=== PATIENT | male | born 1960 | race Caucasian/White ===

== ENCOUNTER 2017-06-13 10:28 | Emergency (ER) | payer MEDICARE, MEDICAID ==
[2017-06-13 10:35] VITALS: BP 139/69
--- NOTE | 2017-06-13 11:59 | RAD ---
INDICATION: Pneumonia COMPARISON: May 24, 2017 TECHNIQUE: PA and lateral dual-energy views were obtained. FINDINGS: Bones/Soft Tissues: There are no acute bony findings. Cardiomediastinal: The cardiomediastinal silhouette is normal. Lungs: There is minimal linear change left lung base most consistent with atelectasis. Patchy basilar infiltrative change has essentially resolved. Pleura: There are no pleural effusions. Other: None IMPRESSION: RESOLUTION OF BASILAR ABNORMALITIES.
--- NOTE | 2017-06-13 12:32 | UC ---
General HPI - HPI Summary HPI Summary: ON 05/24/17 DIAGNOSED WITH BILATERAL BASILLAR PNEUMONIA, GIVEN ALBUTEROL; AND AZITHROMYCIN. SYMPTOMS SEEMED TO CLEAR UP, LAST FOUR DAYS HAS HAD FATIGUE, FACIAL SWELLING, BILATERAL CLEAR EYE DRAINAGE AND UNUSUAL SWALLOWING. - History of Current Complaint Chief Complaint: UCSkin Stated Complaint: SKIN COMPLAINT SWELLING Time Seen by Provider: 06/13/17 11:02 Hx Obtained From: Patient, Family/Nailing Machine Operator Hx From Patient Unobtainable Due To: Other - COGNITIVE IMPAIRMENT Onset/Duration: Gradual Onset, Lasting Weeks, Worse Since - 4 DAYS Timing: Constant Onset Severity: Mild Current Severity: Moderate Associated Signs & Symptoms: Positive: Edema, Weakness, Other - FATIGUE. Negative: Fever, SOB - Allergy/Home Medications Allergies/Adverse Reactions: Allergies Allergy/AdvReac Type Severity Reaction Status Date / Time Penicillins Allergy Unknown Unknown Verified 04/17/15 13:56 Reaction Details Sulfa Drugs Allergy Unknown Unknown Verified 04/17/15 13:56 Reaction Details PMH/Surg Hx/FS Hx/Imm Hx Previously Healthy: Yes Endocrine History: Thyroid Disease Respiratory History: Pneumonia - Surgical History Surgical History: None - Family History Known Family History: Positive: Unknown - Social History Occupation: Disabled Lives: Assisted Living Alcohol Use: None Substance Use Type: None Smoking Status (MU): Never Smoked Tobacco Review of Systems Constitutional: Negative Skin: Other - FACIAL SWELLING Eyes: Drainage ENT: Negative Respiratory: Negative Cardiovascular: Negative Gastrointestinal: Negative Genitourinary: Negative Motor: Negative Neurovascular: Negative Musculoskeletal: Negative Neurological: Negative Psychological: Negative All Other Systems Reviewed And Are Negative: Yes Physical Exam Triage Information Reviewed: Yes Completion Of Physical Exam Limited Due To: Other - COGNITIVE IMPAIRMENT Appearance: No Pain Distress, Well-Nourished, Ill-Appearing Vital Signs: Initial Vital Signs Temp 96.6 F 06/13/17 10:31 Pulse 81 06/13/17 10:31 Resp 18 06/13/17 10:31 BP 139/69 06/13/17 10:31 Pulse Ox 95 06/13/17 10:31 Vital Signs Reviewed: Yes Eyes: Positive: Discharge ENT Exam: Normal ENT: Positive: Normal ENT inspection, Hearing grossly normal, TMs normal Dental Exam: Normal Neck exam: Normal Neck: Positive: Supple, Nontender, No Lymphadenopathy Respiratory Exam: Normal Respiratory: Positive: Chest non-tender, Lungs clear, Normal breath sounds, No respiratory distress, No accessory muscle use Cardiovascular Exam: Normal Cardiovascular: Positive: RRR, No Murmur, Pulses Normal Abdominal Exam: Normal Abdomen Description: Positive: Nontender, No Organomegaly Musculoskeletal Exam: Normal Neurological Exam: Normal Psychological: Positive: Consolable Skin Exam: Normal Course/Dx - Course Course Of Treatment: PATIENT ADVISED TO SEEK HIGHER LEVEL OF CARE AT EMERGENCY DEPARTMENT. PATIENT REFUSED THE OFFER OF AMBULANCE TRANSPORT AND ELECTED TO GO TO THE EMERGENCY DEPARTMENT BY PRIVATE CAR. - Differential Dx - Multi-Symptom Differential Diagnoses: Metabolic Abnormality, Sepsis Provider Diagnoses: FATIGUE; FACIAL SWELLIGN; BILATERAL EYE DRAINAGE Discharge - Discharge Plan Condition: Stable Disposition: OTHER Discharge Disposition Comment: ADVISED TO GO TO ED, REFUSED AMBULANCE Patient Education Materials: Fatigue (ED) Referrals: Bhaskar Lewis MD [Primary Care Provider] - Additional Instructions: YOU HAVE REFUSED THE OFFER OF AMBULANCE TRANSPORT AND HAVE ELECTED TO GO TO THE EMERGENCY DEPARTMENT BY PRIVATE CAR. YOU ARE ADVISED TO PROCEED SAFELY, BUT DIRECTLY TO THE EMERGENCY DEPARTMENT FOR CONTINUED EVALUATION.
== END 2017-06-13 12:30 ==
LOC: UCEAST 10:28
DX: R53.83 Other fatigue (principal); Z88.0 Allergy status to penicillin; Z88.2 Allergy status to sulfonamides; E07.9 Disorder of thyroid, unspecified; Z87.01 Personal history of pneumonia (recurrent); R60.9 Edema, unspecified; H57.8 Other specified disorders of eye and adnexa
CPT/HCPCS: 71020; 99212; G0463

== ENCOUNTER → 2017-06-13 | Emergency (ER) | payer MEDICARE, MEDICAID ==
[~2017-06-13] MED LIST: NS 0.9% 1000 ML* 1,000 ML IV ONE
[2017-06-13 15:19] LABS: Hematocrit 46 % (42-52); Hemoglobin 15.6 g/dl (14.0-18.0); Mean Corpuscular HGB Conc 34 g/dl (31-36); Mean Corpuscular Hemoglobin 33 pg (27-31); Mean Corpuscular Volume 97 fL (80-94); Mean Platelet Volume 8 um3 (7.4-10.4); Red Blood Count 4.77 10^6/ul (4.0-5.4); Red Cell Distribution Width 15 % (10.5-15)
[2017-06-13 15:31] LABS: Troponin I 0.01 ng/mL (<0.04)
[2017-06-13 15:40] LABS: Albumin 3.5 g/dL (3.2-5.2); BUN/Creatinine Ratio 8.6 (8-20); C Reactive Protein 9.97 mg/L (< 5.00); EGFR African American 84.4 (>60); EGFR Non-African American 65.6 (>60); Globulin 3.6 g/dL (2-4); Potassium 4.3 mmol/L (3.5-5.0); Total Bilirubin 0.3 mg/dL (0.2-1.0); Total Protein 7.1 g/dL (6.4-8.9)
[2017-06-13 17:52] LABS: Urine Bilirubin Negative (Negative); Urine Glucose Negative (Negative); Urine Nitrite Negative (Negative)
[2017-06-13 18:42] VITALS: BP 123/98
--- NOTE | 2017-06-14 18:58 | ED ---
Lucila Barrientos Thomas, scribed for Phani Stallworth MD on 06/13/17 at 1457 . Complex/Multi-Sys Presentation - HPI Summary HPI Summary: The pt is a 56 y/o M with a Hx of Down syndrome referred from [facility] and accompanied by his caregiver c/o multiple changes from the patients baseline. The patients history is provided by his caregiver because the patient does not communicate well. He was recently treated for bilateral PNA as an outpatient, and per caregiver, the patient hasnt been right since. At baseline, the patient is able to eat pills via applesauce, but per caregiver the patient is slurping pills recently. He has been spitting up food and has been having difficulty with swallowing food when compared to baseline. He also c/o dizziness , facial swelling, eye drainage, and fatigue. A few days ago, the patient urinary incontinence (changed from baseline), although he no longer has incontinence. Pt denies fevers and vomiting. LEVEL FIVE CAVEAT: HPI LIMITED BY INABILITY TO COMMUNICATE WELL - History Of Current Complaint Chief Complaint: EDGeneral Time Seen by Provider: 06/13/17 13:39 Hx Obtained From: Family/Inside Sales Manager - caregiver present Hx From Patient Unobtainable Due To: Other - inability to communicate well Onset/Duration: Lasting Days - symptoms began after diagnosis of PNA, Still Present Timing: Constant Aggravating Factor(s): None. Alleviating Factor(s): None. Associated Signs And Symptoms: Positive: Other - Difficulty with swallowing and taking pills, spitting up food, dizziness, facial swelling, eye drainage, fatigue, urinary incontinence (none in the ED but some a few days ago); NEGATIVE : fever, vomiting. Related History: Recent Illness - patient was recently treated for bilateral PNA as an outpatient, Other - Patient has Down syndrome - Allergies/Home Medications Allergies/Adverse Reactions: Allergies Allergy/AdvReac Type Severity Reaction Status Date / Time Penicillins Allergy Unknown Unknown Verified 04/17/15 13:56 Reaction Details Sulfa Drugs Allergy Unknown Unknown Verified 04/17/15 13:56 Reaction Details PMH/Surg Hx/FS Hx/Imm Hx Previously Healthy: No - LEVEL FIVE CAVEAT: PMH LIMITED BY INABILITY TO COMMUNICATE WELL Endocrine/Hematology History: Reports: Hx Thyroid Disease - HYPOTHYROID Denies: Hx Diabetes Cardiovascular History: Reports: Hx Hypercholesterolemia - HYPERLIPIDEMIA Denies: Hx Hypertension, Hx Pacemaker/ICD GI History: Reports: Hx Irritable Bowel Sensory History: Reports: Hx Vision Problem - STRABISMUS Denies: Hx Hearing Aid Opthamlomology History: Reports: Hx Vision Problem - STRABISMUS Neurological History: Reports: Hx Developmental Delay - MR, Down Syndrome Denies: Hx Seizures Psychiatric History: Reports: Other Psychiatric Issues/Disorders - HYPOCHONDRIAC Denies: Hx Panic Disorder - Immunization History Date of Tetanus Vaccine: UNK Date of Influenza Vaccine: UNK Infectious Disease History: No Infectious Disease History: Denies: Traveled Outside the [place] in Last 30 Days - Family History Known Family History: Positive: Other - Patient is a Level 5 Caveat d/t limited communication, so FHx unknown - Social History Alcohol Use: None Hx Substance Use: No Substance Use Type: Reports: None Hx Tobacco Use: No Smoking Status (MU): Never Smoked Tobacco Review of Systems - ROS Summary Review of Systems Summary: LEVEL FIVE CAVEAT: ROS LIMITED BY INABILITY TO COMMUNICATE WELL Positive: Fatigue. Negative: Fever Positive: Drainage - eye Positive: Other - Difficulty swallowing, facial swelling Positive: Other - Spitting up food. Negative: Vomiting Positive: incontinence - none in the ED, although some prior Neurological: Other - Dizziness All Other Systems Reviewed And Are Negative: No Physical Exam - Summary Physical Exam Summary: LEVEL FIVE CAVEAT: PHYSICAL EXAM LIMITED BY INABILITY TO COMMUNICATE WELL VITAL SIGNS: Reviewed. GENERAL: Patient is a well-developed and nourished male who is lying comfortable in the stretcher. Patient is not in any acute respiratory distress. HEAD AND FACE: No signs of trauma. No ecchymosis, hematomas or skull depressions. No sinus tenderness. EYES: PERRLA, EOMI x 2, No injected conjunctiva, no nystagmus. EARS: Hearing grossly intact. Ear canals and tympanic membranes are within normal limits. MOUTH: Oropharynx within normal limits. The throat is a little erythematous. NECK: Supple, trachea is midline, no adenopathy, no JVD, no carotid bruit, no c- spine tenderness, neck with full ROM. CHEST: Symmetric, no tenderness at palpation LUNGS: The lungs have coarse breath sounds bilaterally. There are rales in the bases of the lungs. CVS: Regular rate and rhythm, S1 and S2 present, no murmurs or gallops appreciated. ABDOMEN: Soft, non-tender. No signs of distention. No rebound no guarding, and no masses palpated. Bowel sounds are normal. EXTREMITIES: FROM in all major joints, no edema, no cyanosis or clubbing. NEURO: Alert and oriented x 3. No acute neurological deficits. Speech is normal and follows commands. SKIN: Dry and warm Triage Information Reviewed: Yes Vital Signs On Initial Exam: Initial Vitals Temp Pulse Resp BP Pulse Ox 97.5 F 77 20 115/72 98 06/13/17 13:26 06/13/17 13:26 06/13/17 13:26 06/13/17 13:26 06/13/17 13:26 Vital Signs Reviewed: Yes - Archie Coma Scale Coma Scale Total: 15 Diagnostics - Vital Signs Vital Signs Temp Pulse Resp BP Pulse Ox 06/13/17 13:26 97.5 F 77 20 115/72 98 - Laboratory Result Diagrams: 06/13/17 14:50 06/13/17 14:50 Lab Statement: Any lab studies that have been ordered have been reviewed, and results considered in the medical decision making process. - Radiology CXR Xray Interpretation: No Acute Changes - Resolution of basilar abnormalities. ED physician has reviewed this report and agrees. Radiology Interpretation Completed By: Radiologist - EKG 14:46 Cardiac Rate: NL - 76 BPM EKG Rhythm: Sinus Rhythm EKG Interpretation: RBBB. Complex Multi-Symp Course/Dx Assessment/Plan: The pt is a 56 y/o M with a Hx of Down syndrome referred from [facility] and accompanied by his caregiver c/o multiple changes from the patients baseline. The patients history is provided by his caregiver because the patient does not communicate well. He was recently treated for bilateral PNA as an outpatient, and per caregiver, the patient hasnt been right since. At baseline, the patient is able to eat pills via applesauce, but per caregiver the patient is slurping pills recently. He has been spitting up food and has been having difficulty with swallowing food when compared to baseline. He also c /o dizziness, facial swelling, eye drainage, and fatigue. A few days ago, the patient urinary incontinence (changed from baseline), although he no longer has incontinence. Pt denies fevers and vomiting. Test results are without significant abnormalities except glucose 113 and CRP 9.9. UA is negative for UTI. Influenza A and B are negative and Rapid Strep is negative. CXR was read as Resolution of basilar abnormalities. At this point, the patient is hydrated and is eating and drinking well. Therefore, he will be transferred back to the [place] [facility]. The patient is hemodynamically stable and alert and oriented x 3. - Diagnoses Provider Diagnoses: Weakness, Dehydration Discharge - Discharge Plan Condition: Stable Disposition: HOME Patient Education Materials: Weakness (ED), Dehydration (ED) Referrals: Bhaskar Lewis MD [Primary Care Provider] - 3 Days Additional Instructions: Follow up with your primary care provider in 2-3 days. Return to the emergency department for any new or worsening symptoms. The documentation as recorded by the Lucila ibarra Thomas accurately reflects the service I personally performed and the decisions made by , Phani Stallworth MD.
== END | disposition home or self-care (01) ==
LOC: ED 13:22
DX: R53.1 Weakness (principal); E86.0 Dehydration
CPT/HCPCS: 36415; 80053; 81003; 82550; 83605; 83880; 84484; 85025; 86140; 87040; 87502; 87651; 93005; 99282

== ENCOUNTER 2018-08-10 12:08 | Emergency (ER) | payer MEDICARE, MEDICAID ==
[2018-08-10 12:46] VITALS: BP 118/74
[2018-08-10] MEDS ORDERED: Acetaminophen TAB* 325 MG PO ONE (13:42)
--- NOTE | 2018-08-10 13:43 | UC ---
Epistaxis Nasal HPI - HPI Summary HPI Summary: 57 y/o male w/ PMHX of MR brought into the urgent care by social work msw Natividad from [facility] c/o nose abrasion s/p steeping on the curb and falling on his face this morning around 1130. Caregiver states Pt was going to the movies when this happened.No LOC. Pt shows location of pain in the nose and shows pain is 3/10. Caregiver states Pt got up w/o any difficulty and has been acting his normal. She denies, neck pain, GOMEZ, fever, SOB, nose bleeding, dizziness, chest pain, abdominal pain, N/V/D. Pt is UTD w/ Tetanus vaccine. - History of Current Complaint Chief Complaint: UCTrauma Stated Complaint: FACIAL INJURY- NOSE BLEED Time Seen by Provider: 08/10/18 13:21 Hx Obtained From: Family/Rehab Care Assistant - Caregiver Mrs Henson Onset/Duration: Sudden Onset, Lasting Hours - 2hrs Timing: Constant Severity Initially: Mild Severity Currently: Mild Pain Intensity: 3 - at touch Pain Scale Used: 0-10 Numeric Character: Light - w/ abrasions Aggravating Factor(s): Nasal Trauma Alleviating Factor(s): Ice Associated Signs And Symptoms: Positive: Bruising. Negative: Hematuria, Hematochezia, Sinus Pain, Nasal Discharge, Recent Abnormal Coagulation Studies, Foreign Body - Allergies/Home Medications Allergies/Adverse Reactions: Allergies Allergy/AdvReac Type Severity Reaction Status Date / Time Penicillins Allergy unk Verified 08/10/18 12:47 Sulfa (Sulfonamide Allergy unk Verified 08/10/18 12:47 Antibiotics) PMH/Surg Hx/FS Hx/Imm Hx Previously Healthy: Yes Endocrine History: Hypothyroidism Other GI/ History: IBS Neurological History: Seizures Other Neurological History: Down syndrome - Surgical History Surgical History: None - Family History Known Family History: Positive: Unknown, Other - Patient is a Level 5 Caveat d/ t limited communication, so FHx unknown - Social History Occupation: Disabled Lives: Long Term Alcohol Use: None Substance Use Type: None Smoking Status (MU): Never Smoked Tobacco - Immunization History Hx Tetanus, Diphtheria Vaccination: Yes Review of Systems All Other Systems Reviewed And Are Negative: Yes Constitutional: Positive: Negative Skin: Positive: Bruising - and abrasion over the nose w/ mild swelling Eyes: Positive: Negative ENT: Positive: Negative Respiratory: Positive: Negative Cardiovascular: Positive: Negative Gastrointestinal: Positive: Negative Genitourinary: Positive: Negative Motor: Positive: Negative Neurovascular: Positive: Negative Musculoskeletal: Positive: Other: - Nose pain s/p fall Neurological: Positive: Negative Psychological: Positive: Negative Is Patient Immunocompromised?: No Physical Exam - Summary Physical Exam Summary: Vital signs: reviewed General: well developed, well nourished MR lim sitting in the examining table w /o mook apparent pain or respiratory distress. Pt interacts well w/ provider and point location of pain is the nose.. Skin: [place], warm and dry, no surface trauma. HEENT: -Head: atraumatic, no palpable deformities, -Eyes: PERRLA and EOMI, no periorbital ecchymosis. -Ears: TMs clear, no hemotympanum or Battles sign. -Nose/Face: Positive anterior nose w/ skin abrasion w/ mild Soft tissue swelling, mild ecchymosis, no deformity, B/L nostrils clear. edematous and erythematous nasal mucosa. Nostrils cleaned w/ saline water and and no presence of blood observed. No septal hematoma. No Midface instability, movement of superior alveolar ridge. No Tenderness of zygoma, maxilla, mandible. -Mouth/Throat: no intraoral trauma, Teeth and mandible are intact. Neck: no point tenderness, step-off or deformity to firm palpation of the cervical spine at the midline. No spasm or paraspinal muscle tenderness. Trachea midline. Carotids equal. No masses. FROM without limitation or pain. Chest: no surface trauma or asymmetry. NT without crepitus or deformity. Normal tidal volume. CTA bilaterally. Oxygen saturation greater than 95% on room air. Heart: RRR, no murmur, rub, or gallop. All peripheral pulses are intact and equal. Abd: nondistended without abrasions or ecchymosis. Bowel sounds are active. NT , guarding or rebound. No masses. Good femoral pulses. Back: no contusions, ecchymosis, or abrasions are noted, NT, without step-off or deformity to firm palpation of the thoracic and lumbar spine. Extrems: no surface trauma. FROM. Distal motor, neuromuscular supply is intact. Neuro: A&O x3, GCS 15, CN II-XII grossly intact. Motor and sensory exam nonfocal. Reflexes are symmetric. Speech is clear and gait steady. Triage Information Reviewed: Yes Vital Signs: Initial Vital Signs Temp 98 F 08/10/18 12:43 Pulse 74 08/10/18 12:43 Resp 18 08/10/18 12:43 BP 118/74 08/10/18 12:43 Pulse Ox 98 08/10/18 12:43 Epistaxis Nasal Course/Dx - Course Course Of Treatment: 57 y/o male w/ PMHX of MR brought into the urgent care by social work msw Natividad from [facility] c/o nose abrasion s/p steeping on the curb and falling on his face this morning around 1130. Caregiver states Pt was going to the movies when this happened.No LOC. Pt shows location of pain in his nose and shows pain is 3/10. Caregiver states Pt got up w/o any difficulty and has been acting his normal. She denies, neck pain,GOMEZ, fever, SOB, nose bleeding, dizziness, chest pain, abdominal pain, N/V/D. Pt is UTD w/ etanus vaccine. Hx obtained. Pt is hemodunamically stable and interacts w / provider. Positive anterior nose w/ superficial abrasion w/ swelling and mild tenderness to palpation and the rest of PE is WNL. Maxillofacial CT ordered to r/o fracture or hematoma. Impression:Brain and soft tissue is unrmarkable as per radiologist. Pt's nose irrigated w/ NS and cleaned by Nurse. I cleaned w/ Iodine Swabs 3X and applied Bacitracin oint over abrasion. pt tolerated well procedure.Caregiver advised to continue applying Bacitracin oint and give tylenol PO to alleviate pain and swelling. Close observation on Pt's behavior and if any dizziness, GOMEZ, visual disturbances or neck pain develops to take Pt inmediately to the ER for further management. D/C instructions explained and written. Caregiver understood and agreed w/ plan of care. Pt left clinic hemodynamically stable and ambulating. - Differential Dx/Diagnosis Differential Diagnosis/HQI/PQRI: Epistaxis, Trauma, Other - contusion Provider Diagnosis: Facial abrasion, Facial contusion, Contusion, nose Discharge - Sign-Out/Discharge Documenting (check all that apply): Patient Departure - d/c home All imaging exams completed and their final reports reviewed: Yes - Discharge Plan Condition: Stable Disposition: HOME Patient Education Materials: Abrasion (ED), Facial Contusion (ED) Referrals: Bhaskar Lewis MD [Primary Care Provider] - 3 Days Additional Instructions: 1-Please apply bacitracin oint topical antibiotic over the abrasions. Keep wound clean and dry 2--Take Tylenol PO q6-8hrs prn for pain or swelling. apply ice over contusion to decrease swelling. first dose of Tylenol given at the clinic today 3- If PT develops fever or discharge around abrasions please return to the Urgent care or f/u w/ your PCP for further management. 4- facial CT is negative. But if he develops severe GOMEZ, nausea and vomiting please take him to the ER for further management. - Billing Disposition and Condition Condition: STABLE Disposition: Home
== END 2018-08-10 14:51 | disposition home or self-care (01) ==
LOC: UCEAST 12:08
DX: S00.33XA Contusion of nose, initial encounter (principal); S00.81XA Abrasion of other part of head, initial encounter; R04.0 Epistaxis; Z88.0 Allergy status to penicillin; Z88.2 Allergy status to sulfonamides; X58.XXXA Exposure to other specified factors, initial encounter; Y92.9 Unspecified place or not applicable
CPT/HCPCS: 70486; 99211; A9270-GY; G0463

== ENCOUNTER 2018-11-18 10:13 | Inpatient (IN) | payer MEDICARE, MEDICAID ==
--- NOTE | 2018-11-18 10:18 | ED ---
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 Pt lives in a senior living, per staff, pt does not have a fever. Associated sx: cough. He has a known dx: PNA. Pt was given a duoneb by EMS. - History of Current Complaint Stated Complaint: sSHORT OF BREATH Hx Obtained From: EMS Hx From Patient Unobtainable Due To: Other - Down Syndrome Onset/Duration: Still Present Initial Severity: Moderate Current Severity: Moderate Character: Cough (Productive), Dyspnea at Rest - Allergy/Home Medications Allergies/Adverse Reactions: Allergies Allergy/AdvReac Type Severity Reaction Status Date / Time Penicillins Allergy unk Verified 11/18/18 10:24 Sulfa (Sulfonamide Allergy unk Verified 11/18/18 10:24 Antibiotics) Home Medications: Home Medications Levothyroxine Sodium 50 mcg PO DAILY 11/18/18 [History Confirmed 11/18/18] Loratadine 10 mg PO DAILY 11/18/18 [History Confirmed 11/18/18] Polyethylene Glycol 3350 [Miralax] 1 packet PO DAILY 11/18/18 [History Confirmed 11/18/18] levETIRAcetam TAB* [Keppra TAB*] 750 mg PO BEDTIME 11/18/18 [History Confirmed 11/18/18] PMH/Surg Hx/FS Hx/Imm Hx Previously Healthy: No Endocrine/Hematology History: Reports: Hx Thyroid Disease - HYPOTHYROID Denies: Hx Diabetes Cardiovascular History: Reports: Hx Hypercholesterolemia - HYPERLIPIDEMIA Denies: Hx Hypertension, Hx Pacemaker/ICD GI History: Reports: Hx Irritable Bowel Sensory History: Reports: Hx Vision Problem - STRABISMUS Denies: Hx Hearing Aid Opthamlomology History: Reports: Hx Vision Problem - STRABISMUS Neurological History: Reports: Hx Developmental Delay - MR, Down Syndrome Denies: Hx Seizures Psychiatric History: Reports: Other Psychiatric Issues/Disorders - HYPOCHONDRIAC Denies: Hx Panic Disorder - Immunization History Date of Tetanus Vaccine: UNK Date of Influenza Vaccine: UNK - Family History Known Family History: Positive: Unknown, Other - Patient is a Level 5 Caveat d/ t limited communication, so FHx unknown - Social History Occupation: Disabled Lives: Snf Alcohol Use: None Hx Substance Use: No Substance Use Type: Reports: None Hx Tobacco Use: No Smoking Status (MU): Never Smoked Tobacco Review of Systems - ROS Summary Review of Systems Summary: LEVEL 5 CAVEAT: ROS LIMITED DUE TO PT CONDITION, DOWN SYNDROME Negative: Fever Positive: Shortness Of Breath, Cough All Other Systems Reviewed And Are Negative: No Physical Exam - Summary Physical Exam Summary: Appearance: The patient is well-nourished in no acute distress and in no acute pain. Skin: The skin is warm and dry and skin color reflects adequate perfusion. HEENT: The head is normocephalic and atraumatic. The pupils are equal and reactive. The conjunctivae are clear and without drainage. Nares are patent and without drainage. Mouth reveals moist mucous membranes and the throat is without erythema and exudate. The external ears are intact. The ear canals are patent and without drainage. The tympanic membranes are intact. Neck: the neck is supple with full range of motion and non-tender. There are no carotid bruits. There is no neck vein distension. Respiratory: Chest is non-tender. Rhonchi in all lung black, breathing shallowly, tachypneic, wet cough. Cardiovascular: Heart is regular rate and rhythm. There is no murmur or rub auscultated. There is no peripheral edema and pulses are symmetrical and equal. Abdomen: The abdomen is soft and non-tender. There are normal bowel sounds heard in all four quadrants and there is no organomegaly palpated. Musculoskeletal: There is no back tenderness noted. Extremities are non-tender with full range of motion. There is good capillary refill. There is no peripheral edema or calf tenderness elicited. Neurological: Patient is alert and oriented to person, place and time. The patient has symmetrical motor strength in all four extremities. Cranial nerves are grossly intact. Deep tendon reflexes are symmetrical and equal in all four extremities. Psychiatric: The patient has an appropriate affect and does not exhibit any anxiety or depression. Triage Information Reviewed: Yes Vital Signs Reviewed: Yes Diagnostics - Laboratory Result Diagrams: 11/18/18 10:49 11/18/18 10:49 Lab Statement: Any lab studies that have been ordered have been reviewed, and results considered in the medical decision making process. - Radiology CXR Radiology Interpretation Completed By: Radiologist Summary of Radiographic Findings: IMPRESSION: NO ACTIVE CARDIOPULMONARY DISEASE IS NOTED. ED provider has reviewed this report. - EKG 1038 Cardiac Rate: NL - 96 bpm EKG Rhythm: Sinus Rhythm EKG Comparison: No Significant Change - from EKG on 06/13/17. Summary of EKG Findings: RBBB. Disposition - Course Course Of Treatment: Mr. Ji came in with a marginal respiratory status. His pulse ox would drop down to the high 80s if left on room air. He had a very wet cough. He had improved on the way in with some nebulizer and those were continued here in the emergency department as well as Solu-Medrol. His chest x- ray showed no pneumonia and labs were generally unremarkable. It was my hope that we would build to discharge him back however in spite of the treatment his respiratory status did not improve. I contact the hospitalist for admission. - Diagnoses Provider Diagnoses: Bronchitis, Bronchospasm, Respiratory insufficiency - Physician Notifications Discussed Care Of Patient With: Laina Manley - hospitalist Time Discussed With Above Provider: 15:55 Instructed by Provider To: Admit As Inpatient - Critical Care Time Critical Care Time: 30-74 min - 30 mins CCT Discharge - Sign-Out/Discharge Documenting (check all that apply): Patient Departure - ADMIT Patient Received Moderate/Deep Sedation with Procedure: No - Discharge Plan Condition: Stable Disposition: ADMITTED TO [facility] - Billing Disposition and Condition Condition: STABLE Disposition: Admitted to [facility] - Attestation Statements Document Initiated by Scribe: Yes Documenting Scribe: Wang Proctor Provider For Whom Scribe is Documenting (Include Credential): Dr. Matthew Donnelly MD Scribe Attestation: I, Wang Proctor, scribed for Dr. Matthew Donnelly MD on 11/18/18 at 2118. Scribe Documentation Reviewed: Yes Provider Attestation: The documentation as recorded by the Wang ibarra accurately reflects the service I personally performed and the decisions made by me, Dr. Matthew Donnelly MD Status of Scribe Document: Viewed
[2018-11-18 10:56] LABS: Influenza A Molecular NEGATIVE (Negative); Influenza B Molecular NEGATIVE (Negative)
[2018-11-18 10:57] LABS: ABS Basophils 0.1 10^3/ul (0-0.2); ABS Eosinophils 0.1 10^3/ul (0-0.6); ABS Lymphocytes 1.6 10^3/ul (1.0-4.8); ABS Monocytes 0.8 10^3/ul (0-0.8); ABS Neutrophils 4.5 10^3/ul (1.5-7.7); ABS Nucleated RBC 0 10^3/ul; Eosinophil % 0.9 %; Hematocrit 47 % (36-46); Hemoglobin 15.7 g/dL (14.0-18.0); Lymphocyte % 23.2 %; Mean Corpuscular HGB Conc 34 g/dL (31-36); Mean Corpuscular Hemoglobin 32 pg (27-31); Mean Corpuscular Volume 96 fL (80-94); Mean Platelet Volume 7.9 fL (7.4-10.4); Nucleated Red Blood Cells % 0; Platelet Count 176 10^3/uL (150-450); Red Blood Count 4.85 10^6 /uL (4.18-5.48); Red Cell Distribution Width 14 % (10.5-15)
--- OUTSIDE RECORDS SUMMARY | 2018-11-18 11:07 | XMS REPORT | Continuity of Care Document ---
:1960 External Reference #:[id number] Author Name Bhaskar Juarez MD Address [address] [facility] [place] [address] Care Team Providers Name Role Phone Bhaskar Lewis MD Care Team Information Contract Administrator Unavailable Bhaskar Lewis MD Primary Care Physician Unavailable Payers Date Identification Numbers Payment Provider Subscriber Effective: 2002 Policy Number: [id number] [facility] [facility] PayID: [id number] [address] [place] [address] Effective: 2002 Policy Number: [id number] [facility] Expires: 2018 PayID: [id number] [address] [place] [address] Effective: 2013 Policy Number: [id number] Medicaid [place] Christana Ji PayID: [id number] [address] [place] [address] Advance Directives Description No Information Available Problems Date Description Provider Status Onset: 04/29/2014 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 Active Onset: 04/29/2014 Hypothyroidism Omi Garner M.D. Active Onset: 10/13/2015 Bronchitis Samson Case M.D. Active Onset: 10/13/2015 Acute upper respiratory infection, Samson Case M.D. 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 Active Onset: 06/13/2018 Other hyperlipidemia Bhaskar Lewis M.D. Active Onset: 06/13/2018 Vitamin D deficiency Bhaskar Lewis M.D. Active Onset: 05/24/2017 Pneumonia Tee John M.D. 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 /2018 today , Ann edmondson MD po qd for 4 days Levothyroxine 07/27 Active Tablets 75mcg 90tab 1 By Mouth E03.9 Bhaskar Freed Sodium s Every Day Ferny Lewis Loratadine 06/13 Active Tablets 10mg 30tab 1 Tab By Bhaskar Freed /2017 s Mouth Joshua, Every Day M.DKeith For Allergies Polyethylene 02/21 Active Powder 3350NF 527un Mix 17G Bhaskar Lourdes Glycol 335 its (=20cc) [facility], Fluid And M.DKeith Drink Twice Daily (Constipat ion) Hold For Loose Stool Daily-Kemar 01/03 Active Tablets 30tab take 1 Bhaskar Freed s tablet by Joshua mouth M.D. every day (supplemen t) Simvastatin 12/27 Active Tablets 40mg 30tab Take 1 E78.5 Bhaskar Freed s Tablet By Gustavo Lewis AT M.D. Bedtime (Hyperlipi demia) Divalproex Active Tablets ER 500mg 3 by mouth Unknown Sodium ER /0000 24HR q hs Keppra Active Tablets 500mg 1.5 po Unknown /0000 daily Ibuprofen Active Tablets 200mg 2 by mouth Unknown every 12hours as needed for pain/disoc mfort Bacitracin Active Ointment 500Unit/G apply to Unknown /0000 M mnor skin abrasions bid prn Robitussin DM Active Syrup 100-10mg/ 2 teaspoon Unknown 5ML every 4 hours as needed for cough Peridex 0.12% Active 473un rinse with Bhaskar Freed Oral Rinse So / its 2 teaspoon Breimamelodie, daily. use M.D. toothette swab to swab gums with 2 teaspoon once daily (gingiviti s) Dulcolax Active Tablets DR 5mg Unknown /0000 Acetaminophen Active Tablets 325mg take two Unknown tablets by mouth bid times a day as needed maximum daily dose=4 tablets Dayo-Gest Active Chewtabs 500mg 2 tabs Unknown Antacid four times daily prn Hydrocortisone Active Cream 1% twice Unknown Intensive daily prn Healing Chlorhexidine Active Solution 0.12% 473un 10 cubic Bhaskar Lourdes Gluconate / its centimeter Joshua s swab M.D. 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 06/01 Medrol 05/26 Hx TBPK 4mg 1unit use as Bhaskar Freed /2016 Gissel Nicholas M.D. 06/01 Azithromycin 05/24 Hx Tablets 250mg 10tab 2 po qd Tee F. /2016 s for 3 days Dora, - , then debo Isaacs 05/29 po qd for 4 days Albuterol 05/24 Hx Nebulizer (2.5mg/3M 75ml use one Tee FKeith L) 0.083% vial in [facility], - nebulizer M.D. 08/01 four times /2016 a day Azithromycin 12/30 Hx Tablets 250mg 6tabs 2 tabs by J20.9 . mouth day melodie, - #1 then 1 M.D. 01/27 tab by /2016 mouth day#2-5 Multi-Vitamins 08/22 Hx Tablets 30tab take 1 . s tablet by juana ntonio, - mouth M.D. 01/03 every (supplemen t) Miralax 07/04 Hx Powder 527GM 527un mix 17g its (=20cc) in , - fluid and M.D. 02/20 drink twice daily (constipat ion) hold for loose stool Miralax 07/04 Hx Powder 3350NF 510un mix 17g its (=20cc) in , - fluid and M.D. 02/21 drink twice daily (constipat ion) hold for loose stool Dulcolax 5MG 04/12 Hx Tablet Ec 60tab 2 Tabs s (10MG) On , - Day 3 Of M.D. 11/16 No Bowel Movement as Needed Constipati on - December Repeat In 6-Hours If No Response (Notify RN) Miralax 03/18 Hx Powder 3350NF 1530u 17 gm in 8 nits oz water , - daily as M.D. 03/18 needed for constipati on Miralax 03/18 Hx Powder 527GM 527un mix 17g in its fluid and n, - drink M.D. 03/18 twice daily Miralax 03/18 Hx Powder 3350NF 527un mix 17 gm its in fluid , - and drink .D. 07/04 bid Clindamycin HCL 10/13 Hx Capsules 300mg 30cap 1 by mouth J06.9 Samson T. s three Midura, - times a M.D. 01/03 day Zocor 08/28 Hx Tablets 40mg 30tab take 1 E78.5 s tablet by Joshua, - mouth at M.D. 12/27 bed (hyperlipi demia) Azithromycin 08/13 Hx Tablets 250mg 6tabs 2 tabs by J20.9 Omi Garner mouth day M.D. - #1 then 1 08/27 tab by /2014 mouth day#2-5 Miralax 04/10 Hx Powder 527GM 527un mix 17g in Bhaskar Freed /2014 its fluid and Joshua, - drink M.D. 03/18 twice daily One Daily 03/25 Hx Tablets 28tab Take 1 Omi Garner s Tablet By M.D. 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 - every 4 06/12 hours needed fever Multivitamins Hx Capsules 1 po qd Unknown /0000 - 10/13 Simvastatin Hx Tablets 40mg 30tab take one E78.5 Omi Garner, s tablet by M.D. - mouth at 08/28 bed Acetaminophen Hx Tablets ER 650mg 120ta 1 po q 6 Unknown ER /0000 bs hrs prn - pain/disco 06/12 temp greater than 101 Dulcolax 00 Hx 10mg 1 q 6 hrs Unknown /0000 prn - 06/12 Zocor Hx Tablets 40mg take one Unknown /0000 tablet by - mouth at 09/30 bed Miralax 00 Hx Powder 3350NF 1Bott 17 gm Omi Garner, le powder in M.D. - fluid bid 04/10 Calamine Hx Lotion apply to Unknown /0000 affected - areas to 11/16 alleviate rash or bites tid prn Maalox 00 Hx Suspension 2 tsp po Unknown /0000 prn - between 11/16 meals & bedtime for indigestio n Mineral Oil Hx Oil 500ml 3 drops Bhaskar Freed / each ear Joshua, - every day M.D. 11/16 x3 days /2018 and rn to flush on day 4 Desitin 00 Hx Creamy 13% 113un Apply To Bhaskar Freed /0000 its Red, Joshua, - Irritated M.D. 11/16 Areas Times Daily as Needed Until Resolved.N otify RN, Seferino Note, Notify RN If No Improvemen t Synthroid Hx Tablets 50mcg 30tab take 1 E03.9 Bhaskar Freed /0000 s tablet by Joshua, - mouth M.D. 12/15 every on an empty stomach (hypothyro idism) Multivitamin 00 Hx Tablets 1 by mouth Unknown Adult /0000 every day - 06/12 Tylenol Hx Tablets 325mg 2 tabs by Unknown /0000 mouth - every 11/16 6hours needed for pain Immunizations CPT Code Status Date Vaccine Lot # [id number] Given 06/13/2018 Influenza Vac, Quadrivalent, Slit Virus, Im [id number] Given 06/13/2018 Pneumococcal Conjugate Vacc-13 [id number] Given 05/31/2016 Influenza Vac, Quadrivalent, Slit Virus, Im [id number] 61519 Given 06/06/2015 Influenza Vac, Quadrivalent, Slit Virus, Im [id number] Given 06/24/2014 Split Influenza Medicare: [id number] Given 06/24/2014 DO Not Use Split Influenza Virus Vaccine [id number] Vital Signs Date Vital Result Comment 11/16/2018 3:42pm BP Systolic 122 mmHg BP Diastolic 74 mmHg Heart Rate 80 /min Body Temperature 98.9 F Respiratory Rate 20 /min O2 % BldC Oximetry 92 % Weight 189.00 lb 06/13/2018 10:16am BP Systolic 124 mmHg BP Diastolic 84 mmHg Heart Rate 72 /min Body Temperature 98.0 F Respiratory Rate 16 /min Height 69 inches 5'9" Weight 188.00 lb BMI (Body Mass Index) 27.8 kg/m2 04/11/2018 10:32am BP Systolic 110 mmHg BP Diastolic 60 mmHg Heart Rate 66 /min Body Temperature 98.1 F Respiratory Rate 16 /min Weight 184.38 lb 08/01/2017 10:00am BP Systolic 120 mmHg BP Diastolic 70 mmHg Heart Rate 68 /min Body Temperature 98.8 F Weight 179.00 lb 06/12/2017 9:25am BP Systolic 118 mmHg BP Diastolic 62 mmHg Heart Rate 80 /min Body Temperature 97.9 F Weight 177.50 lb 06/01/2017 3:00pm BP Systolic 112 mmHg BP Diastolic 78 mmHg Heart Rate 64 /min Body Temperature 97.4 F Respiratory Rate 16 /min Height 59 inches 4'11" Weight 191.12 lb BMI (Body Mass Index) 38.6 kg/m2 05/26/2017 11:33am BP Systolic 108 mmHg BP Diastolic 62 mmHg Heart Rate 72 /min Body Temperature 98.1 F Respiratory Rate 16 /min Height 59 inches 4'11" Weight 191.12 lb BMI (Body Mass Index) 38.6 kg/m2 05/24/2017 1:05pm BP Systolic 104 mmHg BP Diastolic 60 mmHg Heart Rate 72 /min Body Temperature 98.5 F Respiratory Rate 18 /min Height 59 inches 4'11" Weight 187.38 lb BMI (Body Mass Index) 37.8 kg/m2 01/27/2017 9:55am BP Systolic 112 mmHg BP Diastolic 72 mmHg Heart Rate 64 /min Body Temperature 98.1 F Height 59 inches 4'11" Weight 184.25 lb BMI (Body Mass Index) 37.2 kg/m2 12/30/2016 3:00pm BP Systolic 110 mmHg BP Diastolic 60 mmHg Heart Rate 80 /min Body Temperature 98.1 F Respiratory Rate 18 /min Height 59 inches 4'11" Weight 184.00 lb BMI (Body Mass Index) 37.2 kg/m2 07/25/2016 9:51am BP Systolic 126 mmHg BP Diastolic 80 mmHg Heart Rate 68 /min Body Temperature 97.1 F Respiratory Rate 20 /min Height 59 inches 4'11" Weight 183.38 lb BMI (Body Mass Index) 37.0 kg/m2 01/04/2016 8:32am BP Systolic 126 mmHg BP Diastolic 70 mmHg Heart Rate 64 /min Body Temperature 97.6 F Respiratory Rate 20 /min Height 59 inches 4'11" Weight 176.00 lb BMI (Body Mass Index) 35.5 kg/m2 10/13/2015 3:00pm BP Systolic 96 mmHg BP Diastolic 60 mmHg Heart Rate 72 /min Body Temperature 97.7 F Respiratory Rate 16 /min Height 60 inches 5'0" stated Weight 178.38 lb BMI (Body Mass Index) 34.8 kg/m2 08/13/2015 3:11pm BP Systolic 94 mmHg BP Diastolic 64 mmHg Heart Rate 80 /min Body Temperature 98.1 F Respiratory Rate 16 /min Height 60 inches 5'0" stated Weight 176.00 lb BMI (Body Mass Index) 34.4 kg/m2 06/30/2015 10:09am BP Systolic 100 mmHg BP Diastolic 62 mmHg Heart Rate 74 /min Body Temperature 98.1 F Respiratory Rate 18 /min Height 60 inches 5'0" stated Weight 172.00 lb BMI (Body Mass Index) 33.6 kg/m2 05/05/2015 12:58pm BP Systolic 110 mmHg BP Diastolic 70 mmHg Heart Rate 72 /min Body Temperature 98.0 F Respiratory Rate 18 /min Height 60 inches 5'0" stated Weight 172.00 lb BMI (Body Mass Index) 33.6 kg/m2 04/20/2015 2:34pm BP Systolic 92 mmHg BP Diastolic 60 mmHg Heart Rate 68 /min Body Temperature 97.7 F Respiratory Rate 16 /min Height 60 inches 5'0" stated Weight 173.00 lb BMI (Body Mass Index) 33.8 kg/m2 02/06/2015 11:17am BP Systolic 90 mmHg BP Diastolic 60 mmHg Heart Rate 60 /min Body Temperature 97.6 F Respiratory Rate 16 /min Height 60 inches 5'0" stated Weight 172.00 lb BMI (Body Mass Index) 33.6 kg/m2 09/30/2014 8:41am BP Systolic 122 mmHg BP Diastolic 76 mmHg Heart Rate 60 /min Body Temperature 97.1 F Respiratory Rate 16 /min Height 60 inches 5'0" stated Weight 170.00 lb BMI (Body Mass Index) 33.2 kg/m2 04/29/2014 2:15pm BP Systolic 110 mmHg BP Diastolic 80 mmHg Heart Rate 72 /min Body Temperature 97.7 F Respiratory Rate 16 /min Height 60 inches 5'0" stated Weight 172.00 lb BMI (Body Mass Index) 33.6 kg/m2 Results Test Date Facility Test Result H/L Range Note Urinalysis Profile 10/18/2018 [facility] Urine Color Yellow Urine Appearance Clear Urine Specific Alva 1.018 N 1.010-1.030 Urine pH 6.0 N 5-9 Urine Urobilinogen Negative Negative Urine Ketones Trace Abnormal Negative Urine Protein Negative Negative Urine Leukocytes Negative Negative Urine Blood Negative Negative * * Abnormal Negative 1 Urine Nitrite Negative Negative Urine Bilirubin Negative Negative Urine Glucose Negative Negative Urine Culture And 10/18/2018 [facility] Urine Culture SEE RESULT 2 Sensitivities BELOW Lipid Profile 06/22/2018 [place] [facility] ([facility]) Cholesterol 166 mg/dL 120- 200 Triglycerides 104 mg/dL 30-200 HDL Cholesterol 49 mg/dL 30-70 LDL (Calculated) 96 CALC 0-129 VLDL Cholesterol 21 mg/dL 0-50 HDL Risk Factor 3.4 CALC 0.0-4.4 Laboratory test 06/22/2018 [facility] ([facility]) TSH 9.32 mIU/L High 0.50- 6.00 3 finding Free T4 1.16 ng/dL 0.75-1.54 4 Vitamin D25 49 30-100 Laboratory test 06/22/2018 [facility] Valproic Acid 114.0 g/mL High 50-100 5 finding (Depakene) Levetiracetam (Keppra) 15.6 g/mL 6 CBC Auto Diff 11/03/2017 [facility] White Blood Count 3.8 10^3/uL N 3.5-10.8 Red Blood Count 4.67 10^6/uL N 4.0-5.4 Hemoglobin 15.5 g/dL N 14.0-18.0 Hematocrit 45 % N 42-52 Mean Corpuscular Volume 97 fL High 80-94 Mean Corpuscular Hemoglobin 33 pg High 27-31 Mean Corpuscular HGB Conc 34 g/dL N 31-36 Red Cell Distribution Width 14 % N 10.5-15 Platelet Count 208 10^3/uL N 150-450 Mean Platelet Volume 8 um3 N 7.4-10.4 Abs Neutrophils 1.2 10^3/uL Low 1.5-7.7 Abs Lymphocytes 2.1 10^3/uL N 1.0-4.8 Abs Monocytes 0.4 10^3/uL N 0-0.8 Abs Eosinophils 0 10^3/uL N 0-0.6 Abs Basophils 0 10^3/uL N 0-0.2 Abs Nucleated RBC 0 10^3/uL Granulocyte % 30.6 % Low 38-83 Lymphocyte % 56.6 % High 25-47 Monocyte % 11.2 % High 0-7 Eosinophil % 1.2 % N 0-6 Basophil % 0.4 % N 0-2 Nucleated Red Blood Cells % 0.1 Comp Metabolic Panel 11/03/2017 [facility] Sodium 131 mmol/L Low 133-145 Potassium 4.5 mmol/L N 3.5-5.0 Chloride 95 mmol/L Low 101-111 Co2 Carbon Dioxide 32 mmol/L N 22-32 Anion Gap 4 mmol/L N 2-11 Glucose 98 mg/dL N 70-100 Blood Urea Nitrogen 10 mg/dL N 6-24 Creatinine 0.97 mg/dL N 0.67-1.17 BUN/Creatinine Ratio 10.3 N 8-20 Calcium 9.2 mg/dL N 8.6-10.3 Total Protein 7.1 g/dL N 6.4-8.9 Albumin 3.7 g/dL N 3.2-5.2 Globulin 3.4 g/dL N 2-4 Albumin/Globulin Ratio 1.1 N 1-3 Total Bilirubin 0.40 mg/dL N 0.2-1.0 Alkaline Phosphatase 45 U/L N 34-104 Alt 16 U/L N 7-52 Ast 23 U/L N 13-39 Egfr Non- 80.4 >60 Egfr 103.3 >60 7 Laboratory test 11/03/2017 [facility] Valproic Acid 121.0 g/mL High 50-100 finding (Depakene) Levetiracetam (Keppra) 24.0 g/mL 8 Laboratory test finding 06/13/2017 [facility] Lactic Acid 1.0 mmol/L N 0.5-2.0 9 Blood Culture SEE RESULT BELOW 10 CBC Auto Diff 06/13/2017 [facility] White Blood Count 5.0 10^3/uL N 3.5-10.8 Red Blood Count 4.77 10^6/uL N 4.0-5.4 Hemoglobin 15.6 g/dL N 14.0-18.0 Hematocrit 46 % N 42-52 Mean Corpuscular Volume 97 fL High 80-94 Mean Corpuscular Hemoglobin 33 pg High 27-31 Mean Corpuscular HGB Conc 34 g/dL N 31-36 Red Cell Distribution Width 15 % N 10.5-15 Platelet Count 203 10^3/uL N 150-450 Mean Platelet Volume 8 um3 N 7.4-10.4 Abs Neutrophils 2.9 10^3/uL N 1.5-7.7 Abs Lymphocytes 1.4 10^3/uL N 1.0-4.8 Abs Monocytes 0.5 10^3/uL N 0-0.8 Abs Eosinophils 0.2 10^3/uL N 0-0.6 Abs Basophils 0 10^3/uL N 0-0.2 Abs Nucleated RBC 0 10^3/uL N Granulocyte % 58.2 % N 38-83 Lymphocyte % 27.4 % N 25-47 Monocyte % 10.3 % High 1-9 Eosinophil % 3.1 % N 0-6 Basophil % 1.0 % N 0-2 Nucleated Red Blood Cells % 0 N Laboratory test finding 06/13/2017 [facility] Creatine Kinase(CK) 94 U/L N 10- 223 C Reactive Protein 9.97 mg/L High < 5.00 11 B-Type Natriuretic Peptide BNP 41 pg/mL N 12 Comp Metabolic Panel 06/13/2017 [facility] Sodium 136 mmol/L N 133-145 Potassium 4.3 mmol/L N 3.5-5.0 Chloride 100 mmol/L Low 101-111 Co2 Carbon Dioxide 33 mmol/L High 22-32 Anion Gap 3 mmol/L N 2-11 Glucose 113 mg/dL High 70-100 Blood Urea Nitrogen 10 mg/dL N 6-24 Creatinine 1.16 mg/dL N 0.67-1.17 BUN/Creatinine Ratio 8.6 N 8-20 Calcium 9.0 mg/dL N 8.6-10.3 Total Protein 7.1 g/dL N 6.4-8.9 Albumin 3.5 g/dL N 3.2-5.2 Globulin 3.6 g/dL N 2-4 Albumin/Globulin Ratio 1.0 N 1-3 Total Bilirubin 0.30 mg/dL N 0.2-1.0 Alkaline Phosphatase 49 U/L N 34-104 Alt 16 U/L N 7-52 Ast 21 U/L N 13-39 Egfr Non- 65.6 N >60 Egfr 84.4 N >60 13 Laboratory test 06/13/2017 [facility] Troponin I 0.01 ng/mL N <0.04 finding Laboratory test 06/13/2017 [facility] Rapid Strep Negative N Negative 14 finding Molecular Laboratory test 06/13/2017 [facility] Rapid Strep A SEE RESULT BELOW 15 finding Rapid Influenza A & B Antigen SEE RESULT BELOW 16 Rapid Influenza A & B 06/13/2017 [facility] Influenza A Molecular NEGATIVE N Negative 17 Molecular Influenza B Molecular NEGATIVE N Negative Urinalysis Profile 06/13/2017 [facility] Urine Color Yellow N Urine Appearance Cloudy N Urine Specific Alva 1.029 N 1.010-1.030 Urine pH 5.0 N 5-9 Urine Urobilinogen Negative N Negative Urine Ketones 1+ Abnormal Negative Urine Protein Negative N Negative Urine Leukocytes Negative N Negative Urine Blood Negative N Negative * * Abnormal Negative 18 Urine Nitrite Negative N Negative Urine Bilirubin Negative N Negative Urine Glucose Negative N Negative Lipid Profile 06/12/2017 [facility] ([facility]) Cholesterol 132 mg/dL 120- 200 Triglycerides 90 mg/dL 30-200 HDL Cholesterol 45 mg/dL 30-70 LDL (Calculated) 69 CALC 0-129 VLDL Cholesterol 18 mg/dL 0-50 HDL Risk Factor 2.9 CALC 0.0-4.4 Laboratory test 06/12/2017 [facility] ([facility]) Vitamin D25 52 30-100 finding Comprehensive 05/24/2017 [place] ([facility]) Sodium 130 mEq/L Low 134- 149 19 Metabolic Prof Potassium 5.1 mEq/L 3.6-5.5 Chloride 89 mEq/L Low 94-112 20 Carbon Dioxide 34 mEq/L High 21-32 21 Glucose 228 mg/dL High 70-105 BUN 8 mg/dL 6-26 Creatinine 1.0 mg/dL 0.6-1.4 BUN/Creat Ratio 8.0 CALC 8.0-36.0 Calcium 8.9 mg/dL 8.6-10.2 Total Protein 6.7 g/dL 6.4-8.3 Albumin 3.0 g/dL Low 3.8-5.5 22 Globulin 3.7 g/dL 2.0-4.8 A/G Ratio 0.8 CALC 0.6-2.3 Alk. Phosphatase 55 U/L 22-95 Alt (SGPT) 15 U/L 7-35 Ast (Sgot) 25 U/L 5-34 Total Bilirubin 0.3 mg/dL 0.2-1.3 GFR Non- >60 ml/min/1.73m^ >=60 GFR >60 ml/min/1.73m^ >=60 Complete Blood Count 05/24/2017 [facility] (a) WBC 8.6 x10^3/UL 3.6-9.6 RBC 4.35 x10^6/UL 3.90-5.70 HGB 14.3 g/dL 12.1-17.2 HCT 42 % 36-50 MCV 97.0 fL 82.2-97.4 MCH 32.9 pg 27.6-33.3 MCHC 34.1 g/dL 33.0-35.5 RDW 14.3 % High 11.6-13.7 PLT 373 x10^3/UL 150-400 MPV 6.9 fL Low 7.4-10.4 Gran # 6.3 x10^3/UL 1.5-7.2 Lymph# 1.9 x10^3/UL 0.7-4.9 [place]# 0.4 x10^3/UL 0.1-0.9 Gran % 73.0 % 42.2-75.2 Lymph % 22.1 % 20.5-51.1 [place]% 4.9 % 1.7-9.3 Laboratory test 03/28/2017 [facility] Cologua see lab finding image Laboratory test 03/16/2017 [facility] PSA Screening 0.502 ng/mL N 0-4.0 23 finding Laboratory test 02/06/2017 [facility] TSH (Thyroid 6.27 High 0.34-5 finding Stim Horm) mcIU/mL .60 PSA Screening 6.759 ng/mL High 0-4.000 24 Free T4 (Free Thyroxine) 0.84 ng/dL N 0.61-1.12 Hepatitis B Surface Ag Nonreactive N Nonreactive Hepatitis B Rui AB 02/06/2017 [facility] Hepatitis B Surface Nonreactive N Nonreactive Titer AB Hep B Surf AB Level < 3.10 mIU/mL N <12 25 Laboratory test 02/06/2017 [facility] Hepatitis C Nonreactive N Nonreactive finding Antibody Varicella Zoster Igg 02/06/2017 [facility] Varicella-Zoster Positive N 26 AB IgG Antibody Varicella IgG Antibody Index 2.0 N 27 Laboratory test 02/06/2017 [facility] Varicella Zoster Negative N Negative 28 finding Igm AB Laboratory test 08/30/2016 [facility] Urine Culture And SEE RESULT 29 finding Sensitivities BELOW Laboratory test 07/26/2016 [facility] Levetiracetam 21.4 ug/mL 10.0-40.0 [address] ([place]), [place] [address] (607)- - Valproic Acid (Depakote)(R),S 100 ug/mL 50-100 31 Complete Blood Count 07/25/2016 [place] [facility] ([facility]) WBC 4.2 x10^3/UL 3.6-9.6 RBC 4.64 x10^6/UL 3.90-5.70 HGB 15.9 g/dL 12.1-17.2 HCT 46 % 36-50 MCV 99.0 fL High 82.2-97.4 32 MCH 34.3 pg High 27.6-33.3 MCHC 34.5 g/dL 33.0-35.5 RDW 14.4 % High 11.6-13.7 PLT 195 x10^3/UL 150-400 MPV 6.9 fL Low 7.4-10.4 Gran # 1.8 x10^3/UL 1.5-7.2 Lymph# 2.1 x10^3/UL 0.7-4.9 [place]# 0.3 x10^3/UL 0.1-0.9 Gran % 40.7 % Low 42.2-75.2 Lymph % 51.2 % High 20.5-51.1 [place]% 8.1 % 1.7-9.3 Laboratory test finding 07/25/2016 [facility] [facility] ([facility]) TSH 3.45 mIU/L 0.50-6.00 Free T4 1.01 ng/dL 0.75-1.54 Laboratory test 07/25/2016 [facility] Brain Natural 29.5 pg/mL < 100 finding (607)- - Peptide Urinalysis Profile 03/25/2016 [facility] Urine Color Yellow N Urine Appearance Clear N Urine Specific [place] 1.009 Low 1.010-1.030 Urine pH 7.0 N 5-9 Urine Urobilinogen Negative N Negative Urine Ketones Negative N Negative Urine Protein Negative N Negative Urine Leukocytes Negative N Negative Urine Blood Negative N Negative Urine Nitrite Negative N Negative Urine Bilirubin Negative N Negative Urine Glucose Negative N Negative CBC Electronic-ALL Lab 03/25/2016 [facility] White Blood Count 5.0 10^3/uL N 3.5 -10.8 33 Compani Red Blood Count 4.65 10^6/uL N 4.0-5.4 Hemoglobin 15.8 g/dL N 14.0-18.0 Hematocrit 47 % N 42-52 Mean Corpuscular Volume 100 fL High 80-94 Mean Corpuscular Hemoglobin 34 pg High 27-31 Mean Corpuscular HGB Conc 34 g/dL N 31-36 Red Cell Distribution Width 14 % N 10.5-15 Platelet Count 190 10^3/uL N 150-450 Mean Platelet Volume 9 um3 N 7.4-10.4 Abs Neutrophils 1.3 10^3/uL Low 1.5-7.7 Abs Lymphocytes 3.2 10^3/uL N 1.0-4.8 Abs Monocytes 0.5 10^3/uL N 0-0.8 Abs Eosinophils 0 10^3/uL N 0-0.6 Abs Basophils 0 10^3/uL N 0-0.2 Abs Nucleated RBC 0.01 10^3/uL N Granulocyte % 24.9 % Low 38-83 Lymphocyte % 64.2 % High 25-47 Monocyte % 9.4 % High 1-9 Eosinophil % 0.9 % N 0-6 Basophil % 0.6 % N 0-2 Nucleated Red Blood Cells % 0.3 N Laboratory test 03/25/2016 [facility] Levetiracetam (Keppra) 18.5 g/mL N 34 finding Comp Metabolic-ALL Lab 03/25/2016 [facility] Sodium 138 mmol/L N 133-145 [facility] Potassium 4.2 mmol/L N 3.5-5.0 Chloride 102 mmol/L N 101-111 Co2 Carbon Dioxide 33 mmol/L High 22-32 Anion Gap 3 mmol/L N 2-11 Glucose 89 mg/dL N 70-100 Blood Urea Nitrogen 15 mg/dL N 6-24 Creatinine 1.00 mg/dL N 0.67-1.17 BUN/Creatinine Ratio 15.0 N 8-20 Calcium 8.7 mg/dL N 8.6-10.3 Total Protein 6.8 g/dL N 6.4-8.9 Albumin 3.4 g/dL N 3.2-5.2 Globulin 3.4 g/dL N 2-4 Albumin/Globulin Ratio 1.0 N 1-3 Total Bilirubin 0.40 mg/dL N 0.2-1.0 Alkaline Phosphatase 52 U/L N 34-104 Alt 27 U/L N 7-52 Ast 30 U/L N 13-39 Egfr Non- 78.2 N >60 Egfr 100.5 N >60 35 Lipid Panel[facility] 03/25/2016 [facility] Triglycerides 91 mg/dL N 36 Cholesterol 158 mg/dL N 37 HDL Cholesterol 44.6 mg/dL N 38 LDL Cholesterol 95 mg/dL N 39 Laboratory test 03/25/2016 [facility] TSH (Thyroid Stim 6.85 mcIU/mL High 0.34- 5.60 40 finding Horm) Free T4 (Free Thyroxine) 0.89 ng/dL N 0.61-1.12 Laboratory test 03/25/2016 [facility] Valproic Acid 97.0 g/mL N 50-100 41 finding (Depakene) CBC Auto Diff 03/25/2016 [facility] White Blood Count 5.0 10^3/uL N 3.5-10.8 Red Blood Count 4.65 10^6/uL N 4.0-5.4 Hemoglobin 15.8 g/dL N 14.0-18.0 Hematocrit 47 % N 42-52 Mean Corpuscular Volume 100 fL High 80-94 Mean Corpuscular Hemoglobin 34 pg High 27-31 Mean Corpuscular HGB Conc 34 g/dL N 31-36 Red Cell Distribution Width 14 % N 10.5-15 Platelet Count 190 10^3/uL N 150-450 Mean Platelet Volume 9 um3 N 7.4-10.4 Abs Neutrophils 1.3 10^3/uL Low 1.5-7.7 Abs Lymphocytes 3.2 10^3/uL N 1.0-4.8 Abs Monocytes 0.5 10^3/uL N 0-0.8 Abs Eosinophils 0 10^3/uL N 0-0.6 Abs Basophils 0 10^3/uL N 0-0.2 Abs Nucleated RBC 0.01 10^3/uL N Granulocyte % 24.9 % Low 38-83 Lymphocyte % 64.2 % High 25-47 Monocyte % 9.4 % High 1-9 Eosinophil % 0.9 % N 0-6 Basophil % 0.6 % N 0-2 Nucleated Red Blood Cells % 0.3 N CBC Auto Diff 11/19/2015 [facility] White Blood Count 4.3 10^3/uL N 3.5-10.8 Red Blood Count 5.16 10^6/uL N 4.0-5.4 Hemoglobin 17.2 g/dL N 14.0-18.0 Hematocrit 52 % N 42-52 Mean Corpuscular Volume 101 fL High 80-94 Mean Corpuscular Hemoglobin 33 pg High 27-31 Mean Corpuscular HGB Conc 33 g/dL N 31-36 Red Cell Distribution Width 14 % N 10.5-15 Platelet Count 184 10^3/uL N 150-450 Mean Platelet Volume 9 um3 N 7.4-10.4 Abs Neutrophils 1.2 10^3/uL Low 1.5-7.7 Abs Lymphocytes 2.6 10^3/uL N 1.0-4.8 Abs Monocytes 0.4 10^3/uL N 0-0.8 Abs Eosinophils 0 10^3/uL N 0-0.6 Abs Basophils 0 10^3/uL N 0-0.2 Abs Nucleated RBC 0 10^3/uL N Granulocyte % 28.3 % Low 38-83 Lymphocyte % 61.5 % High 25-47 Monocyte % 8.8 % N 1-9 Eosinophil % 0.9 % N 0-6 Basophil % 0.5 % N 0-2 Nucleated Red Blood Cells % 0.1 N Comp Metabolic Panel 11/19/2015 [facility] Sodium 136 mmol/L N 133-145 Potassium 4.4 mmol/L N 3.5-5.0 Chloride 99 mmol/L Low 101-111 Co2 Carbon Dioxide 30 mmol/L N 22-32 Anion Gap 7 mmol/L N 2-11 Glucose 128 mg/dL High 70-100 Blood Urea Nitrogen 15 mg/dL N 6-24 Creatinine 1.08 mg/dL N 0.67-1.17 BUN/Creatinine Ratio 13.9 N 8-20 Calcium 9.2 mg/dL N 8.6-10.3 Total Protein 7.1 g/dL N 6.4-8.9 Albumin 3.8 g/dL N 3.2-5.2 Globulin 3.3 g/dL N 2-4 Albumin/Globulin Ratio 1.2 N 1-3 Total Bilirubin 0.50 mg/dL N 0.2-1.0 Alkaline Phosphatase 49 U/L N 34-104 Alt 29 U/L N 7-52 Ast 31 U/L N 13-39 Egfr Non- 71.5 N >60 Egfr 92.0 N >60 42 Laboratory test finding 11/19/2015 [facility] Valproic Acid 99.0 g/mL N 50- 100 (Depakene) Levetiracetam (Keppra) 19.4 g/mL N 43 Comp Metabolic Panel 10/08/2015 [facility] Sodium 135 mmol/L N 133-145 Chloride 98 mmol/L Low 101-111 Co2 Carbon Dioxide 29 mmol/L N 22-32 Glucose 107 mg/dL High 70-100 Blood Urea Nitrogen 15 mg/dL N 6-24 Creatinine 1.00 mg/dL N 0.67-1.17 BUN/Creatinine Ratio 15.0 N 8-20 Calcium 8.9 mg/dL N 8.6-10.3 Total Protein 7.2 g/dL N 6.4-8.9 Albumin 3.7 g/dL N 3.2-5.2 Globulin 3.5 g/dL N 2-4 Albumin/Globulin Ratio 1.1 N 1-3 Total Bilirubin 0.50 mg/dL N 0.2-1.0 Alkaline Phosphatase 55 U/L N 34-104 Alt 18 U/L N 7-52 Egfr Non- 78.2 N >60 Egfr 100.5 N >60 44 Potassium 4.6 mmol/L N 3.5-5.0 Anion Gap 8 mmol/L N 2-11 Ast 28 U/L N 13-39 Laboratory test finding 10/08/2015 [facility] Valproic Acid 86.0 g/mL N 50- 100 (Depakene) Levetiracetam (Keppra) 17.0 g/mL N 45 Comp Metabolic Panel 08/24/2015 [facility] Sodium 136 mmol/L N 133-145 Potassium 4.6 mmol/L N 3.5-5.0 Chloride 98 mmol/L Low 101-111 Co2 Carbon Dioxide 34 mmol/L High 22-32 Anion Gap 4 mmol/L N 2-11 Glucose 117 mg/dL High 70-100 Blood Urea Nitrogen 15 mg/dL N 6-24 Creatinine 1.12 mg/dL N 0.67-1.17 BUN/Creatinine Ratio 13.4 N 8-20 Calcium 9.0 mg/dL N 8.6-10.3 Total Protein 6.7 g/dL N 6.4-8.9 Albumin 3.4 g/dL N 3.2-5.2 Globulin 3.3 g/dL N 2-4 Albumin/Globulin Ratio 1.0 N 1-3 Total Bilirubin 0.40 mg/dL N 0.2-1.0 Alkaline Phosphatase 44 U/L N 34-104 Alt 19 U/L N 7-52 Ast 27 U/L N 13-39 Egfr Non- 68.6 N >60 Egfr 88.2 N >60 46 Laboratory test finding 08/24/2015 [facility] Valproic Acid 94.0 g/mL N 50- 100 CBC Auto Diff 08/24/2015 [facility] White Blood Count 5.0 10^3/uL N 3.5-10.8 Red Blood Count 4.92 10^6/uL N 4.0-5.4 Hemoglobin 16.3 g/dL N 14.0-18.0 Hematocrit 50 % N 42-52 Mean Corpuscular Volume 102 fL High 80-94 Mean Corpuscular Hemoglobin 33 pg High 27-31 Mean Corpuscular HGB Conc 33 g/dL N 31-36 Red Cell Distribution Width 14 % N 10.5-15 Abs Neutrophils 1.9 10^3/uL N 1.5-7.7 Abs Lymphocytes 2.6 10^3/uL N 1.0-4.8 Abs Monocytes 0.5 10^3/uL N 0-0.8 Abs Eosinophils 0 10^3/uL N 0-0.6 Abs Basophils 0 10^3/uL N 0-0.2 Abs Nucleated RBC 0 10^3/uL N Granulocyte % 37.5 % Low 38-83 Lymphocyte % 51.7 % High 25-47 Monocyte % 9.3 % High 1-9 Eosinophil % 0.9 % N 0-6 Basophil % 0.6 % N 0-2 Nucleated Red Blood Cells % 0.1 N Platelet Count 263 10^3/uL N 150-450 47 Mean Platelet Volume 9 um3 N 7.4-10.4 Laboratory test 08/24/2015 [facility] Levetiracetam 18.9 g/mL N 48 finding Comprehensive 05/05/2015 [facility] ([facility]ma) Sodium 138 mEq/L 134-149 Metabolic Prof Potassium 4.4 mEq/L 3.6-5.5 Chloride 98 mEq/L 94-112 Carbon Dioxide 30 mEq/L 21-32 Glucose 131 mg/dL High 70-105 49 BUN 19 mg/dL 6-26 Creatinine 1.1 mg/dL 0.6-1.4 BUN/Creat Ratio 17.3 CALC 8.0-36.0 Calcium 9.3 mg/dL 8.6-10.2 Total Protein 7.2 g/dL 6.4-8.3 Albumin 3.9 g/dL 3.8-5.5 Globulin 3.3 g/dL 2.0-4.8 A/G Ratio 1.2 CALC 0.6-2.3 Alk. Phosphatase 46 U/L 22-95 Alt (SGPT) 55 U/L High 7-35 50 Ast (Sgot) 52 U/L High 5-34 51 Total Bilirubin 0.4 mg/dL 0.2-1.3 GFR Non- >60 ml/min/1.73m^ >=60 GFR >60 ml/min/1.73m^ >=60 Complete Blood Count 05/05/2015 [facility] (a) WBC 4.3 x10^3/UL 3.6-9.6 RBC 4.72 x10^6/UL 3.90-5.70 HGB 16.1 g/dL 12.1-17.2 HCT 47 % 36-50 MCV 100.0 fL High 82.2-97.4 52 MCH 34.1 pg High 27.6-33.3 53 MCHC 34.0 g/dL 33.0-35.5 RDW 15.1 % High 11.6-13.7 PLT 189 x10^3/UL 150-400 MPV 7.1 fL Low 7.4-10.4 Gran # 2.0 x10^3/UL 1.5-7.2 Lymph# 2.1 x10^3/UL 0.7-4.9 [place]# 0.2 x10^3/UL 0.1-0.9 Gran % 44.0 % 42.2-75.2 Lymph % 50.5 % 20.5-51.1 [place]% 5.5 % 1.7-9.3 Laboratory test 05/05/2015 [facility] Valproic Acid 74 ug/mL 50-100 54, 55 finding [id number] [facility] (Depakote)(R),[place] [address] (607)- - Levetiracetam (Keppra), S 17.1 ug/mL 10.0-40.0 Ua - Micro (Fma) 04/21/2015 [facility] Appearance clear (607)- - Color yellow Glucose, Urine ([facility]ma/[facility]/CTX) neg Bilirubin neg Ketones neg SP Grav 1.015 Blood neg PH 7.5 Protein neg Urobil 0.2 Nitrite neg Leukocytes (Fma/[facility]/Centrex) neg Hyaline - /Lpf Granular - /Lpf WBC (Fma,Centrex) 0-1. # RBC - Mucus - /Lpf Epith - /Lpf Bacteria - /Hpf Amorphous - /Lpf Crystals, Fluid (Fma/[facility]/CTX) - Z#Comments - CBC Auto Diff 04/17/2015 [facility] White Blood Count 3.6 10^3/uL Low 4.8-10.8 Red Blood Count 4.84 10^6/uL N 4.0-5.4 Hemoglobin 15.7 g/dL N 14.0-18.0 Hematocrit 49 % N 42-52 Mean Corpuscular Volume 100 fL High 80-94 Mean Corpuscular Hemoglobin 32 pg High 27-31 Mean Corpuscular HGB Conc 32 g/dL N 31-36 Red Cell Distribution Width 15 % N 10.5-15 Platelet Count 181 10^3/uL N 150-450 Mean Platelet Volume 8 um3 N 7.4-10.4 Abs Neutrophils 1.2 10^3/uL Low 1.5-7.7 Abs Lymphocytes 1.9 10^3/uL N 1.0-4.8 Abs Monocytes 0.4 10^3/uL N 0-0.8 Abs Eosinophils 0.1 10^3/uL N 0-0.6 Abs Basophils 0.1 10^3/uL N 0-0.2 Abs Nucleated RBC 0.01 10^3/uL N Granulocyte % 32.3 % Low 38-83 Lymphocyte % 54.1 % High 25-47 Monocyte % 10.4 % High 1-9 Eosinophil % 1.4 % N 0-6 Basophil % 1.8 % N 0-2 Nucleated Red Blood Cells % 0.1 N Comp Metabolic Panel 04/17/2015 [facility] Sodium 135 mmol/L N 133-145 Potassium 4.1 mmol/L N 3.5-5.0 Chloride 98 mmol/L Low 101-111 Co2 Carbon Dioxide 35 mmol/L High 22-32 Anion Gap 2 mmol/L N 2-11 Glucose 106 mg/dL High 70-100 Blood Urea Nitrogen 17 mg/dL N 6-24 Creatinine 1.20 mg/dL High 0.67-1.17 BUN/Creatinine Ratio 14.2 N 8-20 Calcium 8.9 mg/dL N 8.6-10.3 Total Protein 6.8 g/dL N 6.4-8.9 Albumin 3.6 g/dL N 3.2-5.2 Globulin 3.2 g/dL N 2-4 Albumin/Globulin Ratio 1.1 N 1-3 Total Bilirubin 0.40 mg/dL N 0.2-1.0 Alkaline Phosphatase 43 U/L N 34-104 Alt 44 U/L N 7-52 Ast 41 U/L High 13-39 Egfr Non- 63.6 N >60 Egfr 81.8 N >60 56 Laboratory test finding 04/17/2015 [facility] Valproic Acid 83.0 g/mL N 50- 100 Comp Metabolic Panel 04/02/2015 [facility] Sodium 136 mmol/L N 133-145 Potassium 4.0 mmol/L N 3.5-5.0 Chloride 98 mmol/L Low 101-111 Co2 Carbon Dioxide 33 mmol/L High 22-32 Anion Gap 5 mmol/L N 2-11 Glucose 71 mg/dL N 70-100 Blood Urea Nitrogen 16 mg/dL N 6-24 Creatinine 1.04 mg/dL N 0.67-1.17 BUN/Creatinine Ratio 15.4 N 8-20 Calcium 8.9 mg/dL N 8.6-10.3 Total Protein 6.8 g/dL N 6.4-8.9 Albumin 3.7 g/dL N 3.2-5.2 Globulin 3.1 g/dL N 2-4 Albumin/Globulin Ratio 1.2 N 1-3 Total Bilirubin 0.50 mg/dL N 0.2-1.0 Alkaline Phosphatase 43 U/L N 34-104 Alt 41 U/L N 7-52 Ast 40 U/L High 13-39 Egfr Non- 75.0 N >60 Egfr 96.4 N >60 57 Lipid Profile (Trig/Chol/HDL) 04/02/2015 [facility] Triglycerides 82 mg/dL N 58 Cholesterol 143 mg/dL N 59 HDL Cholesterol 42.6 mg/dL N 60 LDL Cholesterol 84 mg/dL N 61 Laboratory test finding 04/02/2015 [facility] Valproic Acid 114.0 g/mL High 50 -100 TSH (Thyroid Stim Horm) 4.57 ?IU/mL N 0.34-5.60 Free T4 (Free Thyroxine) 0.81 ng/mL N 0.61-1.12 Laboratory test finding 02/12/2015 [facility] Hemoglobin A1c 6.4 % High Less than 6.0 62 Valproic Acid 70.0 g/mL N 50-100 Comp Metabolic-ALL Lab [facility]ani 02/12/2015 [facility] Sodium 137 mmol/L N 133- 145 Potassium 4.5 mmol/L N 3.5-5.0 Chloride 101 mmol/L N 101-111 Co2 Carbon Dioxide 30 mmol/L N 22-32 Anion Gap 6 mmol/L N 2-11 Glucose 112 mg/dL High 70-100 Blood Urea Nitrogen 16 mg/dL N 6-24 Creatinine 1.05 mg/dL N 0.67-1.17 BUN/Creatinine Ratio 15.2 N 8-20 Calcium 8.9 mg/dL N 8.6-10.3 Total Protein 7.2 g/dL N 6.4-8.9 Albumin 3.7 g/dL N 3.2-5.2 Globulin 3.5 g/dL N 2-4 Albumin/Globulin Ratio 1.1 N 1-3 Total Bilirubin 0.30 mg/dL N 0.2-1.0 Alkaline Phosphatase 51 U/L N 34-104 Alt 22 U/L N 7-52 Ast 24 U/L N 13-39 Egfr Non- 74.2 N >60 Egfr 95.4 N >60 63 CBC Auto Diff 01/05/2015 [facility] White Blood Count 5.6 10^3/uL N 4.8-10.8 Red Blood Count 5.02 10^6/uL N 4.0-5.4 Hemoglobin 16.6 g/dL N 14.0-18.0 Hematocrit 49 % N 42-52 Mean Corpuscular Volume 97 fL High 80-94 Mean Corpuscular Hemoglobin 33 pg High 27-31 Mean Corpuscular HGB Conc 34 g/dL N 31-36 Red Cell Distribution Width 13 % N 10.5-15 Platelet Count 230 10^3/uL N 150-450 Mean Platelet Volume 8 um3 N 7.4-10.4 Abs Neutrophils 2.6 10^3/uL N 1.5-7.7 Abs Lymphocytes 2.4 10^3/uL N 1.0-4.8 Abs Monocytes 0.5 10^3/uL N 0-0.8 Abs Eosinophils 0.1 10^3/uL N 0-0.6 Abs Basophils 0 10^3/uL N 0-0.2 Abs Nucleated RBC 0 10^3/uL N Granulocyte % 46.6 % N 38-83 Lymphocyte % 42.5 % N 25-47 Monocyte % 9.0 % N 1-9 Eosinophil % 1.4 % N 0-6 Basophil % 0.5 % N 0-2 Nucleated Red Blood Cells % 0 N Laboratory test finding 01/05/2015 [facility] Lactic Acid 0.9 mmol/L N 0.5-2.2 Inr/Protime 01/05/2015 [facility] Inr 0.98 N 0.78-1.07 Comp Metabolic Panel 01/05/2015 [facility] Sodium 135 mmol/L N 133-145 Chloride 100 mmol/L Low 101-111 Co2 Carbon Dioxide 31 mmol/L N 22-32 Glucose 98 mg/dL N 70-100 Blood Urea Nitrogen 20 mg/dL N 6-24 Creatinine 1.27 mg/dL High 0.67-1.17 BUN/Creatinine Ratio 15.7 N 8-20 Calcium 9.3 mg/dL N 8.6-10.3 Total Protein 7.8 g/dL N 6.4-8.9 Albumin 4.2 g/dL N 3.2-5.2 Globulin 3.6 g/dL N 2-4 Albumin/Globulin Ratio 1.2 N 1-3 Total Bilirubin 0.50 mg/dL N 0.2-1.0 Alkaline Phosphatase 46 U/L N 34-104 Alt 40 U/L N 7-52 Egfr Non- 59.6 N >60 Egfr 76.6 N >60 64 Potassium TNP mmol/L N 3.5-5.0 65 Anion Gap TNP mmol/L N 2-11 Ast TNP U/L N 13-39 66 Laboratory test finding 01/05/2015 [facility] Troponin I 0.01 ng/mL N <0.03 67 Magnesium TNP mg/dL N 1.9-2.7 68 TSH (Thyroid Stimulating Horm) 5.37 ?IU/mL N 0.34-5.60 Urinalysis Profile 01/05/2015 [facility] Urine Color Straw N Urine Appearance Clear N Urine Specific [place] 1.010 N 1.010-1.030 Urine pH 7.0 N 5-9 Urine Urobilinogen Negative N Negative Urine Ketones Negative N Negative Urine Protein Negative N Negative Urine Leukocytes Negative N Negative Urine Blood Negative N Negative Urine Nitrite Negative N Negative Urine Bilirubin Negative N Negative Urine Glucose Negative N Negative Laboratory test finding 01/05/2015 [facility] Magnesium 2.2 mg/dL N 1.9-2.7 Laboratory test finding 01/05/2015 [facility] Magnesium 2.2 mg/dL N 1.9-2.7 Unknown Test 10 32 U/L N 13-39 Unknown Test 1 3.9 mmol/L N 3.5-5.0 Comp Metabolic Panel 09/09/2014 [facility] Sodium 136 mmol/L N 133-145 Potassium 4.5 mmol/L N 3.5-5.0 Chloride 103 mmol/L N 101-111 Co2 Carbon Dioxide 31 mmol/L N 22-32 Anion Gap 2 mmol/L N 2-11 Glucose 92 mg/dL N 70-100 Blood Urea Nitrogen 15 mg/dL N 6-24 Creatinine 1.08 mg/dL N 0.67-1.17 BUN/Creatinine Ratio 13.9 N 8-20 Calcium 9.0 mg/dL N 8.6-10.3 Total Protein 6.4 g/dL N 6.4-8.9 Albumin 3.6 g/dL N 3.2-5.2 Globulin 2.8 g/dL N 2-4 Albumin/Globulin Ratio 1.3 N 1-3 Total Bilirubin 0.60 mg/dL N 0.2-1.0 Alkaline Phosphatase 51 U/L N 34-104 Alt 49 U/L N 7-52 Ast 29 U/L N 13-39 Egfr Non- 71.8 N >60 Egfr 92.3 N >60 69 Lipid Profile (Trig/Chol/HDL) 09/09/2014 [facility] Triglycerides 79 mg/dL N 70 Cholesterol 131 mg/dL N 71 HDL Cholesterol 38.2 mg/dL N 72 LDL Cholesterol 77 mg/dL N 73 Laboratory test finding 09/09/2014 [facility] Free T4 0.90 ng/mL N 0.61-1.12 TSH (Thyroid Stimulating Horm) 4.26 IU/mL N 0.34-5.60 1 *Ascorbic acid is present which may interfere with detection of blood. 2 SEE RESULT BELOW Name: TK JI : [address]: Gogo Pimentel NP Acct: [id number] Unit: [id number] AGE: 58 Location: [facility] Re10/18/18 SEX: M Status: REG REF SPEC: [id number] NONI: 10/18/18-[address]: Gogo Pimentel NP REQ: [id number] RECD: 10/18/18 STATUS: COMP _ SOURCE: URINE SPDESC: ORDERED: Urine Culture QUERIES: Urine Source: Random Procedure Result Reported Site Urine Culture Final 10/20/18- 822 ML No Growth (<1,000 CFU/mL) * ML - [facility] . END OF REPORT DEPARTMENT OF PATHOLOGY, [address] [place] [id number] Ashok Estrada M.D. Director [facility] # [id number] 3 RESULTS VERIFIED BY REPEAT ANALYSIS 4 FASTING 5 1POUR OFF SERUM [id number] REFERENCE VALUE 12.0 - 46.0 ADDITIONAL INFORMATION This test was developed and its performance characteristics determined by [facility] in a manner consistent with CLIA requirements. This test has not been cleared or approved by the U.S. Food and Drug Administration. Test Performed by: [facility] - [address] [address] 7 Because ethnic data is not always readily available, this report includes an eGFR for both -Americans and non- Americans. The National Kidney Disease Education Program (NKDEP) does not endorse the use of the MDRD equation for patients that are not between the ages of 18 and 70, are , have extremes of body size, muscle mass, or nutritional status, or are non- or non-. According to the National Kidney Foundation, irrespective of diagnosis, the stage of the disease is based on the level of kidney function: Stage Description GFR(mL/min/1.73 m(2)) 1 Kidney damage with normal or decreased GFR 90 2 Kidney damage with mild decrease in GFR 60-89 3 Moderate decrease in GFR 30-59 4 Severe decrease in GFR 15-29 5 Kidney failure <15 (or dialysis) 8 REFERENCE VALUE 12.0 - 46.0 ADDITIONAL INFORMATION This test was developed and its performance characteristics determined by [facility] in a manner consistent with CLIA requirements. This test has not been cleared or approved by the U.S. Food and Drug Administration. Test Performed by: [facility] [place] [facility] [address] [place] [address] 9 [facility] Severe Sepsis and Septic Shock Management Bundle Measure requires all lactic acids initially measuring >2.0 mmol/L be repeated. 10 SEE RESULT BELOW Name: TK JI : [address]: Phani Stallworth MD Acct: [id number] Unit: [id number] AGE: 56 Location: ED Re06/13/17 SEX: M Status: REG ER SPEC: [id number] NONI: 06/13/[address] [facility] [address]: Phani Stallworth MD REQ: [id number] RECD: 06/13/17 STATUS: CHENTE BRONSON DR: Bhaskar Lewis MD _ SOURCE: BLOOD,VENO SPDESC: ORDERED: Blood Cult Procedure Result Reported Site Aerobic Culture Bottle Final 06/18/17- 1515 ML No Growth Day 5 Anaerobic Culture Bottle Final 06/18/17- 1515 ML No Growth Day 5 * ML - MAIN LAB ([facility]) . END OF REPORT * ML=Testing performed at Main Lab DEPARTMENT OF PATHOLOGY, [address] [place] [address] Ashok Estrada M.D. Director [facility] # [id number] 11 Acute inflammation: >10.00 12 >100 to <200 pg/mL: likely compensated congestive heart failure (CHF) 200 to 400 pg/mL: likely moderate CHF >400 pg/mL: likely moderate to severe CHF 13 Because ethnic data is not always readily available, this report includes an eGFR for both -Americans and non- Americans. The National Kidney Disease Education Program (NKDEP) does not endorse the use of the MDRD equation for patients that are not between the ages of 18 and 70, are , have extremes of body size, muscle mass, or nutritional status, or are non- or non-. According to the National Kidney Foundation, irrespective of diagnosis, the stage of the disease is based on the level of kidney function: Stage Description GFR(mL/min/1.73 m(2)) 1 Kidney damage with normal or decreased GFR 90 2 Kidney damage with mild decrease in GFR 60-89 3 Moderate decrease in GFR 30-59 4 Severe decrease in GFR 15-29 5 Kidney failure <15 (or dialysis) 14 Manager Animal: [id number] 15 SEE RESULT BELOW Name: TK JI : [address]: Phani Stallworth MD Acct: [id number] Unit: [id number] AGE: 56 Location: ED Re06/13/17 SEX: M Status: REG ER SPEC: [id number] NONI: 06/13/[address] [facility] [address]: Phani Stallworth MD REQ: [id number] RECD: 06/13/17 STATUS: COMP OTHR DR: Bhaskar Lewis MD _ SOURCE: THROAT SPDESC: ORDERED: Strep A Request Procedure Result Reported Site Rapid Strep A Request Final 06/13/17- 1642 ML Specimen received for Rapid Strep A Molecular testing * ML - MAIN LAB ([facility]) . END OF REPORT * ML=Testing performed at Main Lab DEPARTMENT OF PATHOLOGY, [address] [place] [address] Ashok Estrada M.D. Director [facility] # [id number] 16 SEE RESULT BELOW Name: TK JI : [address]: Phani Stallworth MD Acct: [id number] Unit: [id number] AGE: 56 Location: ED Re06/13/17 SEX: M Status: REG ER SPEC: [id number] NONI: 06/13/[address]: Phani Stallworth MD REQ: [id number] RECD: 06/13/17 STATUS: CHENTE BRONSON DR: Bhaskar Lewis MD _ SOURCE: [facility]: ORDERED: Flu A B Request Procedure Result Reported Site Rapid Influenza A B Request Final 06/13/171644 ML Specimen received for Influenza A/B Molecular testing * ML - [facility] LAB ([facility]) . END OF REPORT * ML=Testing performed at Main Lab DEPARTMENT OF PATHOLOGY, [address] [place] [address] Ashok Estrada M.D. Director [facility] # [id number] 17 Manager Animal: [id number] *Ascorbic acid is present which may interfere with detection of blood. 19 RESULTS VERIFIED BY REPEAT ANALYSIS 20 RESULTS VERIFIED BY REPEAT ANALYSIS 21 RESULTS VERIFIED BY REPEAT ANALYSIS 22 RESULTS VERIFIED BY REPEAT ANALYSIS 23 Serum levels of PSA measured using the [employer] [place] DXI Hybritech immunoassay should not be interpreted as absolute evidence of the presence or absence of disease. The PSA value should be used in conjunction with other pertinent clinical diagnostic procedures. A PSA value in the range of 0.1 to 0.6 ng/ml is indeterminate if being used as an indicator of recurrent or residual disease. The values obtained with different assay methods or kits cannot be used interchangeably. 24 Serum levels of PSA measured using the [place] [place] DXI Hybritech immunoassay should not be interpreted as absolute evidence of the presence or absence of disease. The PSA value should be used in conjunction with other pertinent clinical diagnostic procedures. The values obtained with different assay methods or kits cannot be used interchangeably. 25 This assay does not differentiate between reactivity due to a vaccine-induced immune response or an immune response induced by infection with HBV. 26 Results suggest response to immunization or prior exposure to the virus. REFERENCE VALUE Vaccinated: Positive (>=1.1 AI) Unvaccinated: Negative (<=0.8 AI) 27 Test Performed by: [place] [address] 28 Test Performed by: [place] [address] 29 SEE RESULT BELOW Name: JITK : [address]: Bhaskar Lewis MD Acct: [id number] Unit: [id number] AGE: 56 [facility] SEX: M Status: REG REF SPEC: [id number] NONI: 08/30/16-[address]: Bhaskar Lewis MD REQ: [id number] RECD: 08/30/16 STATUS: COMP _ SOURCE: URINE SPDESC: ORDERED: Urine Culture Urine Source: Clean Catch Procedure Result Reported Site Urine Culture Final 08/31/16- 1632 ML No Growth (<1,000 CFU/mL) * ML - MAIN LAB ([facility]) . END OF REPORT * ML=Testing performed at Main Lab DEPARTMENT OF PATHOLOGY, [address] [place] [address] Ashok Estrada M.D. Director [facility] # [id number] 30 1POUR OFF SERUM 31 Detection Limit=4 <4 indicates None Detected Toxicity may occur at levels of 100-500. Measurements of free unbound valproic acid may improve the assess- ment of clinical response. 32 consistent w/ previous results 33 [id number] REFERENCE VALUE 12.0 - 46.0 Test Performed by: [place] [address] Engineering Group Manager: Sy Arrington II, M.D., Ph.D. 35 Because ethnic data is not always readily available, this report includes an eGFR for both -Americans and non- Americans. The National Kidney Disease Education Program (NKDEP) does not endorse the use of the MDRD equation for patients that are not between the ages of 18 and 70, are , have extremes of body size, muscle mass, or nutritional status, or are non- or non-. According to the National Kidney Foundation, irrespective of diagnosis, the stage of the disease is based on the level of kidney function: Stage Description GFR(mL/min/1.73 m(2)) 1 Kidney damage with normal or decreased GFR 90 2 Kidney damage with mild decrease in GFR 60-89 3 Moderate decrease in GFR 30-59 4 Severe decrease in GFR 15-29 5 Kidney failure <15 (or dialysis) 36 Desirable <150 Borderline high 150-199 High 200-499 Very High >500 37 Desirable <200 Borderline high 200-239 High >239 38 Low <40 Desirable: 40-60 High: >60 39 Desirable: <100 mg/dL Near Optimal: 100-129 mg/dL Borderline High: 130-159 mg/dL High: 160-189 mg/dL Very High: >189 mg/dL 40 [id number] 42 Because ethnic data is not always readily available, this report includes an eGFR for both -Americans and non- Americans. The National Kidney Disease Education Program (NKDEP) does not endorse the use of the MDRD equation for patients that are not between the ages of 18 and 70, are , have extremes of body size, muscle mass, or nutritional status, or are non- or non-. According to the National [employer], irrespective of diagnosis, the stage of the disease is based on the level of kidney function: Stage Description GFR(mL/min/1.73 m(2)) 1 Kidney damage with normal or decreased GFR 90 2 Kidney damage with mild decrease in GFR 60-89 3 Moderate decrease in GFR 30-59 4 Severe decrease in GFR 15-29 5 Kidney failure <15 (or dialysis) 43 REFERENCE VALUE 12.0 - 46.0 Test Performed by: [place] [address] Engineering Group Manager: Sy Arrington II, M.D., Ph.D. 44 Because ethnic data is not always readily available, this report includes an eGFR for both -Americans and non- Americans. The National Kidney Disease Education Program (NKDEP) does not endorse the use of the MDRD equation for patients that are not between the ages of 18 and 70, are , have extremes of body size, muscle mass, or nutritional status, or are non- or non-. According to the National [employer], irrespective of diagnosis, the stage of the disease is based on the level of kidney function: Stage Description GFR(mL/min/1.73 m(2)) 1 Kidney damage with normal or decreased GFR 90 2 Kidney damage with mild decrease in GFR 60-89 3 Moderate decrease in GFR 30-59 4 Severe decrease in GFR 15-29 5 Kidney failure <15 (or dialysis) 45 REFERENCE VALUE 12.0 - 46.0 Test Performed by: [place] [address] Engineering Group Manager: Sy Arrington II, M.D., Ph.D. 46 Because ethnic data is not always readily available, this report includes an eGFR for both -Americans and non- Americans. The National Kidney Disease Education Program (NKDEP) does not endorse the use of the MDRD equation for patients that are not between the ages of 18 and 70, are , have extremes of body size, muscle mass, or nutritional status, or are non- or non-. According to the National Kidney Foundation, irrespective of diagnosis, the stage of the disease is based on the level of kidney function: Stage Description GFR(mL/min/1.73 m(2)) 1 Kidney damage with normal or decreased GFR 90 2 Kidney damage with mild decrease in GFR 60-89 3 Moderate decrease in GFR 30-59 4 Severe decrease in GFR 15-29 5 Kidney failure <15 (or dialysis) 47 Platelet count confirmed by smear estimate. 48 REFERENCE VALUE 12.0 - 46.0 Test Performed by: [facility] [place] [address] [address] Engineering Group Manager: Ginny De La Vega, Ph.D. 49 NON-FASTING 50 RESULTS VERIFIED BY REPEAT ANALYSIS 51 RESULTS VERIFIED BY REPEAT ANALYSIS 52 RESULTS VERIFIED BY REPEAT ANALYSIS 53 RESULTS VERIFIED BY REPEAT ANALYSIS 54 1pour off serum from red t op 55 Detection Limit=4 <4 indicates None Detected Toxicity may occur at levels of 100-500. Measurements of free unbound valproic acid may improve the assess- ment of clinical response. 56 Because ethnic data is not always readily available, this report includes an eGFR for both -Americans and non- Americans. The National Kidney Disease Education Program (NKDEP) does not endorse the use of the MDRD equation for patients that are not between the ages of 18 and 70, are , have extremes of body size, muscle mass, or nutritional status, or are non- or non-. According to the National Kidney Foundation, irrespective of diagnosis, the stage of the disease is based on the level of kidney function: Stage Description GFR(mL/min/1.73 m(2)) 1 Kidney damage with normal or decreased GFR 90 2 Kidney damage with mild decrease in GFR 60-89 3 Moderate decrease in GFR 30-59 4 Severe decrease in GFR 15-29 5 Kidney failure <15 (or dialysis) 57 Because ethnic data is not always readily available, this report includes an eGFR for both -Americans and non- Americans. The National Kidney Disease Education Program (NKDEP) does not endorse the use of the MDRD equation for patients that are not between the ages of 18 and 70, are , have extremes of body size, muscle mass, or nutritional status, or are non- or non-. According to the National Kidney Foundation, irrespective of diagnosis, the stage of the disease is based on the level of kidney function: Stage Description GFR(mL/min/1.73 m(2)) 1 Kidney damage with normal or decreased GFR 90 2 Kidney damage with mild decrease in GFR 60-89 3 Moderate decrease in GFR 30-59 4 Severe decrease in GFR 15-29 5 Kidney failure <15 (or dialysis) 58 Desirable <150 Borderline high 150-199 High 200-499 Very High >500 59 Desirable <200 Borderline high 200-239 High >239 60 Low <40 Desirable: 40-60 High: >60 61 Desirable: <100 mg/dL Near Optimal: 100-129 mg/dL Borderline High: 130-159 mg/dL High: 160-189 mg/dL Very High: >189 mg/dL 62 Therapeutic target for the treatment of diabetes Mellitus patients is <7% HBA1C, and in selective patients <6.0%.Please refer to [place] Diabetes Association Diabetic care guidelines for further information. 63 Because ethnic data is not always readily available, this report includes an eGFR for both -Americans and non- Americans. The National Kidney Disease Education Program (NKDEP) does not endorse the use of the MDRD equation for patients that are not between the ages of 18 and 70, are , have extremes of body size, muscle mass, or nutritional status, or are non- or non-. According to the National Kidney Foundation, irrespective of diagnosis, the stage of the disease is based on the level of kidney function: Stage Description GFR(mL/min/1.73 m(2)) 1 Kidney damage with normal or decreased GFR 90 2 Kidney damage with mild decrease in GFR 60-89 3 Moderate decrease in GFR 30-59 4 Severe decrease in GFR 15-29 5 Kidney failure <15 (or dialysis) 64 Because ethnic data is not always readily available, this report includes an eGFR for both -Americans and non- Americans. The National Kidney Disease Education Program (NKDEP) does not endorse the use of the MDRD equation for patients that are not between the ages of 18 and 70, are , have extremes of body size, muscle mass, or nutritional status, or are non- or non-. According to the National Kidney Foundation, irrespective of diagnosis, the stage of the disease is based on the level of kidney function: Stage Description GFR(mL/min/1.73 m(2)) 1 Kidney damage with normal or decreased GFR 90 2 Kidney damage with mild decrease in GFR 60-89 3 Moderate decrease in GFR 30-59 4 Severe decrease in GFR 15-29 5 Kidney failure <15 (or dialysis) 65 Unable to report test result due to hemolysis. 66 Unable to report test result due to hemolysis. 67 Reference Range and Interpretation: TnI (ng/mL) Interpretation Less Than 0.03 ng/mL Not supportive of diagnosis of [place] 0.03 - 0.50 ng/mL Indeterminate: suggest serial studies if clinically indicated. Greater than 0.5 ng/mL Consistent with diagnosis of [place] 68 Unable to report test result due to hemolysis. 69 Because ethnic data is not always readily available, this report includes an eGFR for both -Americans and non- Americans. The National Kidney Disease Education Program (NKDEP) does not endorse the use of the MDRD equation for patients that are not between the ages of 18 and 70, are , have extremes of body size, muscle mass, or nutritional status, or are non- or non-. According to the National Kidney Foundation, irrespective of diagnosis, the stage of the disease is based on the level of kidney function: Stage Description GFR(mL/min/1.73 m(2)) 1 Kidney damage with normal or decreased GFR 90 2 Kidney damage with mild decrease in GFR 60-89 3 Moderate decrease in GFR 30-59 4 Severe decrease in GFR 15-29 5 Kidney failure <15 (or dialysis) 70 Desirable <150 Borderline high 150-199 High 200-499 Very High >500 71 Desirable <200 Borderline high 200-239 High >239 72 Low <40 Desirable: 40-60 High: >60 73 Desirable <100 Near Optimal 100-129 Borderline high 130-159 High 160-189 Very High >189 Procedures Date Code Description Status 05/26/2017 83797 Pulse Oximetry Completed Encounters Type Date Location Provider Dx Diagnosis Office Visit 06/13/2018 Main Office Cris Bhakta90.9 Down syndrome , 10:20a M.Janene unspecified Z00.00 Encntr for general adult medical exam w/o abnormal findings E55.9 Vitamin D deficiency, unspecified E78.49 Other hyperlipidemia E03.9 Hypothyroidism, unspecified G40.A09 Absence epileptic syndrome, not intractable, w/o stat epi Z23 Encounter for immunization Office Visit 04/11/2018 10:30a Main Office Coco Palmer S80.211D Abrasion, right [place], 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 knee, subsequent encounter W01.198A Fall same lev from slip/trip w strike agnst oth object, init Office Visit 08/01/2017 [facility] Bhaskar Freed H10.89 Other conjunctivitis 10:00a Office Ferny Lewis Office Visit 06/12/2017 Main Office Bhaskar Freed Q90.9 Down syndrome, 9:20a Ferny Lewis unspecified Z00.00 Encntr for general adult medical exam w/o abnormal findings G40.A09 Absence epileptic syndrome, not intractable, w/o stat epi E55.9 Vitamin D deficiency, unspecified E78.4 Other hyperlipidemia Office Visit 06/01/2017 3:00p [facility] Jcarlos Zamora 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 unspecified organism Office Visit 05/24/2017 1:00p [facility] Tee Garber PneumoniaDora M.D. unspecified organism E78.4 Other hyperlipidemia Office Visit 01/27/2017 10:00a Main Office Bhaskar Freed Q90.9 Down syndromeJoshua M.D. unspecified G40.A09 Absence epileptic syndrome, not intractable, w/o stat epi Office Visit 12/30/2016 3:00p Main Office Bhaskar Freed J06.9 Acute upper Ferny Lewis respiratory infection, unspecified Office Visit 07/25/2016 10:00a Main Office Bhaskar Freed Q90.9 Down syndromeJoshua M.D. unspecified G40.A09 Absence epileptic syndrome, not intractable, w/o stat epi R63.5 Abnormal weight gain R06.02 Shortness of breath Office Visit 01/04/2016 8:20a Main Office Bhaskar [place].9 Down syndromeJoshua M.D. unspecified G40.A09 Absence epileptic syndrome, not intractable, w/o stat epi Office Visit 10/13/2015 3:00p Main Office Samson Case, J40 Bronchitis , not M.D. specified as acute or chronic J06.9 Acute upper respiratory infection, unspecified Q90.9 Down syndrome, unspecified G40.A09 Absence epileptic syndrome, not intractable, w/o stat epi Office Visit 08/13/2015 [facility] Office Omi Garner M.D. J20.9 Acute bronchitis , 3:10p unspecified Office Visit 06/30/2015 Antonio Garner M.D. J06.9 Acute upper 9:50a Office respiratory infection, unspecified Office Visit 05/05/2015 Antonio Garner M.D. 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 Nonconvulsive W/O Intractable 790.21 Impaired Fasting Glucose Office Visit 09/30/2014 8:50a [facility] Omi Garner V70.0 Examination M.D. General Medical Routine AT [facility] 272.4 Hyperlipidemia Other Unspec 244.9 Hypothyroidism Other Unspec 758.0 Downs Syndrome Office Visit 04/29/2014 2:10p [facility] Office Omi Garner M.D. 758.0 Downs Syndrome 272.4 Hyperlipidemia Other Unspec 244.9 Hypothyroidism Other Unspec Plan of Treatment 11/16/2018 - Bhaskar Juarez MDJ18.8 Other pneumonia, unspecified organismAllNew Medication:Azithromycin 250 mg - 2 po today , then one po qd for 4 daysComments:Medication Management Patient Understands medications he's taking? Yes No Are there Barriersto Adherence? Yes No Has the patient been asked about herbal supplements and therapies, and OTC meds? Yes No
--- OUTSIDE RECORDS SUMMARY | 2018-11-18 11:08 | XMS REPORT | Continuity of Care Document ---
:1960 External Reference #:[id number] Author Name Ryanne Bradshaw Care Team Providers Name Role Phone Bhaskar Lewis MD Primary Care Physician Unavailable Payers Date Identification Numbers Payment Provider Subscriber Policy Number: [id number] Medicare [employer] PayID: [id number] [address] [place] [address] Policy Number: [id number] Medicaid [employer] Group Name: 1 1 [address] PayID: [id number] [place] [address] Advance Directives Description No Information Available Problems Date Description Provider Status Onset: 03/02/2015 Complete trisomy 21 syndrome Toni Paz MD Active Onset: 03/02/2015 Complex partial epileptic seizure Toni Paz MD Active Onset: 03/02/2015 Amnesia Toni Paz MD Active Family History Description No Information Available Social History Type Date Description Comments Sex Unknown ETOH Use Never used alcohol Tobacco Use Start: Unknown Patient has never smoked Smoking Status Reviewed: 11/05/18 Patient has never smoked Allergies, Adverse Reactions, Alerts Date Description Reaction Status Severity Comments 01/12/2015 Penicillins Active 01/12/2015 Sulfa Antibiotics Active Medications Medication Date Status Form Strength Qnty SIG Indications Ordering Provider Depakote ER 03/23 Active Tablets ER 500mg 270ta take 3 24HR bs tablets by ernst Paz every MD night at bedtime (seizures) Keppra 04/30 Active Tablets 500mg 75tab 1 tab by s mouth in the Brandi, morning and MD 1 1/2 tablets each evening . mdd 2 Multivitamins 00/00 Active Capsules 1 by mouth Unknown /0000 every day Simvastatin 0000 Active Tablets 40mg 1 by mouth Unknown /0000 every night at bedtime Miralax Active Powder 3350NF 17 gm every /0000 day mixed w/ 8 oz water/juice 2 times daily Peridex Active Solution 0.12% 10 cc daily Unknown Tylenol Extra Active Tablets 650mg as needed Unknown Strength /0000 Mineral Oil Active Oil instill 3 Unknown / drops each ear every week (break up wax) Maalox Active Suspension 200-200-2 2 tsp po prn Unknown Advanced /0000 0mg/5ML Robitussin Active Syrup 100mg/5ML 2 tsp PO prn Unknown Chest /0000 Congestion Bacitracin Active Ointment 500Unit/G 2 times Unknown /0000 M daily prn Ibuprofen Active Capsules 200mg as needed Unknown Dulcolax Active Suppository 10mg as needed Unknown Calamine Active Lotion apply topically as needed Tylenol Active Tablets 325mg 2 q 4 h prn Unknown Bisacodyl Ec Active Tablets DR 5mg take one tablet by mouth once daily for constipation as needed Levothyroxine Active Tablets 75mcg 1 by mouth Unknown Sodium / every day Valium 01/12 Hx Tablets 10mg 1tabs 1 po prior 345.40 /2014 to brenda Paz, - 03/01 Depakote ER Hx Tablets ER 500mg 90tab 3 tabs by 24HR s mouth every Brandi, - night at 03/23 bed Synthroid Hx Tablets 50mcg 1 by mouth Unknown /0000 every day - 11/04 Dilantin Hx Capsules 100mg 1 by mouth Unknown /0000 at bedtime - 09/22 Immunizations Description No Information Available Vital Signs Date Vital Result Comment 11/05/2018 9:34am Height 60 inches 5'0" Weight 188.12 lb Heart Rate 70 /min BP Systolic 124 mmHg BP Diastolic 78 mmHg BMI (Body Mass Index) 36.7 kg/m2 11/03/2017 9:38am Height 60 inches 5'0" Weight 182.12 lb Heart Rate 68 /min BP Systolic 118 mmHg BP Diastolic 78 mmHg BMI (Body Mass Index) 35.6 kg/m2 09/26/2016 11:17am Height 60 inches 5'0" Weight 185.00 lb Heart Rate 80 /min BP Systolic Sitting 120 mmHg BP Diastolic Sitting 82 mmHg BMI (Body Mass Index) 36.1 kg/m2 03/24/2016 9:09am Weight 171.00 lb Just weighed, nurse reports Heart Rate 84 /min BP Systolic Sitting 118 mmHg BP Diastolic Sitting 84 mmHg Respiratory Rate 16 /min 09/23/2015 9:19am Weight 167.00 lb Heart Rate 72 /min BP Systolic Sitting 126 mmHg BP Diastolic Sitting 74 mmHg Respiratory Rate 16 /min 05/19/2015 10:25am Weight 172.00 lb Heart Rate 72 /min BP Systolic Sitting 128 mmHg BP Diastolic Sitting 72 mmHg Respiratory Rate 18 /min 03/02/2015 2:14pm Weight 171.00 lb Heart Rate 72 /min BP Systolic Sitting 128 mmHg BP Diastolic Sitting 76 mmHg Respiratory Rate 16 /min 01/12/2015 2:41pm Weight 171.00 lb Heart Rate 68 /min BP Systolic Sitting 126 mmHg BP Diastolic Sitting 72 mmHg Respiratory Rate 16 /min Results Test Date Facility Test Result H/L Range Note Laboratory test 11/03/2017 [facility] Valproic Acid 121.0 g/ mL High 50-[address] (Depakene) [place] [address] [phone] Levetiracetam (Keppra) 24.0 g/mL 1 CBC Auto Diff 11/03/2017 [facility] White Blood 3.8 10^3/uL N 3.5-10.[address] [place] [address] [phone] Red Blood Count 4.67 10^6/uL N 4.0-5.4 [...] Cells % 0.1 Comp Metabolic Panel 11/03/2017 [facility] Sodium 131 mmol/L Low 133-[address] [place] [address] [phone] Potassium 4.5 mmol/L N 3.5-5.0 Chloride 95 [...] Egfr Non- 80.4 >60 Egfr 103.3 >60 2 Laboratory test 02/06/2017 [facility] TSH (Thyroid 6.27 High 0.34-5.[address] Stim Horm) mcIU/[place] [address] [phone] PSA Screening 6.759 ng/mL High 0-4.000 3 Free T4 (Free Thyroxine) 0.84 ng/dL N 0.61-1.12 Hepatitis B Surface Ag Nonreactive N Nonreactive Laboratory test 02/06/2017 [facility] Varicella Negative N Negative [address] [place] [address] [phone] Varicella Zoster 02/06/2017 [facility] Varicella-Zoste Positive N [address] [place] [address] [phone] Varicella IgG Antibody Index 2.0 N 6 Laboratory 02/06/2017 [facility] Hepatitis C Nonreactive N Nonreactive test finding [address] [place] [address] [phone] Hepatitis B 02/06/2017 [facility] Hepatitis B Nonreactive N Nonreactive Rui AB Titer [address] [place] [address] [phone] Hep B Surf AB Level < 3.10 mIU/mL N <12 7 CMP Panel 11/14/2016 [facility] Sodium 136 mmol/L N 133-[address] [place] [address] [phone] Potassium 4.7 mmol/L N 3.5-5.0 Chloride 102 mmol/L N 101-111 Co2 Carbon Dioxide 31 mmol/L N 22-32 Anion Gap 3 mmol/L N 2-11 Glucose 114 mg/dL High 70-100 Blood Urea Nitrogen 16 mg/dL N 6-24 Creatinine 1.03 mg/dL N 0.67-1.17 BUN/Creatinine Ratio 15.5 N 8-20 Calcium 9.0 mg/dL N 8.6-10.3 Total Protein 6.8 g/dL N 6.4-8.9 Albumin 3.4 g/dL N 3.2-5.2 Globulin 3.4 g/dL N 2-4 Albumin/Globulin Ratio 1.0 N 1-3 Total Bilirubin 0.50 mg/dL N 0.2-1.0 Alkaline Phosphatase 46 U/L N 34-104 Alt 12 U/L N 7-52 Ast 19 U/L N 13-39 Egfr Non- 75.3 N >60 Egfr 96.8 N >60 8 CBC W/Auto 11/14/2016 [facility] White Blood 4.6 10^3/uL N 3.5 -10.[address] [place] [address] [phone] Red Blood Count 4.92 10^6/uL N 4.0-5.4 Hemoglobin 16.2 g/dL N 14.0-18.0 Hematocrit 48 % N 42-52 Mean Corpuscular Volume 98 fL High 80-94 Mean Corpuscular Hemoglobin 33 pg High 27-31 Mean Corpuscular HGB Conc 34 g/dL N 31-36 Red Cell Distribution Width 14 % N 10.5-15 Platelet Count 174 10^3/uL N 150-450 Mean Platelet Volume 9 um3 N 7.4-10.4 Abs Neutrophils 1.1 10^3/uL Low 1.5-7.7 Abs Lymphocytes 3.0 10^3/uL N 1.0-4.8 Abs Monocytes 0.4 10^3/uL N 0-0.8 Abs Eosinophils 0 10^3/uL N 0-0.6 Abs Basophils 0 10^3/uL N 0-0.2 Abs Nucleated RBC 0.01 10^3/uL N Granulocyte % 23.5 % Low 38-83 Lymphocyte % 65.8 % High 25-47 Monocyte % 9.5 % High 1-9 Eosinophil % 0.4 % N 0-6 Basophil % 0.8 % N 0-2 Nucleated Red Blood Cells % 0.1 N Laboratory test 11/14/2016 [facility] Levetiracetam 15.1 g/mL N [address] (Keppra) [place] [address] [phone] Valproic Acid (Depakene) 109.0 g/mL High 50-100 CBC Auto Diff 03/25/2016 [facility] White Blood 5.0 10^3/uL N 3.5-10.[address] [place] [address] [phone] Red Blood Count 4.65 10^6/uL N 4.0-5.4 [...] Cells % 0.3 N Laboratory test 03/25/2016 [facility] Levetiracetam 18.5 g/mL N [address] (Keppra) [place] [address] [phone] Valproic Acid (Depakene) 97.0 g/mL N 50-100 12 CBC Auto Diff 03/25/2016 [facility] White Blood 5.0 10^3/uL N 3.5-10.[address] [place] [address] [phone] Red Blood Count 4.65 10^6/uL N 4.0-5.4 [...] Nucleated Red Blood Cells % 0.3 N Comp Metabolic Panel 03/25/2016 [facility] Sodium 138 mmol/L N 133-145 [address] [place] [address] [phone] Potassium 4.2 mmol/L N 3.5-5.0 Chloride 102 [...] 78.2 N >60 Egfr 100.5 N >60 13 Lipid Profile 03/25/2016 [facility] Triglycerides 91 mg/dL N 14 (Trig/Chol/HDL) [address] [place] [address] [phone] Cholesterol 158 mg/dL N 15 HDL Cholesterol 44.6 mg/dL N 16 LDL Cholesterol 95 mg/dL N 17 Laboratory test 03/25/2016 [facility] TSH (Thyroid 6.85 High 0.34-5.[address] Stim Horm) mcIU/[place] [address] [phone] Free T4 (Free Thyroxine) 0.89 ng/dL N 0.61-1.12 19 Laboratory test 11/19/2015 [facility] Valproic Acid 99.0 g/mL N 50-[address] (Depakene) [place] [address] [phone] Levetiracetam (Keppra) 19.4 g/mL N 20 Comp Metabolic Panel 11/19/2015 [facility] Sodium 136 mmol/L N 133-[address] [place] [address] [phone] Potassium 4.4 mmol/L N 3.5-5.0 Chloride 99 [...] 71.5 N >60 Egfr 92.0 N >60 21 CBC Auto Diff 11/19/2015 [facility] White Blood 4.3 10^3/uL N 3.5-10.[address] [place] [address] [phone] Red Blood Count 5.16 10^6/uL N 4.0-5.4 [...] Cells % 0.1 N Comp Metabolic Panel 10/08/2015 [facility] Sodium 135 mmol/L N 133-145 [address] [place] [address] [phone] Chloride 98 mmol/L Low 101-111 Co2 Carbon [...] 78.2 N >60 Egfr 100.5 N >60 22 Potassium 4.6 mmol/L N 3.5-5.0 Anion Gap 8 mmol/L N 2-11 Ast 28 U/L N 13-39 Laboratory test 10/08/2015 [facility] Levetiracetam 17.0 g/mL N 23 finding [address] [facility] (Keppra) [place] [address] [phone] Valproic Acid (Depakene) 86.0 g/mL N 50-100 Laboratory test 08/24/2015 [facility] Levetiracetam 18.9 g/mL N 24 finding [address] [place] [address] [phone] Valproic Acid 94.0 g/mL N 50-100 Comp Metabolic Panel 08/24/2015 [facility] Sodium 136 mmol/L N 133-145 [address] [place] [address] [phone] Potassium 4.6 mmol/L N 3.5-5.0 Chloride 98 [...] 68.6 N >60 Egfr 88.2 N >60 25 CBC Auto Diff 08/24/2015 [facility] White Blood 5.0 10^3/uL N 3.5-10.[address] [place] [address] [phone] Red Blood Count 4.92 10^6/uL N 4.0-5.4 [...] N Platelet Count 263 10^3/uL N 150-450 26 Mean Platelet Volume 9 um3 N 7.4-10.4 Laboratory 05/14/2015 [facility] Levetiracetam 10.1 Abnormal 27 test finding [address] (Keppra) g/[place] [address] [phone] Comp Metabolic 01/29/2015 [facility] Sodium 137 mmol/L N [address] [place] [address] [phone] Potassium 4.0 mmol/L N 3.5-5.0 Chloride 98 mmol/L Low 101-111 Co2 Carbon Dioxide 34 mmol/L High 22-32 Anion Gap 5 mmol/L N 2-11 Glucose 175 mg/dL High 70-100 Blood Urea Nitrogen 15 mg/dL N 6-24 Creatinine 1.12 mg/dL N 0.67-1.17 BUN/Creatinine Ratio 13.4 N 8-20 Calcium 8.8 mg/dL N 8.6-10.3 Total Protein 7.1 g/dL N 6.4-8.9 Albumin 3.9 g/dL N 3.2-5.2 Globulin 3.2 g/dL N 2-4 Albumin/Globulin Ratio 1.2 N 1-3 Total Bilirubin 0.40 mg/dL N 0.2-1.0 Alkaline Phosphatase 50 U/L N 34-104 Alt 15 U/L N 7-52 Ast 19 U/L N 13-39 Egfr Non- 68.8 N >60 Egfr 88.5 N >60 28 CBC Auto Diff 01/29/2015 [facility] White Blood 7.0 10^3/uL N 4.8-10.[address] [place] [address] [phone] Red Blood Count 5.26 10^6/uL N 4.0-5.4 Hemoglobin 16.6 g/dL N 14.0-18.0 Hematocrit 53 % High 42-52 Mean Corpuscular Volume 100 fL High 80-94 Mean Corpuscular Hemoglobin 32 pg High 27-31 Mean Corpuscular HGB Conc 32 g/dL N 31-36 Red Cell Distribution Width 14 % N 10.5-15 Platelet Count 206 10^3/uL N 150-450 Mean Platelet Volume 9 um3 N 7.4-10.4 Abs Neutrophils 4.3 10^3/uL N 1.5-7.7 Abs Lymphocytes 1.9 10^3/uL N 1.0-4.8 Abs Monocytes 0.7 10^3/uL N 0-0.8 Abs Eosinophils 0.1 10^3/uL N 0-0.6 Abs Basophils 0.1 10^3/uL N 0-0.2 Abs Nucleated RBC 0.01 10^3/uL N Granulocyte % 60.7 % N 38-83 Lymphocyte % 26.7 % N 25-47 Monocyte % 9.3 % High 1-9 Eosinophil % 1.5 % N 0-6 Basophil % 1.8 % N 0-2 Nucleated Red Blood Cells % 0.1 N Laboratory test 01/29/2015 [facility] Valproic Acid 97.0 g/mL N 50-[address] [place] [address] ([place] [address] [phone] 1 REFERENCE VALUE 12.0 - 46.0 ADDITIONAL INFORMATION This test was developed and its performance characteristics determined by [facility] in a manner consistent with CLIA requirements. This test has not been cleared or approved by the U.S. Food and Drug Administration. Test Performed by: [facility] [address] [place] [address] 2 Because ethnic data is not always readily [...] 15-29 5 Kidney failure <15 (or dialysis) 3 Serum levels of PSA measured using the [employer] DXI Hybritech immunoassay should not be interpreted as absolute evidence of the presence or absence of disease. The PSA value should be used in conjunction with other pertinent clinical diagnostic procedures. The values obtained with different assay methods or kits cannot be used interchangeably. 4 Test Performed by: [place] [address] 5 Results suggest response to immunization or prior exposure to the virus. REFERENCE VALUE Vaccinated: Positive (>=1.1 AI) Unvaccinated: Negative (<=0.8 AI) 6 Test Performed by: [place] [address] 7 This assay does not differentiate between reactivity due to a vaccine-induced immune response or an immune response induced by infection with HBV. 8 Because ethnic data is not always readily [...] 15-29 5 Kidney failure <15 (or dialysis) 9 REFERENCE VALUE 12.0 - 46.0 ADDITIONAL INFORMATION This test was developed and its performance characteristics determined by [facility] in a manner consistent with CLIA requirements. This test has not been cleared or approved by the U.S. Food and Drug Administration. Test Performed by: [facility] - [address] [address] 10 [id number] 11 REFERENCE VALUE 12.0 - 46.0 Test Performed by: [facility] [place] [address] Software Technical Lead: Sy Arrington II, M.D., Ph.D. 12 [id number] 13 Because ethnic data is not always [...] 5 Kidney failure <15 (or dialysis) 14 Desirable <150 Borderline high 150-199 High 200-499 Very High >500 15 Desirable <200 Borderline high 200-239 High >239 16 Low <40 Desirable: 40-60 High: >60 17 Desirable: <100 mg/dL Near Optimal: 100-129 mg/dL Borderline High: 130-159 mg/dL High: 160-189 mg/dL Very High: >189 mg/dL 18 [id number] 20 REFERENCE VALUE 12.0 - 46.0 Test Performed by: [place] [address] Software Technical Lead: Sy Arrington II, M.D., Ph.D. 21 Because ethnic data is not always readily [...] 15-29 5 Kidney failure <15 (or dialysis) 22 Because ethnic data is not always readily [...] 15-29 5 Kidney failure <15 (or dialysis) 23 REFERENCE VALUE 12.0 - 46.0 Test Performed by: [facility] [employer] [place] [address] Software Technical Lead: Sy Arrington II, M.D., Ph.D. 24 REFERENCE VALUE 12.0 - 46.0 Test Performed by: [facility] [place] [address] Software Technical Lead: Ginny De La Vega, Ph.D. 25 Because ethnic data is not always readily [...] 15-29 5 Kidney failure <15 (or dialysis) 26 Platelet count confirmed by smear estimate. 27 REFERENCE VALUE 12.0 - 46.0 Test Performed by: [facility] - [address] [address] Software Technical Lead: Sy Arrington II, M.D., Ph.D. 28 Because ethnic data is not always readily [...] 15-29 5 Kidney failure <15 (or dialysis) Procedures Date Code Description Status 08/15/2016 14650 EEG Recording Awake & Drowsy Completed 01/13/2015 38225 EEG Recording Awake & Drowsy Completed Encounters Type Date Location Provider Dx Diagnosis Office Visit 11/03/2017 [facility] T[facility] Paz, Q90.9 Down syndrome, 9:45a unspecified G40.209 Local-rel symptc epi w cmplx prt seiz,not ntrct,w/o stat epi Office Visit 09/26/2016 [facility] G40.209 Local-rel 11:15a [facility] MD conchita Paz epi w cmplx prt seiz,not ntrct,w/o stat epi Z79.899 Other long-term (current) drug therapy Office Visit 03/24/2016 [facility] G40.209 Local-rel 9:15a MD conchita Barron epi w cmplx prt seiz,not ntrct,w/o stat epi Q90.9 Down syndrome, unspecified Office Visit 09/23/2015 9:15a [facility] Toni Paz, G40.209 Local-rel [facility] MD conchita burger w cmplx prt seiz,not ntrct,w/o stat epi Q90.9 Down syndrome, unspecified Office Visit 05/19/2015 9:15a [facility] Toni Paz, G40.209 Local-rel [facility] MD arango epi w cmplx prt seiz,not ntrct,w/o stat epi Office Visit 03/02/2015 2:15p 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 Will check levels and bloodwork before the annual visit. Has some weight gain - has been on depakote for a while and discussedthat depakote can cause some weight gain.Downs stable without any progressive memory loss that can be detected.Follow up:1 YEARQ90.9 Down syndrome , unspecified
[2018-11-18 11:14] LABS: Albumin 3.6 g/dL (3.2-5.2); BUN/Creatinine Ratio 10.3 (8-20); C Reactive Protein 34.69 mg/L (<8.01); Calcium 8.9 mg/dL (8.6-10.3); EGFR African American 109.8 (>60); EGFR Non-African American 90.8 (>60); Globulin 3.5 g/dL (2-4); Potassium 4.1 mmol/L (3.5-5.0); Total Bilirubin 0.3 mg/dL (0.2-1.0); Total Protein 7.1 g/dL (6.4-8.9)
[2018-11-18] MEDS ORDERED: Albuterol/Ipratropium NEB.SOL* Albuterol 2.5 MG/Ipratropium 0.5 MG 3 ML INH ONE ×2 (12:52→15:26)
[2018-11-18] MEDS ORDERED: methylPREDNISolone 125 MG* 2 ML VIAL IV ONE (12:52)
[2018-11-18] MEDS ORDERED: Albuterol/Ipratropium NEB.SOL* Albuterol 2.5 MG/Ipratropium 0.5 MG 3 ML ONE (15:15)
[2018-11-18] MEDS ORDERED: Benzonatate CAP* 100 MG PO PRN (16:11)
[2018-11-18] MEDS ORDERED: Albuterol 2.5 MG/3 ML NEB.SOL* (0.083%) INH PRN (16:11)
[2018-11-18] MEDS ORDERED: Ondansetron INJ* 2 MG/ML VIAL IV PRN (16:11)
[2018-11-18] MEDS ORDERED: Polyethylene Glycol 3350* 17 GM PACKET PO PRN (16:14)
[2018-11-18] MEDS: cefTRIAXone(*) 1 GM in NS 0.9% 50 ML* 50 ML IVPB SCH (16:46)
[2018-11-18] MEDS ORDERED: Lactated Ringers 1000 ML Bag* 1,000 ML IV SCH (17:00)
[2018-11-18] MEDS: DOXYcycline IV* 100 MG in NS 0.9% 250 ML* 250 ML IVPB SCH (18:39)
[2018-11-18] MEDS: Albuterol/Ipratropium NEB.SOL* Albuterol 2.5 MG/Ipratropium 0.5 MG 3 ML INH SCH ×2 (20:12→23:14)
[2018-11-18] MEDS: Atorvastatin* 20 MG TAB PO SCH (20:49)
[2018-11-18] MEDS: levETIRAcetam TAB* 500 MG PO SCH (20:49)
[2018-11-18] MEDS: Divalproex ER TAB(*) 500 MG PO SCH (20:49)
[2018-11-18] MEDS: guaiFENesin ER TAB 600 MG PO SCH (20:50)
[2018-11-18] MEDS: Heparin VIAL(*) 5000 UNITS/ML VIAL (FIVE THOUSAND) SUBCUT SCH (20:50)
--- NOTE | 2018-11-18 20:54 | HP ---
CC: Dr. Bhaskar Lewis * ADMISSION HISTORY AND PHYSICAL: DATE OF ADMISSION: 11/18/18 PRIMARY CARE PROVIDER: Dr. Bhaskar Lewis. MY ATTENDING WHILE IN THE HOSPITAL: Dr. Laina Manley.* (DICTATED BY RADHA SCHULTE) CHIEF COMPLAINT: Cough and wheezing x3 days. HISTORY OF PRESENT ILLNESS: Mr. Ji is a 58-year-old male with past medical history significant for Down syndrome, allergies and irritable bowel syndrome, who presents to the emergency department from his snf after 3 days of cough, shortness of breath and being found hypoxic down to 85% on room air this morning. The patient 3 days ago had these same symptoms with cough and shortness of breath and was diagnosed with pneumonia and started on azithromycin. The patient has taken 3 days of a Z-Audie to this point. The patient has had no improvement in his symptoms and has had worsening respiratory status. The patient had a low-grade temperature elevation at 100, which was not reproduced in the emergency department. The patient has significant rhonchi audible and has been that way for 3 days. The patient has no sick contacts, but one of the other members of his snf today began developing similar symptoms. The patient is currently nonverbal and this history is obtained from his warehouse administrative assistant. The patient denies current pain. The patient has had no diarrhea, no blood in his urine or other urinary symptoms. The patient was admitted to the hospital in late 2018 for pneumonia as well. The patient denies chest pain. The patient has not complained of nausea or had any vomiting. The patient has concerns for aspiration with large foods and is on mechanical ground diet at his snf. The patient in the emergency department was found to be persistently hypoxic despite steroids and inhalers and we were asked to evaluate the patient for admission to the hospital. PAST MEDICAL HISTORY: Down syndrome, epilepsy, IBS, hypothyroidism, hyperlipidemia, strabismus, obesity. PAST SURGICAL HISTORY: None known. MEDICATIONS: 1. Ibuprofen 400 mg p.o. q.4 hours as needed for pain. 2. Tylenol 325 mg p.o. q.4 hours as needed for pain. 3. Guaifenesin 100 mg/5 mL, 5 mL by mouth q.4 hours as needed for cough. 4. Bacitracin as needed for skin abrasions. 5. Vitamin D ointment for skin irritation as needed. 6. Calcium chew tab 500 mg p.o. q.6 hours as needed for indigestion. 7. Hydrocortisone 1% cream as needed for bug bites. 8. Bisacodyl 10 mg as needed every 3 days for constipation. 9. Chlorhexidine mouthwash 10 cc nightly for gingivitis. 10. Simvastatin 40 mg p.o. daily. 11. Daily Vitamin 1 tab p.o. daily. 12. Keppra 500 mg p.o. q.a.m. 13. Keppra 750 mg p.o. q.p.m. 14. Depakote 1500 mg p.o. q.4 hours as needed. 15. Polyethylene glycol 17 g p.o. daily as needed. 16. Loratadine 10 mg p.o. daily. 17. Levothyroxine 75 mcg p.o. daily. ALLERGIES: PENICILLIN and SULFA. FAMILY HISTORY: Unknown. SOCIAL HISTORY: The patient never smoked, drank, or used illicit drugs. The patient goes to a day program. The patient has been in his current snf for approximately 7 to 8 years and lived with his mother before that. The patient has no known occupational exposures. The patient is never and has no children. The patient's advocate is Natividad Rome. REVIEW OF SYSTEMS: A 14-point review of systems was reviewed with the patient' s warehouse administrative assistant and is negative except as above in the HPI. PHYSICAL EXAMINATION GENERAL: The patient is a 58-year-old male, who appears stated age and sitting comfortably in bed, in no acute distress. VITAL SIGNS: Temperature 98.9, pulse rate 77, respiratory rate 16, oxygen saturation 94% on 3 L, and blood pressure 139/95. HEENT: Head: Normocephalic, atraumatic. Sclerae anicteric. No conjunctival injection. Nasal mucosa moist. Oral mucosa moist. No pharyngeal erythema, discharge, or exudate. NECK: Supple, nontender. No lymphadenopathy. No carotid bruits auscultated. No JVD. RESPIRATORY: Clear to auscultation bilaterally. No wheezes or rales. Rhonchi throughout, heard best in the bilateral lower lobes. Good air exchange bilaterally. CARDIAC: Regular rate and rhythm. No clicks, murmurs, gallops, or rubs. Pulses are 2+ in the bilateral dorsalis pedis, posterior tibialis, and radial areas. ABDOMEN: Soft, nontender, nondistended. Bowel sounds present and normoactive in all 4 quadrants. No hepatosplenomegaly. No abdominal bruits auscultated. No hepatojugular reflux. GENITOURINARY: No suprapubic or CVA tenderness. NEURO: Cranial nerves II through XII grossly intact except for known exotropia of the left eye. PSYCHIATRIC: Pleasant and cooperative. Largely nonverbal. SKIN: Reticular rash on the bilateral lower extremities. No other rashes or ulcers. DIAGNOSTIC STUDIES/LAB DATA: Sodium 130, potassium 4.1, chloride 96, carbon dioxide 29, anion gap 7, BUN 9, creatinine 0.87, glucose 234, lactic acid 2.3, calcium 8.9. Bilirubin 0.3, AST 23, ALT 17, alkaline phosphatase 48. Troponin I of 0.00. CRP 34.69. Protein 7.1, albumin 3.5, globulin 3.5. White blood cell count 7.0, hemoglobin 15.7, hematocrit 47, MCV 96, MCH 32, platelet count 176. Studies: EKG shows right bundle branch block, right axis deviation; T-wave inversions in V1 through V4; T-wave inversions in II, II, aVF; rate of 96; QTc of 440. No hypertrophy or enlargement obvious. Compared to previous exam, there are no significant changes. Chest x-ray: There was no active cardiopulmonary disease. ASSESSMENT AND PLAN: Impression: Mr. Ji is a 58-year-old male with past medical history significant for Down syndrome, irritable bowel syndrome, hypothyroidism and epilepsy, who presents to the emergency department with 3 days of worsening shortness of breath, cough and hypoxia and will be admitted to the hospital for pneumonia likely viral possibly bacterial and possible exacerbation of underlying reactive airway disease. 1. Acute hypoxic respiratory failure, likely viral pneumonia, possible bacterial pneumonia and possible exacerbation of underlying reactive airway disease. The patient has had 3 days of worsening cough and shortness of breath. The patient has no infiltrate on his chest x-ray to indicate pneumonia ; however, the patient has an elevated lactic acid and may be dehydrated. This will be repeated in the morning to check for a blossoming infiltrate. The patient has been on azithromycin for 3 days without improvement. The patient will be switched to ceftriaxone and doxycycline for coverage for bacterial pneumonia, though if there is persistently no infiltrate on chest x-ray, this may be discontinued as the patient has no confirmed fevers or infiltrate as well as no tachycardia or hypotension. The patient has no diagnosed history of asthma or chronic obstructive pulmonary disease and has never smoked; however, the patient does have chronic history of seasonal allergies showing that he may be prone to atopy and possibly reactive airway disease. The patient is currently requiring 3 L of oxygen to maintain his saturation above 90%. The patient was found to be markedly hypoxic at his snf. The patient is not currently markedly tachypneic and does not appear overtly sick. The patient is not hypotensive. The patient will be started on fluids at 75 mL an hour with a repeat check of his lactic acid. The patient's influenza A and B are negative. Given that the patient's housemate is currently ill with similar symptoms, this is unlikely to be related to the patient's possible aspiration; however, if the patient fails to improve on current regimen, anaerobic coverage should be considered. We will check a urine antigen for Strep pneumoniae and Legionella. We will get a sputum culture if possible. 2. Seizure disorder. Continue the patient's Keppra and Depakote. The patient has not had seizures since last May per Neurology notes. The patient has not had a recent seizure per the patient's warehouse administrative assistant. 3. Irritable bowel syndrome. Continue the patient's bowel regimen while in the hospital and monitor for constipation. 4. Hypothyroidism. Continue levothyroxine. 5. Hyperlipidemia. Continue the patient's statin. 6. Impaired glucose tolerance. The patient's glucose in the emergency department is 234. The patient has numerous morning glucoses with elevated levels. We will check hemoglobin A1c. The patient's most recent hemoglobin A1c in 2014 was 6.4. If the patient's hemoglobin A1c is markedly elevated, diabetic treatment while in the hospital with acute infection may be indicated and home diabetes medication may be considered. 7. DVT prophylaxis: The patient is moderate risk. The patient will have heparin subcu. 8. FEN: The patient will have a mechanical ground, heart-healthy diet. 9. Code status: The patient is a full code. The patient's surrogate decision maker will be his advocate, Natividad Rome, as above. TIME SPENT: Approximately 60 minutes was spent on the admission of this patient , 30 of which was spent [id number] with the patient obtaining history and physical and discussing treatment plan. This plan was discussed with my attending, Dr. Laina Manley, and she is in agreement. RADHA SCHULTE [id number]/CPS #: [id number] KISHOR
[2018-11-19] MEDS: Albuterol/Ipratropium NEB.SOL* Albuterol 2.5 MG/Ipratropium 0.5 MG 3 ML INH SCH ×2 (03:06→08:01)
[2018-11-19] MEDS: Heparin VIAL(*) 5000 UNITS/ML VIAL (FIVE THOUSAND) SUBCUT SCH ×3 (04:54→23:13)
[2018-11-19] MEDS: DOXYcycline IV* 100 MG in NS 0.9% 250 ML* 250 ML IVPB SCH ×2 (04:55→17:30)
[2018-11-19] MEDS: Levothyroxine TAB* 75 MCG TAB PO SCH (04:55)
[2018-11-19 06:25] LABS: ABS Basophils 0.1 10^3/ul (0-0.2); ABS Eosinophils 0 10^3/ul (0-0.6); ABS Lymphocytes 1.5 10^3/ul (1.0-4.8); ABS Monocytes 0.5 10^3/ul (0-0.8); ABS Neutrophils 6.6 10^3/ul (1.5-7.7); ABS Nucleated RBC 0 10^3/ul; Eosinophil % 0 %; Hematocrit 41 % (36-46); Hemoglobin 14.2 g/dL (14.0-18.0); Lymphocyte % 17.1 %; Mean Corpuscular HGB Conc 35 g/dL (31-36); Mean Corpuscular Hemoglobin 33 pg (27-31); Mean Corpuscular Volume 97 fL (80-94); Nucleated Red Blood Cells % 0; Platelet Count 186 10^3/uL (150-450); Red Blood Count 4.26 10^6 /uL (4.18-5.48); Red Cell Distribution Width 14 % (10.5-15); White Blood Count 8.7 10^3/uL (3.5-10.8)
[2018-11-19 06:45] LABS: BUN/Creatinine Ratio 12.1 (8-20); Calcium 8.6 mg/dL (8.6-10.3); EGFR African American 104.3 (>60); EGFR Non-African American 86.2 (>60); Magnesium 1.9 mg/dL (1.9-2.7); Potassium 4.5 mmol/L (3.5-5.0)
[2018-11-19] MEDS: Cetirizine* 10 MG TAB PO SCH (08:50)
[2018-11-19] MEDS: levETIRAcetam TAB* 500 MG PO SCH ×2 (08:51→23:03)
[2018-11-19] MEDS: guaiFENesin ER TAB 600 MG PO SCH ×2 (08:52→23:07)
[2018-11-19] MEDS: predniSONE TAB* 20 MG PO SCH (08:53)
--- NOTE | 2018-11-19 08:54 | PN ---
Subjective Date of Service: 11/19/18 Interval History: patient found laying in bed watching TV in NAD. Developmental aide at bedside who knows the patient well. She reports he seems a little better today but not much. Laying around w/o much energy watching TV. He follows commands. appears stable and non toxic. has been eating meals. Objective Active Medications: Acetaminophen (Tylenol Tab*) 650 mg PO Q6H PRN PRN Reason: FEVER/PAIN Albuterol (Ventolin 2.5 Mg/3 Ml Neb.Page*) 2.5 mg INH Q2H PRN PRN Reason: SOB/WHEEZING Albuterol/Ipratropium (Duoneb (Albuterol 2.5 Mg/Ipratropium 0.5 Mg)) 1 neb INH [id number] AWAKE [facility] Last Admin: 11/19/18 08:01 Dose: 1 neb Atorvastatin Calcium (Lipitor*) 20 mg PO BEDTIME [facility] Last Admin: 11/18/18 20:49 Dose: 20 mg Benzonatate (Tessalon Cap*) 100 mg PO BID PRN PRN Reason: COUGH Cetirizine HCl (Zyrtec*) 10 mg PO DAILY [facility] Chlorhexidine Gluconate (Peridex Mouth Wash 0.12%*) 10 ml SWISH SPIT DAILY [facility] Divalproex Sodium (Depakote Er Tab(*)) 1,500 mg PO BEDTIME [facility] Last Admin: 11/18/18 20:49 Dose: 1,500 mg Guaifenesin (Mucinex*) 1,200 mg PO BID [facility] Last Admin: 11/18/18 20:50 Dose: 1,200 mg Heparin Sodium (Porcine) (Heparin Vial(*)) 5,000 units SUBCUT Q8HR [facility] Last Admin: 11/19/18 04:54 Dose: 5,000 units Doxycycline Hyclate 100 mg/ (Sodium Chloride) 250 mls @ 250 mls/hr IVPB Q12H [facility] Last Admin: 11/19/18 04:55 Dose: 250 mls/hr Ceftriaxone Sodium 1 gm/ (Sodium Chloride) 50 mls @ 200 mls/hr IVPB Q24H [facility] Last Admin: 11/18/18 16:46 Dose: 200 mls/hr Lactated Ringer's (Lactated Ringers 1000 Ml Bag*) 1,000 mls @ 75 mls/hr IV PER RATE [facility] Levetiracetam (Keppra Tab*) 500 mg PO DAILY [facility] Levetiracetam (Keppra Tab*) 750 mg PO BEDTIME [facility] Last Admin: 11/18/18 20:49 Dose: 750 mg Levothyroxine Sodium (Synthroid Tab*) 75 mcg PO 0600 [facility] Last Admin: 11/19/18 04:55 Dose: 75 mcg Ondansetron HCl (Zofran Inj*) 4 mg IV Q6H PRN PRN Reason: NAUSEA Polyethylene Glycol/Electrolytes (Miralax*) 17 gm PO DAILY [facility] Polyethylene Glycol/Electrolytes (Miralax*) 17 gm PO BID PRN PRN Reason: CONSTIPATION Prednisone (Deltasone Tab*) 60 mg PO DAILY [facility] Vital Signs - 8 hr 11/19/18 11/19/18 11/19/18 03:14 06:51 08:02 Temperature 98.1 F 98.1 F Pulse Rate 93 85 82 Respiratory 16 14 14 Rate Blood Pressure 128/62 119/61 (mmHg) O2 Sat by Pulse 92 94 92 Oximetry Oxygen Devices in Use Now: Nasal Cannula Appearance: developmental 58 yo down syndrome male laying in bed watching TV, A+ O Eyes: No Scleral Icterus, PERRLA Ears/Nose/Mouth/Throat: Clear Oropharnyx, Mucous Membranes Moist Respiratory: Symmetrical Chest Expansion and Respiratory Effort, - - diminished b/l but noted aeration throughout. Cardiovascular: NL Sounds; No Murmurs; No JVD, RRR, No Edema Abdominal: NL Sounds; No Tenderness; No Distention Extremities: No Edema, No Clubbing, Cyanosis Skin: No Rash or Ulcers Neurological: NL Muscle Strength and Tone, - - alert, follows commands. no focal deficits noted Lines/Tubes/Other Access: Clean, Dry and Intact Peripheral IV Nutrition: Taking PO's Result Diagrams: 11/19/18 06:17 11/19/18 06:17 Microbiology and Other Data: Microbiology 11/18/18 20:15 Legionella Urinary Antigen - Final Urine Negative Legionella Antigen Streptococcus pneumoniae Ag Screen - Final Negative S. pneumo Antigen 11/18/18 10:23 Influenza Types A,B Antigen - Final Nasopharyngeal Specimen received for Influenza A/B Molecular testing Assess/Plan/Problems-Billing Assessment: 58 yo male with a PMH of down syndrome, IBS, hypothyroidism and epilepsy who presented on 11/18 with 3 days of worsening SOB, cough found to be hypoxic. - Patient Problems (1) Acute respiratory failure with hypoxia Comment: - suspect viral illness vs bacterial pna. Influenza negative. - stable improving slowly. Titrate oxygen as tolerates - currently on 2L NC. - chest xray on admission negative; repeat this am showing interstial edema with possible CHF. Stop IVFs. Breathing appears comfortable. Hold on diuretics - obtain TTE - blood cx day 1 negative - urine antigen s. pneumn and leginella negative - try to obtain sputum cx. - continue ceftriaxone/Doxy (2) Diabetes Comment: no previous dx. hgA1c 6.8 Is on steroids which will increase fasting BG start FSBG and sliding scal and monitor - will most likely need medication going home and close follow up with PCP (3) Down syndrome Comment: - supportive treatment (4) Seizure disorder Comment: - seizure precautions - continue home dose keppra and Depakote (5) Hypothyroid Comment: - continue synthroid (6) DVT prophylaxis Comment: HSQ (7) Patient is full code Status and Disposition: inpatient with hypoxic resp failure suspected to be secondary to viral upper illness. lives in a skilled nursing.
[2018-11-19] MEDS ORDERED: Dextrose 50% Syringe 50 ML* 25 GM/50 ML SYRINGE IV PUSH PRN (08:55)
[2018-11-19] MEDS: Polyethylene Glycol 3350* 17 GM PACKET PO SCH (08:56)
[2018-11-19] MEDS: Chlorhexidine MOUTHWASH 0.12%* 15 ML UDC SWISH SPIT SCH (08:57)
[2018-11-19] MEDS ORDERED: Albuterol/Ipratropium NEB.SOL* Albuterol 2.5 MG/Ipratropium 0.5 MG 3 ML INH PRN (09:29)
[2018-11-19] MEDS: Insulin LISPRO* 1 UNITS UNIT SUBCUT SCH ×3 (12:50→22:55)
[2018-11-19 15:14] LABS: TSH (Thyroid Stimulating Horm) 0.24 mcIU/mL (0.34-5.60)
[2018-11-19 15:26] LABS: Vitamin D Total 25(OH) 43.6 ng/mL (20-50)
[2018-11-19] MEDS ORDERED: Perflutren Lipid Microsphere* 3 ML VIAL ONE (15:30)
--- NOTE | 2018-11-19 16:46 | ECHO ---
Patient: TK DUARTE [facility] Rec#: [id number] : 1960 Date: 11/19/2018 Age: 58y Height: 152 cm / 59.8 in Weight: 90 kg / 198.4 lbs Sex: M BSA: 1.86 Room#: 421 Admit Date#: 11/18/2018 Type: Inpatient Referring: Rashida Guevara Reading: Chris Ramirez MD Implementation Technician: Jayshree Fuentes RDCS CC: Bhaskar Lewis MD Transthoracic Echocardiogram Indication: SOB BP: 119/61 HR: 81 Rhythm: NSR Findings History: Down's syndrome,epilepsy,hypothyroid,HLD,obesity. Definity used to enhance images. Technical Comments: The study is technically difficult. The study is technically limited due to patient body habitus. Completed at 1611. Left Ventricle: The left ventricular chamber size is normal. Global left ventricular wall motion and contractility are within normal limits. There is normal left ventricular systolic function. The estimated ejection fraction is 55-60%. Abnormal left ventricular diastolic function is observed. Left Atrium: The left atrial chamber size is normal. Right Ventricle: The right ventricle is not well visualized. Right Atrium: The right atrium is not well visualized. Aortic Valve: The aortic valve is trileaflet. There is no evidence of aortic valve thickening. There is no evidence of aortic regurgitation. There is no evidence of aortic stenosis. Mitral Valve: The mitral valve leaflets are mildly thickened. There is no evidence of mitral regurgitation. There is no evidence of mitral stenosis. Tricuspid Valve: The tricuspid valve leaflets are normal. There is no evidence of tricuspid valve regurgitation. There is no tricuspid stenosis. Pulmonic Valve: The pulmonic valve appears normal. There is no evidence of pulmonic regurgitation. There is no pulmonic stenosis. Pericardium: There is no pericardial effusion. A pericardial fat pad is visualized. Aorta: There is no dilatation of the ascending aorta. There is no dilatation of the aortic arch. There is no dilation of the aortic root. Pulmonary Artery: The main pulmonary artery appears normal. Venous: The venous system is not well visualized. Contrast: Definity was used to optimize study. A total of 4 ml used. Intravenous contrast was used to enhance endocardial border definition. Summary: There was not any prior study for comparison. Conclusions Global left ventricular wall motion and contractility are within normal limits. There is normal left ventricular systolic function. The estimated ejection fraction is 55-60%. The right ventricle is not well visualized. There is no evidence of aortic valve thickening. There is no evidence of aortic stenosis. There is no evidence of mitral regurgitation. There is no evidence of tricuspid valve regurgitation. There is no pericardial effusion. Measurements Name Value Normal Range RVIDd (AP) 2D 2.1 cm (0.9 - 2.6) IVSd (2D) 0.9 cm (0.6 - 1) LVPWd (2D) 1 cm (0.6 - 1) LVIDd (2D) 3.6 cm (3.6 - 5.4) LVIDs (2D) 2.4 cm - LV FS (2D) 33 % (25 - 45) Aortic Annulus 1.8 cm (1.4 - 2.6) Ao root diameter (2D) 3.1 cm (2.1 - 3.5) Ascending Ao 3.2 cm (2.1 - 3.4) Aortic arch 2.4 cm (1.8 - 3.4) Descending Ao 0.6 cm - LA dimension (AP) 2D 2.9 cm (2.3 - 3.8) Name Value Normal Range MV E-wave Vmax 1 m/sec - MV deceleration time 229 msec - MV A-wave Vmax 1 m/sec - MV E:A ratio 1 ratio - LV septal e' Vmax 0.07 m/sec - LV lateral e' Vmax 0.09 m/sec - LV E:e' septal ratio 14.28 ratio - LV E:e' lateral ratio 11.11 ratio - Name Value Normal Range AV Vmax 1.3 m/sec - AV VTI 23.8 cm - AV peak gradient 7 mmHg - AV mean gradient 3 mmHg - LVOT Vmax 1.2 m/sec - LVOT VTI 24.5 cm - LVOT peak gradient 6 mmHg - LVOT mean gradient 3 mmHg - Name Value Normal Range PV Vmax 1 m/sec - PV peak gradient 4 mmHg -
[2018-11-19] MEDS: cefTRIAXone(*) 1 GM in NS 0.9% 50 ML* 50 ML IVPB SCH (17:13)
[2018-11-19] MEDS: Atorvastatin* 20 MG TAB PO SCH (23:02)
[2018-11-19] MEDS: Divalproex ER TAB(*) 500 MG PO SCH (23:08)
[2018-11-20] MEDS: Acetaminophen TAB* 325 MG PO PRN ×2 (01:03→06:46)
[2018-11-20] MEDS: DOXYcycline IV* 100 MG in NS 0.9% 250 ML* 250 ML IVPB SCH ×2 (04:47→18:06)
[2018-11-20] MEDS: Levothyroxine TAB* 75 MCG TAB PO SCH (06:47)
[2018-11-20] MEDS: Heparin VIAL(*) 5000 UNITS/ML VIAL (FIVE THOUSAND) SUBCUT SCH ×3 (06:47→21:31)
[2018-11-20] MEDS: Insulin LISPRO* 1 UNITS UNIT SUBCUT SCH ×4 (07:49→20:42)
[2018-11-20] MEDS: Chlorhexidine MOUTHWASH 0.12%* 15 ML UDC SWISH SPIT SCH (10:21)
[2018-11-20] MEDS: predniSONE TAB* 20 MG PO SCH (10:21)
[2018-11-20] MEDS: guaiFENesin ER TAB 600 MG PO SCH ×2 (10:22→20:20)
[2018-11-20] MEDS: levETIRAcetam TAB* 500 MG PO SCH ×2 (10:22→20:20)
[2018-11-20] MEDS: Polyethylene Glycol 3350* 17 GM PACKET PO SCH (10:22)
[2018-11-20] MEDS: Cetirizine* 10 MG TAB PO SCH (10:22)
--- NOTE | 2018-11-20 13:05 | PN ---
Subjective Date of Service: 11/20/18 Interval History: Patient A+O watching TV comfortably. aid eat bedside and said he seems to be doing a little better today but she has noted a continued harsh cough. Ambulating to bathroom with minimal assistance. He offers no complaints. Objective Active Medications: Acetaminophen (Tylenol Tab*) 650 mg PO Q6H PRN PRN Reason: FEVER/PAIN Last Admin: 11/20/18 06:46 Dose: 650 mg Albuterol (Ventolin 2.5 Mg/3 Ml Neb.Page*) 2.5 mg INH Q2H PRN PRN Reason: SOB/WHEEZING Albuterol/Ipratropium (Duoneb (Albuterol 2.5 Mg/Ipratropium 0.5 Mg)) 1 neb INH [id number] AWAKE PRN PRN Reason: SHORTNESS OF BREATH Atorvastatin Calcium (Lipitor*) 20 mg PO BEDTIME [facility] Last Admin: 11/19/18 23:02 Dose: 20 mg Benzonatate (Tessalon Cap*) 100 mg PO BID PRN PRN Reason: COUGH Cetirizine HCl (Zyrtec*) 10 mg PO DAILY [facility] Last Admin: 11/20/18 10:22 Dose: 10 mg Chlorhexidine Gluconate (Peridex Mouth Wash 0.12%*) 10 ml SWISH SPIT DAILY [facility] Last Admin: 11/20/18 10:21 Dose: 10 ml Dextrose (D50w Syringe 50 Ml*) 12.5 gm IV PUSH .FOR FS < 60 - SS PRN PRN Reason: FS < 60 Divalproex Sodium (Depakote Er Tab(*)) 1,500 mg PO BEDTIME [facility] Last Admin: 11/19/18 23:08 Dose: 1,500 mg Guaifenesin (Mucinex*) 1,200 mg PO BID [facility] Last Admin: 11/20/18 10:22 Dose: 1,200 mg Heparin Sodium (Porcine) (Heparin Vial(*)) 5,000 units SUBCUT Q8HR [facility] Last Admin: 11/20/18 06:47 Dose: 5,000 units Doxycycline Hyclate 100 mg/ (Sodium Chloride) 250 mls @ 250 mls/hr IVPB Q12H [facility] Last Admin: 11/20/18 04:47 Dose: 250 mls/hr Ceftriaxone Sodium 1 gm/ (Sodium Chloride) 50 mls @ 200 mls/hr IVPB Q24H [facility] Last Admin: 11/19/18 17:13 Dose: 200 mls/hr Insulin Human Lispro (Humalog*) 0 units SUBCUT ACHS [facility]; Protocol Last Admin: 11/20/18 07:49 Dose: Not Given Levetiracetam (Keppra Tab*) 500 mg PO DAILY [facility] Last Admin: 11/20/18 10:22 Dose: 500 mg Levetiracetam (Keppra Tab*) 750 mg PO BEDTIME [facility] Last Admin: 11/19/18 23:03 Dose: 750 mg Levothyroxine Sodium (Synthroid Tab*) 50 mcg PO 0600 [facility] Ondansetron HCl (Zofran Inj*) 4 mg IV Q6H PRN PRN Reason: NAUSEA Polyethylene Glycol/Electrolytes (Miralax*) 17 gm PO DAILY [facility] Last Admin: 11/20/18 10:22 Dose: 17 gm Polyethylene Glycol/Electrolytes (Miralax*) 17 gm PO BID PRN PRN Reason: CONSTIPATION Prednisone (Deltasone Tab*) 60 mg PO DAILY [facility] Last Admin: 11/20/18 10:21 Dose: 60 mg Vital Signs - 8 hr 11/20/18 11/20/18 11/20/18 08:00 08:08 11:42 Temperature 96.5 F Pulse Rate 62 61 Respiratory 24 20 20 Rate Blood Pressure 116/78 90/64 (mmHg) O2 Sat by Pulse 96 95 Oximetry 11/20/18 12:39 Temperature Pulse Rate Respiratory Rate Blood Pressure 107/69 (mmHg) O2 Sat by Pulse Oximetry Oxygen Devices in Use Now: Nasal Cannula Appearance: 58 yo developmental male with down syndrome A+O in NAD watching TV, follows commands Eyes: No Scleral Icterus, PERRLA Ears/Nose/Mouth/Throat: Mucous Membranes Moist Neck: NL Appearance and Movements; NL JVP Respiratory: Symmetrical Chest Expansion and Respiratory Effort, - - scattered course rhonchi - good aeration throughout, easy respirations Cardiovascular: NL Sounds; No Murmurs; No JVD, RRR, No Edema Abdominal: NL Sounds; No Tenderness; No Distention Extremities: No Edema Skin: No Rash or Ulcers, No Nodules or Sclerosis Neurological: Alert and Oriented x 3, NL Sensation, NL Gait, NL Muscle Strength and Tone Lines/Tubes/Other Access: Clean, Dry and Intact Peripheral IV Nutrition: Taking PO's Result Diagrams: 11/19/18 06:17 11/19/18 06:17 Microbiology and Other Data: Microbiology 11/18/18 20:15 Legionella Urinary Antigen - Final Urine Negative Legionella Antigen Streptococcus pneumoniae Ag Screen - Final Negative S. pneumo Antigen 11/18/18 10:23 Influenza Types A,B Antigen - Final Nasopharyngeal Specimen received for Influenza A/B Molecular testing Assess/Plan/Problems-Billing Assessment: 58 yo male with a PMH of down syndrome, IBS, hypothyroidism and epilepsy who presented on 11/18 with 3 days of worsening SOB, cough found to be hypoxic. - Patient Problems (1) Acute respiratory failure with hypoxia Comment: - suspect viral illness vs bacterial pna. Influenza negative. - stable, improving slowly. Titrate oxygen as tolerates - currently on 2L NC. - chest xray on admission negative; repeat chest xray 10/22 showing interstial edema with possible CHF. IVFs stopped. Repeat chest xray in am - echo wnls - blood cx NTD - urine antigen s. pneumn and leginella negative - try to obtain sputum cx. - continue ceftriaxone/Doxy (2) Diabetes Comment: no previous dx. hgA1c 6.8 Blood sugars 115-200's - he is on steroids but suspect he has been uncontrolled FSBG and sliding scale and monitor - will most likely need medication going home and close follow up with PCP (3) Down syndrome Comment: - supportive treatment (4) Seizure disorder Comment: - seizure precautions - continue home dose keppra and Depakote (5) Hypothyroid Comment: - TSH suppressed - decrease synthroid to 50 mch and repeat 8 weeks as outpt (6) DVT prophylaxis Comment: HSQ (7) Patient is full code Status and Disposition: inpatient with hypoxic resp failure suspected to be secondary to upper respiratory illness, slow to improve. lives in a alf.
[2018-11-20] MEDS: cefTRIAXone(*) 1 GM in NS 0.9% 50 ML* 50 ML IVPB SCH (17:10)
[2018-11-20] MEDS: Divalproex ER TAB(*) 500 MG PO SCH (20:19)
[2018-11-20] MEDS: Atorvastatin* 20 MG TAB PO SCH (20:20)
[2018-11-21] MEDS: DOXYcycline IV* 100 MG in NS 0.9% 250 ML* 250 ML IVPB SCH (05:35)
[2018-11-21] MEDS: Heparin VIAL(*) 5000 UNITS/ML VIAL (FIVE THOUSAND) SUBCUT SCH ×3 (05:39→21:38)
[2018-11-21] MEDS: Levothyroxine TAB* 50 MCG TAB PO SCH (05:40)
[2018-11-21 06:17] LABS: ABS Basophils 0 10^3/ul (0-0.2); ABS Eosinophils 0 10^3/ul (0-0.6); ABS Lymphocytes 2.9 10^3/ul (1.0-4.8); ABS Monocytes 0.5 10^3/ul (0-0.8); ABS Neutrophils 5.8 10^3/ul (1.5-7.7); ABS Nucleated RBC 0 10^3/ul; Eosinophil % 0 %; Hematocrit 46 % (36-46); Hemoglobin 15.1 g/dL (14.0-18.0); Lymphocyte % 31.5 %; Mean Corpuscular HGB Conc 33 g/dL (31-36); Mean Corpuscular Hemoglobin 32 pg (27-31); Mean Corpuscular Volume 98 fL (80-94); Mean Platelet Volume 8.4 fL (7.4-10.4); Nucleated Red Blood Cells % 0.1; Platelet Count 170 10^3/uL (150-450); Red Blood Count 4.68 10^6 /uL (4.18-5.48); Red Cell Distribution Width 14 % (10.5-15); White Blood Count 9.3 10^3/uL (3.5-10.8)
[2018-11-21 06:38] LABS: Calcium 8.7 mg/dL (8.6-10.3); Potassium 4.4 mmol/L (3.5-5.0)
[2018-11-21 06:44] LABS: BUN/Creatinine Ratio 16.7 (8-20); EGFR African American 151.1 (>60); EGFR Non-African American 124.9 (>60)
[2018-11-21] MEDS: Insulin LISPRO* 1 UNITS UNIT SUBCUT SCH ×4 (08:57→21:12)
[2018-11-21] MEDS: guaiFENesin ER TAB 600 MG PO SCH ×2 (10:05→20:57)
[2018-11-21] MEDS: levETIRAcetam TAB* 500 MG PO SCH ×2 (10:05→20:57)
[2018-11-21] MEDS: Polyethylene Glycol 3350* 17 GM PACKET PO SCH (10:06)
[2018-11-21] MEDS: Cetirizine* 10 MG TAB PO SCH (10:06)
[2018-11-21] MEDS: Chlorhexidine MOUTHWASH 0.12%* 15 ML UDC SWISH SPIT SCH (10:06)
[2018-11-21] MEDS: predniSONE TAB* 20 MG PO SCH (10:06)
--- NOTE | 2018-11-21 14:01 | PN ---
Subjective Date of Service: 11/21/18 Interval History: Pt is at baseline minimally verbal. seen with his delivery consultant from [facility]. Pt would not talk at all today during eval. As per d/c RN cough noted, pt sleeps a lot. Still requires 02. Objective Active Medications: Acetaminophen (Tylenol Tab*) 650 mg PO Q6H PRN PRN Reason: FEVER/PAIN Last Admin: 11/20/18 06:46 Dose: 650 mg Albuterol (Ventolin 2.5 Mg/3 Ml Neb.Page*) 2.5 mg INH Q2H PRN PRN Reason: SOB/WHEEZING Albuterol/Ipratropium (Duoneb (Albuterol 2.5 Mg/Ipratropium 0.5 Mg)) 1 neb INH [id number] AWAKE PRN PRN Reason: SHORTNESS OF BREATH Atorvastatin Calcium (Lipitor*) 20 mg PO BEDTIME [facility] [place] Last Admin: 11/20/18 20:20 Dose: 20 mg Benzonatate (Tessalon Cap*) 100 mg PO BID PRN PRN Reason: COUGH Cetirizine HCl (Zyrtec*) 10 mg PO DAILY [facility] [place] Last Admin: 11/21/18 10:06 Dose: 10 mg Chlorhexidine Gluconate (Peridex Mouth Wash 0.12%*) 10 ml SWISH SPIT DAILY [facility] [place] Last Admin: 11/21/18 10:06 Dose: 10 ml Dextrose (D50w Syringe 50 Ml*) 12.5 gm IV PUSH .FOR FS < 60 - SS PRN PRN Reason: FS < 60 Divalproex Sodium (Depakote Er Tab(*)) 1,500 mg PO BEDTIME [facility] [place] Last Admin: 11/20/18 20:19 Dose: 1,500 mg Doxycycline Hyclate (Vibramycin Cap(*)) 100 mg PO BID [facility] [place] Guaifenesin (Mucinex*) 1,200 mg PO BID [facility] [place] Last Admin: 11/21/18 10:05 Dose: 1,200 mg Heparin Sodium (Porcine) (Heparin Vial(*)) 5,000 units SUBCUT Q8HR [facility] [place] Last Admin: 11/21/18 12:36 Dose: 5,000 units Ceftriaxone Sodium 1 gm/ (Sodium Chloride) 50 mls @ 200 mls/hr IVPB Q24H [facility] [place] Last Admin: 11/20/18 17:10 Dose: 200 mls/hr Insulin Human Lispro (Humalog*) 0 units SUBCUT ACHS [facility] [place]; Protocol Last Admin: 11/21/18 12:35 Dose: 3 units Levetiracetam (Keppra Tab*) 500 mg PO DAILY [facility] [place] Last Admin: 11/21/18 10:05 Dose: 500 mg Levetiracetam (Keppra Tab*) 750 mg PO BEDTIME [facility] [place] Last Admin: 11/20/18 20:20 Dose: 750 mg Levothyroxine Sodium (Synthroid Tab*) 50 mcg PO 0600 [facility] [place] Last Admin: 11/21/18 05:40 Dose: 50 mcg Ondansetron HCl (Zofran Inj*) 4 mg IV Q6H PRN PRN Reason: NAUSEA Polyethylene Glycol/Electrolytes (Miralax*) 17 gm PO DAILY [facility] [place] Last Admin: 11/21/18 10:06 Dose: 17 gm Polyethylene Glycol/Electrolytes (Miralax*) 17 gm PO BID PRN PRN Reason: CONSTIPATION Prednisone (Deltasone Tab*) 60 mg PO DAILY [facility] [place] Last Admin: 11/21/18 10:06 Dose: 60 mg Vital Signs - 8 hr 11/21/18 11/21/18 11/21/18 07:41 08:00 11:42 Temperature 97.1 F 96.6 F Pulse Rate 65 80 69 Respiratory 16 18 16 Rate Blood Pressure 132/73 115/67 (mmHg) O2 Sat by Pulse 97 96 95 Oximetry Oxygen Devices in Use Now: Nasal Cannula Appearance: 58 yo M in nAD, aAO, nonverbal, folows simple commands with encouragement Eyes: No Scleral Icterus, PERRLA Ears/Nose/Mouth/Throat: NL Teeth, Lips, Gums, Mucous Membranes Moist Neck: NL Appearance and Movements; NL JVP, Trachea Midline Respiratory: Symmetrical Chest Expansion and Respiratory Effort, - - diffuse rhonchi and wheezes Cardiovascular: NL Sounds; No Murmurs; No JVD, RRR Abdominal: NL Sounds; No Tenderness; No Distention Lymphatic: No Cervical Adenopathy, No Axillary Adenopathy Extremities: No Edema, No Clubbing, Cyanosis Skin: No Rash or Ulcers, No Nodules or Sclerosis Neurological: NL Muscle Strength and Tone Result Diagrams: 11/21/18 05:53 11/21/18 05:53 Microbiology and Other Data: Microbiology 11/18/18 20:15 Legionella Urinary Antigen - Final Urine Negative Legionella Antigen Streptococcus pneumoniae Ag Screen - Final Negative S. pneumo Antigen 11/18/18 10:23 Influenza Types A,B Antigen - Final Nasopharyngeal Specimen received for Influenza A/B Molecular testing Assess/Plan/Problems-Billing Assessment: 58 yo male with a PMH of down syndrome, IBS, hypothyroidism and epilepsy who presented on 11/18 with 3 days of worsening SOB, cough found to be hypoxic. - Patient Problems (1) Acute respiratory failure with hypoxia Comment: - clinically pt has b/l pneumonia-likely bacterial. Influenza negative. - stable, improving slowly. Titrate oxygen as tolerates - currently on 2L NC. - chest xray on admission negative; repeat chest xray 10/22 showing interstial edema with possible CHF. IVFs stopped. - echo wnl - blood cx NTD - urine antigen s. pneumo and leginella negative - continue ceftriaxone/Doxy (2) Diabetes Comment: no previous dx. hgA1c 6.8 Blood sugars 115-200's - he is on steroids but suspect he has been uncontrolled FSBG and sliding scale and monitor - will most likely need medication going home and close follow up with PCP (3) Down syndrome Comment: - supportive treatment (4) Hypothyroid Comment: - TSH suppressed - decrease synthroid to 50 mch and repeat 8 weeks as outpt (5) Seizure disorder Comment: - seizure precautions - continue home dose keppra and Depakote (6) DVT prophylaxis Comment: HSQ (7) Patient is full code Status and Disposition: inpatient with hypoxic resp failure suspected , needs to be weaned off 02 prior to returning to assisted.
[2018-11-21] MEDS: Acetaminophen TAB* 325 MG PO PRN (16:16)
[2018-11-21] MEDS: cefTRIAXone(*) 1 GM in NS 0.9% 50 ML* 50 ML IVPB SCH (17:31)
[2018-11-21] MEDS: DOXYcycline CAP(*) 100 MG PO SCH (20:57)
[2018-11-21] MEDS: Atorvastatin* 20 MG TAB PO SCH (20:57)
[2018-11-21] MEDS: Divalproex ER TAB(*) 500 MG PO SCH (20:58)
[2018-11-22 04:11] VITALS: BP 145/75
[2018-11-22] MEDS: Heparin VIAL(*) 5000 UNITS/ML VIAL (FIVE THOUSAND) SUBCUT SCH (06:11)
[2018-11-22] MEDS: Levothyroxine TAB* 50 MCG TAB PO SCH (06:11)
[2018-11-22] MEDS: Insulin LISPRO* 1 UNITS UNIT SUBCUT SCH (08:50)
[2018-11-22] MEDS: Polyethylene Glycol 3350* 17 GM PACKET PO SCH (09:32)
[2018-11-22] MEDS: Cetirizine* 10 MG TAB PO SCH (09:32)
[2018-11-22] MEDS: levETIRAcetam TAB* 500 MG PO SCH (09:32)
[2018-11-22] MEDS: guaiFENesin ER TAB 600 MG PO SCH (09:32)
[2018-11-22] MEDS: DOXYcycline CAP(*) 100 MG PO SCH (09:32)
[2018-11-22] MEDS: Chlorhexidine MOUTHWASH 0.12%* 15 ML UDC SWISH SPIT SCH (09:32)
--- NOTE | 2018-11-22 14:01 | DS ---
CC: Dr. Lewis * DISCHARGE SUMMARY: DATE OF ADMISSION: 11/18/18 DATE OF DISCHARGE: 11/22/18 PRIMARY CARE PROVIDER: Dr. Lewis. DISCHARGE DIAGNOSES: 1. Acute hypoxemic respiratory failure due to clinical pneumonia, although the patient had no documented infiltrate on his chest x-ray. 2. Bronchospasm. 3. New diagnosis of diabetes mellitus. SECONDARY DIAGNOSES: 1. History of Down syndrome. 2. History of seizure disorder. 3. Irritable bowel syndrome. 4. Hypothyroidism. 5. Hyperlipidemia. 6. Strabismus. 7. Obesity. MEDICATIONS AT DISCHARGE: Include: 1. Acetaminophen on a p.r.n. basis. 2. Maalox on a p.r.n. basis. 3. Bacitracin ointment on a p.r.n. basis, apply to skin. 4. Dulcolax 10 mg every 6 hours p.r.n. 5. Calamine lotion p.r.n. to itchy skin. 6. Chlorhexidine mouthwash daily. 7. Depakote ER 1500 mg at bedtime. 8. Guaifenesin 10 mL every 4 hours p.r.n. 9. Ibuprofen 400 mg every 4 hours p.r.n. 10. Keppra 500 mg b.i.d. and 750 mg at bedtime. 11. Levothyroxine 50 mcg daily. 12. Loratadine 10 mg daily. 13. Multivitamin 1 tablet daily. 14. MiraLAX 17 g daily p.r.n. 15. Zocor 40 mg at bedtime. 16. Zinc oxide topical apply to affected area b.i.d. p.r.n. 17. Cefdinir 300 mg b.i.d. for a total of 4 days. 18. Doxycycline 100 mg b.i.d. for a total of 4 days. 19. Prednisone 40 mg daily for 2 days, then 20 mg daily for 2 days, then 10 mg daily for 2 days, then stop. HOSPITALIZATION COURSE: Tacos Ji is a 58-year-old male with history of Down syndrome, who presented to the hospital complaining of cough and wheezing. Although the patient's chest x-ray did not show any infiltrates, clinically, the patient was diagnosed with bacterial pneumonia. He was treated with ceftriaxone and doxycycline with good results. The patient also had bronchospasm and acute respiratory failure. He was placed on steroids and supplemental oxygen. By the time of discharge, he did not require oxygen anymore. Due to steroid use, he became hyperglycemic. Subsequently, hemoglobin A1c was checked and it was 6.8. Throughout the patient's hospital stay, he required insulin sliding scale only. 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 I suspect that after the patient is off his prednisone taper, his diabetes will be able to be controlled with diet only. The patient is recommended to follow up with his primary care provider, Dr. Lewis, in 4 to 7 days after he is off his prednisone to evaluate for his diabetes control and possible need of oral agents. For the time being, the patient is recommended to be continued on diabetic diet. LABORATORY DATA AND STUDIES PERFORMED DURING THE HOSPITAL STAY: Included on , sodium of 136, potassium 4.4, chloride 99, carbon dioxide 31, BUN 11, creatinine 0.66. On 11/21/18, white blood cell count of 9.3, hemoglobin of 15.1 , hematocrit of 46, and platelets of 170. Hemoglobin A1c was 6.8 and the patient's sugar level in the past 24 hours last between 95 and 173. The patient's TSH level was 0.24 during his hospital stay at admission and the patient's levothyroxine dose was adjusted appropriately from 75 mcg daily to 50 mcg daily. The patient had a transthoracic echocardiogram obtained on 11/19/18, which showed EF of 55% to 60% with left ventricular wall motion and contractility within normal limits and no significant valvular abnormalities. Most recent portable chest x-ray noted on 11/19/18, impression: "Cardiomegaly with interstitial edema consistent with CHF. Small pleural effusions are noted. " Microbiology testing negative for legionella antigen and negative for Strep pneumo antigen. Blood cultures no growth. Influenza rapid testing negative for influenza B and A. DISCHARGE INSTRUCTIONS: At discharge, the patient is recommended to follow up with Dr. Bhaskar Lewis, in approximately 4 to 7 days in regard to the patient' s new diagnosis of diabetes and glycemic control. The patient is recommended to have a TSH repeated in 4 to 8 weeks due to the patient's TSH being low during the hospital stay and his levothyroxine dose adjusted from 75 to 50 mcg daily. PHYSICAL EXAMINATION: At the time of discharge, blood pressure 145/75, heart rate 64 and regular, respiratory rate 17, oxygen saturation 93% on room air, temperature 96.8. General: The patient is a very pleasant 58-year-old male with BMI of 38. The patient is in no acute distress. The patient has limited verbalization and occasionally is able to converse with limited vocabulary. He is oriented to self. HEENT: Head: Atraumatic, normocephalic. Eyes: Pupils are equal, reactive to light and accommodation. Oropharynx is clear. Mucosa moist. Neck: Supple. No JVD. No bruits bilaterally. Cardiovascular: Regular rate and rhythm. No murmur. Respiratory: Rhonchi in left lung base, otherwise clear. Abdomen: Soft, nontender. Bowel sounds are present in all 4 quadrants. Extremities: There is trace bilateral pedal edema. Pulses are +2 bilaterally. There is no clubbing or cyanosis. On neuro evaluation, speech is clear, but limited verbalization. Cranial nerves II through XII grossly intact. Motor strength is 5/5 bilaterally. The patient has strabismus and this is his baseline. CONDITION: The patient's condition at discharge is stable. Please note that this is a short summary of the patient's hospitalization. Please refer to further medical records for details. TIME SPENT: Approximately 50 minutes was spent on the patient's discharge. [id number]/[facility] #: [id number] [facility]
[2018-11-23] MEDS ORDERED: predniSONE TAB* 20 MG PO SCH (09:00)
== END 2018-11-22 12:10 | disposition home or self-care (01) | DRG 193 ==
LOC: ED 10:13 → MED 16:11 → OBSVTOIN 11-19 16:00
PROVIDERS: ADMIT Internal Medicine; ATTEND Internal Medicine
DX: J15.9 Unspecified bacterial pneumonia (principal); J96.01 Acute respiratory failure with hypoxia; E03.9 Hypothyroidism, unspecified; E78.00 Pure hypercholesterolemia, unspecified; E78.5 Hyperlipidemia, unspecified; K58.9 Irritable bowel syndrome, unspecified; H50.9 Unspecified strabismus; F79 Unspecified intellectual disabilities; G40.909 Epilepsy, unspecified, not intractable, without status epilepticus; E66.9 Obesity, unspecified; E11.65 Type 2 diabetes mellitus with hyperglycemia; T38.0X5A Adverse effect of glucocorticoids and synthetic analogues, initial encounter; Y92.239 Unspecified place in hospital as the place of occurrence of the external cause; Z88.0 Allergy status to penicillin; Z88.2 Allergy status to sulfonamides; Q90.9 Down syndrome, unspecified; Z68.38 Body mass index [BMI] 38.0-38.9, adult
CPT/HCPCS: 36415; 71045; 71046; 80048; 80053; 82306; 83036; 83605; 83735; 84443; 84484; 85025; 86140; 87040; 87899; 93005; 93306; 94640; 99285; A9270-GY; C8929; J0696; J1644; J2930; J7512

== ENCOUNTER 2022-07-19 08:36 | Inpatient (IN) ==
[2022-07-19 09:54] LABS: ABS Monocytes 0.8 10^3/ul (0-0.8); ABS Neutrophils 3.2 10^3/ul (1.5-7.7); Eosinophil % 0.1 %; Hematocrit 49 % (42-52); Hemoglobin 16.3 g/dL (14.0-18.0); Lymphocyte % 19.8 %; Mean Corpuscular HGB Conc 33 g/dL (31-36); Mean Corpuscular Hemoglobin 32 pg (27-31); Mean Corpuscular Volume 96 fL (80-94); Mean Platelet Volume 8.3 fL (7.4-10.4); Nucleated Red Blood Cells % 0.1; Platelet Count 205 10^3/uL (150-450); Red Blood Count 5.11 10^6 /uL (4.18-5.48); Red Cell Distribution Width 14 % (10-15); White Blood Count 4.9 10^3/uL (3.5-10.8)
[2022-07-19 09:55] LABS: Venous Bicarbonate HCO3 28.1 mmol/L (24-28)
[2022-07-19] MEDS ORDERED: Dexamethasone IV 4 MG/ML VIAL 1 ml VIAL IV SLOW PU ONE (10:05)
[2022-07-19] MEDS ORDERED: Albuterol 2.5mg/3 ml (0.083%) NEB.SOLN INH ONE (10:05)
[2022-07-19 10:19] LABS: Activated Partial Thrombo Time 33.6 seconds (26.0-38.0); INR 1.18 (0.89-1.11)
[2022-07-19 10:29] LABS: Albumin 3.9 g/dL (3.2-5.2); Albumin/Globulin Ratio 1.1 (1-3); C Reactive Protein 36.78 mg/L (<8.01); Calcium 9.2 mg/dL (8.6-10.3); Globulin 3.4 g/dL (2-4); Potassium 4.5 mmol/L (3.5-5.0); Total Bilirubin 0.3 mg/dL (0.2-1.0); Total Protein 7.3 g/dL (6.4-8.9); eGFR CKD-EPI 71.1 (>60)
[2022-07-19 11:25] LABS: High Sensitivity Troponin 1 Hr 49 pg/mL (<20)
[2022-07-19] MEDS ORDERED: NS 0.9% 1000 ml BAG 1,000 ML IV ONE (12:49)
[2022-07-19 16:49] LABS: Venous Bicarbonate HCO3 26.4 mmol/L (24-28)
[2022-07-19] MEDS ORDERED: Lactated Ringers 1000 ml BAG 1,000 ML IV ONE (16:56)
[2022-07-19] MEDS ORDERED: Remdesivir 100 mg Vial 200 MG in NS 0.9% 250 ml 210 ML IV ONE (18:02)
[2022-07-19] MEDS ORDERED: Albuterol/Ipratropium NEB.SOL (2.5/0.5 MG) 3 ML NEB.SOLN INH PRN (18:04)
[2022-07-19 21:10] LABS: Albumin 3.4 g/dL (3.2-5.2); Albumin/Globulin Ratio 1.1 (1-3); Calcium 8.5 mg/dL (8.6-10.3); Potassium 4.5 mmol/L (3.5-5.0); Total Bilirubin 0.3 mg/dL (0.2-1.0); Total Protein 6.4 g/dL (6.4-8.9); eGFR CKD-EPI 98.4 (>60)
[2022-07-19 21:12] LABS: INR 1.24 (0.89-1.11)
[2022-07-19] MEDS: Enoxaparin 40 MG/0.4 ML SYR SUBCUT SCH (22:44)
[2022-07-20 09:27] LABS: ABS Lymphocytes 1.8 10^3/ul (1.0-4.8); ABS Monocytes 0.8 10^3/ul (0-0.8); ABS Neutrophils 5.1 10^3/ul (1.5-7.7); Hematocrit 43 % (42-52); Hemoglobin 13.8 g/dL (14.0-18.0); Lymphocyte % 23.1 %; Mean Corpuscular HGB Conc 33 g/dL (31-36); Mean Corpuscular Hemoglobin 32 pg (27-31); Mean Corpuscular Volume 97 fL (80-94); Mean Platelet Volume 8.2 fL (7.4-10.4); Nucleated Red Blood Cells % 0.1; Platelet Count 128 10^3/uL (150-450); Red Blood Count 4.36 10^6 /uL (4.18-5.48); Red Cell Distribution Width 14 % (10-15); White Blood Count 7.7 10^3/uL (3.5-10.8)
[2022-07-20 09:36] LABS: INR 1.2 (0.89-1.11)
[2022-07-20] MEDS ORDERED: Albuterol/Ipratropium NEB.SOL (2.5/0.5 MG) 3 ML NEB.SOLN INH SCH (10:00)
[2022-07-20 10:04] LABS: Albumin 3.2 g/dL (3.2-5.2); Albumin/Globulin Ratio 1.2 (1-3); Calcium 8.5 mg/dL (8.6-10.3); Globulin 2.7 g/dL (2-4); Potassium 4.4 mmol/L (3.5-5.0); Total Bilirubin 0.3 mg/dL (0.2-1.0); Total Protein 5.9 g/dL (6.4-8.9); eGFR CKD-EPI 101.6 (>60)
[2022-07-20] MEDS: Polyethylene Glycol 3350 17 GM PACKET PO SCH (10:30)
[2022-07-20] MEDS: Albuterol/Ipratropium NEB.SOL (2.5/0.5 MG) 3 ML NEB.SOLN INH SCH ×2 (12:12→19:02)
[2022-07-20] MEDS ORDERED: Haloperidol 5 mg/ml SDV IV/IM 5 MG/ML AMP IV SLOW PU ONE (20:49)
[2022-07-20] MEDS ORDERED: Dexmedetomidine 1,000 MCG in NS 0.9% 250 ml 240 ML IV SCH ×3 (21:00→23:12)
[2022-07-20] MEDS ORDERED: Valproic Acid IV 1,000 MG in NS 0.9% 100 ml BAG 100 ML IVPB ONE (21:54)
[2022-07-20] MEDS ORDERED: levETIRAcetam IV 750 MG in NS 0.9% 100 ml BAG 100 ML IVPB ONE (21:54)
[2022-07-20] MEDS: Remdesivir 100 mg Vial 100 MG in NS 0.9% 250 ml 230 ML IV SCH (22:10)
[2022-07-20] MEDS ORDERED: Iodixanol (CONTRAST) 320 MG/ML 100 ML SDV IV ONE (22:16)
[2022-07-20] MEDS ORDERED: Piperacillin/Tazobac ADVAN 3.375 GM in NS 0.9% 100 ml BAG 100 ML IV ONE (22:53)
[2022-07-20] MEDS ORDERED: Zosyn per Pharmacy NOTE FOLLOW UP SCH (23:00)
[2022-07-20] MEDS: Enoxaparin 40 MG/0.4 ML SYR SUBCUT SCH (23:09)
[2022-07-21] MEDS: DOXYcycline 100 MG in NS 0.9% 250 ml 250 ML IVPB SCH ×3 (01:32→23:45)
[2022-07-21] MEDS: Albuterol/Ipratropium NEB.SOL (2.5/0.5 MG) 3 ML NEB.SOLN INH SCH ×4 (01:33→19:09)
[2022-07-21] MEDS: ZOSYN 3.375 GM Q8H per EXTENDED INFUSION IV SCH ×3 (04:05→21:45)
[2022-07-21 04:40] LABS: INR 1.32 (0.89-1.11)
[2022-07-21 04:47] LABS: ABS Neutrophils 0.4 10^3/ul (1.5-7.7); Hematocrit 39 % (42-52); Hemoglobin 12.8 g/dL (14.0-18.0); Mean Corpuscular HGB Conc 33 g/dL (31-36); Mean Corpuscular Hemoglobin 32 pg (27-31); Mean Corpuscular Volume 97 fL (80-94); Mean Platelet Volume 8.4 fL (7.4-10.4); Platelet Count 100 10^3/uL (150-450); Red Blood Count 3.98 10^6 /uL (4.18-5.48); Red Cell Distribution Width 14 % (10-15)
[2022-07-21 05:32] LABS: Albumin 2.7 g/dL (3.2-5.2); Albumin/Globulin Ratio 1.3 (1-3); Calcium 7.9 mg/dL (8.6-10.3); Globulin 2.1 g/dL (2-4); Potassium 4.2 mmol/L (3.5-5.0); Total Bilirubin 0.3 mg/dL (0.2-1.0); Total Protein 4.8 g/dL (6.4-8.9); eGFR CKD-EPI 76.5 (>60)
[2022-07-21] MEDS ORDERED: NS 0.9% IVPB SCH (09:00)
[2022-07-21] MEDS ORDERED: VALPROIC ACID IVPB SCH (09:00)
[2022-07-21] MEDS: Polyethylene Glycol 3350 17 GM PACKET PO SCH (09:35)
[2022-07-21] MEDS: levETIRAcetam IV 750 MG in NS 0.9% 100 ML IVPB SCH ×2 (09:53→19:56)
[2022-07-21] MEDS: Levothyroxine 100 MCG/5 ML VIAL IV SCH (10:01)
[2022-07-21] MEDS: Dexamethasone IV 4 MG/ML VIAL 1 ml VIAL IV SLOW PU SCH (10:01)
[2022-07-21] MEDS: Pantoprazole VIAL 40 MG VIAL IV SCH ×2 (10:02→19:56)
[2022-07-21 11:51] LABS: ABS Lymphocytes 0.5 10^3/ul (1.0-4.8); ABS Monocytes 0.1 10^3/ul (0-0.8); Eosinophil % 0.2 %; Lymphocyte % 50.3 %; Nucleated Red Blood Cells % 0.1
[2022-07-21 13:11] LABS: Hematocrit 38 % (42-52); Hemoglobin 12.5 g/dL (14.0-18.0)
[2022-07-21] MEDS ORDERED: Furosemide 20 mg/2 ml IV VIAL IV SLOW PU ONE (14:04)
[2022-07-21] MEDS: NS 0.9% IVPB SCH ×2 (17:42→23:45)
[2022-07-21] MEDS: VALPROIC ACID IVPB SCH ×2 (17:42→23:45)
[2022-07-21] MEDS: Enoxaparin 40 MG/0.4 ML SYR SUBCUT SCH (19:55)
[2022-07-21] MEDS: Remdesivir 100 mg Vial 100 MG in NS 0.9% 250 ml 230 ML IV SCH (20:23)
[2022-07-22] MEDS: DOXYcycline 100 MG in NS 0.9% 250 ml 250 ML IVPB SCH ×2 (00:31→11:50)
[2022-07-22] MEDS: Albuterol/Ipratropium NEB.SOL (2.5/0.5 MG) 3 ML NEB.SOLN INH SCH ×4 (01:14→18:52)
[2022-07-22] MEDS: VALPROIC ACID IVPB SCH ×4 (05:13→23:44)
[2022-07-22] MEDS: ZOSYN 3.375 GM Q8H per EXTENDED INFUSION IV SCH ×3 (05:13→22:24)
[2022-07-22] MEDS: NS 0.9% IVPB SCH ×4 (05:13→23:44)
[2022-07-22 05:17] LABS: Hematocrit 36 % (42-52); Hemoglobin 11.7 g/dL (14.0-18.0); Mean Corpuscular HGB Conc 33 g/dL (31-36); Mean Corpuscular Hemoglobin 32 pg (27-31); Mean Corpuscular Volume 98 fL (80-94); Mean Platelet Volume 8.9 fL (7.4-10.4); Platelet Count 92 10^3/uL (150-450); Red Blood Count 3.68 10^6 /uL (4.18-5.48); Red Cell Distribution Width 14 % (10-15); White Blood Count 5.4 10^3/uL (3.5-10.8)
[2022-07-22 05:19] LABS: INR 1.7 (0.89-1.11)
[2022-07-22] MEDS: Levothyroxine 100 MCG/5 ML VIAL IV SCH (05:19)
[2022-07-22 05:49] LABS: Albumin 2.3 g/dL (3.2-5.2); Albumin/Globulin Ratio 1.2 (1-3); Calcium 7.3 mg/dL (8.6-10.3); Magnesium 1.6 mg/dL (1.9-2.7); Potassium 4.3 mmol/L (3.5-5.0); Total Bilirubin 0.3 mg/dL (0.2-1.0); Total Protein 4.3 g/dL (6.4-8.9); eGFR CKD-EPI 76.5 (>60)
[2022-07-22] MEDS ORDERED: Magnesium Sulfate 2 gm BAG 2 GM/50 ML BAG IVPB ONE (06:02)
[2022-07-22 06:05] LABS: ABS Lymphocytes 0.8 10^3/ul (1.0-4.8); ABS Monocytes 0.4 10^3/ul (0-0.8); ABS Neutrophils 4.2 10^3/ul (1.5-7.7); Eosinophil % 0.1 %; Lymphocyte % 14.7 %
[2022-07-22] MEDS: Dexamethasone IV 4 MG/ML VIAL 1 ml VIAL IV SLOW PU SCH (09:32)
[2022-07-22] MEDS: Pantoprazole VIAL 40 MG VIAL IV SCH ×2 (09:32→22:23)
[2022-07-22] MEDS: levETIRAcetam IV 750 MG in NS 0.9% 100 ML IVPB SCH ×2 (09:43→22:23)
[2022-07-22] MEDS: Polyethylene Glycol 3350 17 GM PACKET PO SCH (11:52)
[2022-07-22] MEDS: Remdesivir 100 mg Vial 100 MG in NS 0.9% 250 ml 230 ML IV SCH (22:22)
[2022-07-22] MEDS: Enoxaparin 40 MG/0.4 ML SYR SUBCUT SCH (22:23)
[2022-07-23] MEDS: DOXYcycline 100 MG in NS 0.9% 250 ml 250 ML IVPB SCH ×2 (00:38→11:13)
[2022-07-23] MEDS: Albuterol/Ipratropium NEB.SOL (2.5/0.5 MG) 3 ML NEB.SOLN INH SCH ×4 (00:45→19:20)
[2022-07-23] MEDS: NS 0.9% IVPB SCH (05:21)
[2022-07-23] MEDS: VALPROIC ACID IVPB SCH (05:21)
[2022-07-23] MEDS: ZOSYN 3.375 GM Q8H per EXTENDED INFUSION IV SCH ×2 (05:22→13:06)
[2022-07-23 06:45] LABS: ABS Monocytes 0.5 10^3/ul (0-0.8); ABS Neutrophils 3.9 10^3/ul (1.5-7.7); Hematocrit 35 % (42-52); Hemoglobin 11.8 g/dL (14.0-18.0); Lymphocyte % 18.1 %; Mean Corpuscular HGB Conc 34 g/dL (31-36); Mean Corpuscular Hemoglobin 33 pg (27-31); Mean Corpuscular Volume 97 fL (80-94); Platelet Count 113 10^3/uL (150-450); Red Blood Count 3.55 10^6 /uL (4.18-5.48); Red Cell Distribution Width 14 % (10-15); White Blood Count 5.4 10^3/uL (3.5-10.8)
[2022-07-23 06:51] LABS: INR 1.34 (0.89-1.11)
[2022-07-23 07:17] LABS: Albumin 2.3 g/dL (3.2-5.2); Calcium 7.8 mg/dL (8.6-10.3); Globulin 2.3 g/dL (2-4); Magnesium 2.4 mg/dL (1.9-2.7); Potassium 4.4 mmol/L (3.5-5.0); Total Bilirubin 0.3 mg/dL (0.2-1.0); Total Protein 4.6 g/dL (6.4-8.9); eGFR CKD-EPI 102.7 (>60)
[2022-07-23] MEDS: Levothyroxine 100 MCG/5 ML VIAL IV SCH (08:33)
[2022-07-23] MEDS: Pantoprazole VIAL 40 MG VIAL IV SCH ×2 (08:33→21:25)
[2022-07-23] MEDS: Dexamethasone IV 4 MG/ML VIAL 1 ml VIAL IV SLOW PU SCH (08:34)
[2022-07-23] MEDS: Polyethylene Glycol 3350 17 GM PACKET PO SCH (08:46)
[2022-07-23] MEDS: levETIRAcetam IV 750 MG in NS 0.9% 100 ML IVPB SCH (09:01)
[2022-07-23] MEDS: cefTRIAXone 1 gm/50 mL D5W 1 GM/50 ML BAG IV SCH (18:13)
[2022-07-23] MEDS: Remdesivir 100 mg Vial 100 MG in NS 0.9% 250 ml 230 ML IV SCH (21:23)
[2022-07-23] MEDS: Enoxaparin 40 MG/0.4 ML SYR SUBCUT SCH (21:29)
[2022-07-24] MEDS: Albuterol/Ipratropium NEB.SOL (2.5/0.5 MG) 3 ML NEB.SOLN INH SCH ×2 (01:09→06:59)
[2022-07-24 06:30] LABS: INR 1.33 (0.89-1.11)
[2022-07-24 06:49] LABS: Albumin 2.5 g/dL (3.2-5.2); Calcium 8.2 mg/dL (8.6-10.3); Globulin 2.4 g/dL (2-4); Potassium 4.1 mmol/L (3.5-5.0); Total Bilirubin 0.3 mg/dL (0.2-1.0); Total Protein 4.9 g/dL (6.4-8.9); eGFR CKD-EPI 100.8 (>60)
[2022-07-24] MEDS ORDERED: Albuterol/Ipratropium NEB.SOL (2.5/0.5 MG) 3 ML NEB.SOLN INH PRN (07:03)
[2022-07-24] MEDS: Dexamethasone IV 4 MG/ML VIAL 1 ml VIAL IV SLOW PU SCH (09:41)
[2022-07-24] MEDS: Polyethylene Glycol 3350 17 GM PACKET PO SCH (09:41)
[2022-07-24] MEDS: Pantoprazole VIAL 40 MG VIAL IV SCH ×2 (09:41→20:30)
[2022-07-24 11:52] LABS: ABS Lymphocytes 1.2 10^3/ul (1.0-4.8); ABS Monocytes 0.6 10^3/ul (0-0.8); ABS Neutrophils 5.6 10^3/ul (1.5-7.7); Hematocrit 35 % (42-52); Hemoglobin 11.6 g/dL (14.0-18.0); Lymphocyte % 16.3 %; Mean Corpuscular HGB Conc 33 g/dL (31-36); Mean Corpuscular Hemoglobin 32 pg (27-31); Mean Corpuscular Volume 97 fL (80-94); Mean Platelet Volume 9.5 fL (7.4-10.4); Platelet Count 123 10^3/uL (150-450); Red Blood Count 3.59 10^6 /uL (4.18-5.48); Red Cell Distribution Width 14 % (10-15); White Blood Count 7.4 10^3/uL (3.5-10.8)
[2022-07-24] MEDS: cefTRIAXone 1 gm/50 mL D5W 1 GM/50 ML BAG IV SCH (16:16)
[2022-07-24] MEDS: Enoxaparin 40 MG/0.4 ML SYR SUBCUT SCH (20:34)
[2022-07-25 05:25] LABS: Anion Gap 4 mmol/L (2-11); Blood Urea Nitrogen 28 mg/dL (6-24); CO2 Carbon Dioxide 35 mmol/L (22-32); Calcium 8.3 mg/dL (8.6-10.3); Chloride 105 mmol/L (101-111); Glucose 223 mg/dL (70-100); Potassium 4.2 mmol/L (3.5-5.0); Sodium 144 mmol/L (135-145); eGFR CKD-EPI 99.4 (>60)
[2022-07-25 05:54] LABS: Magnesium 1.9 mg/dL (1.9-2.7)
[2022-07-25] MEDS ORDERED: Magnesium Sulfate IV 1GM/100ML 1 GM/100 ML BAG IV ONE (06:33)
[2022-07-25 06:53] LABS: Hematocrit 36 % (42-52); Hemoglobin 12.1 g/dL (14.0-18.0); Mean Corpuscular HGB Conc 33 g/dL (31-36); Mean Corpuscular Hemoglobin 32 pg (27-31); Mean Corpuscular Volume 96 fL (80-94); Mean Platelet Volume 9.8 fL (7.4-10.4); Platelet Count 133 10^3/uL (150-450); Red Blood Count 3.77 10^6 /uL (4.18-5.48); Red Cell Distribution Width 14 % (10-15); White Blood Count 6.3 10^3/uL (3.5-10.8)
[2022-07-25 07:19] LABS: % Iron Saturation 53 % (15-55); Iron 85 ug/dL (50-212); Total Iron Binding Capacity 161 mcg/dL (250-450); Transferrin 115 mg/dL (203-362); Unsaturated Iron Binding 76 ug/dL
[2022-07-25 07:38] LABS: Ferritin 551.5 ng/mL (24-336)
[2022-07-25 07:48] LABS: ABS Lymphocytes 1.7 10^3/ul (1.0-4.8); ABS Monocytes 0.6 10^3/ul (0-0.8); Lymphocyte % 26.4 %; Nucleated Red Blood Cells % 0.2
[2022-07-25] MEDS: Pantoprazole VIAL 40 MG VIAL IV SCH ×2 (08:43→20:25)
[2022-07-25] MEDS: Dexamethasone IV 4 MG/ML VIAL 1 ml VIAL IV SLOW PU SCH (08:45)
[2022-07-25] MEDS: Polyethylene Glycol 3350 17 GM PACKET PO SCH (08:46)
[2022-07-25 11:09] LABS: Folate > 20.00 ng/mL (5.90-24.80)
[2022-07-25 11:10] LABS: Vitamin B12 > 1450 pg/mL (180-914)
[2022-07-25] MEDS: cefTRIAXone 1 gm/50 mL D5W 1 GM/50 ML BAG IV SCH (17:13)
[2022-07-25] MEDS: Enoxaparin 40 MG/0.4 ML SYR SUBCUT SCH (20:25)
[2022-07-26 04:34] LABS: Hematocrit 36 % (42-52); Hemoglobin 12.1 g/dL (14.0-18.0); Mean Corpuscular HGB Conc 34 g/dL (31-36); Mean Corpuscular Hemoglobin 32 pg (27-31); Mean Corpuscular Volume 96 fL (80-94); Mean Platelet Volume 9.1 fL (7.4-10.4); Platelet Count 135 10^3/uL (150-450); Red Blood Count 3.76 10^6 /uL (4.18-5.48); Red Cell Distribution Width 14 % (10-15); White Blood Count 6.4 10^3/uL (3.5-10.8)
[2022-07-26 05:19] LABS: Calcium 8.1 mg/dL (8.6-10.3); Potassium 4.3 mmol/L (3.5-5.0); eGFR CKD-EPI 99.4 (>60)
[2022-07-26 05:53] LABS: Magnesium 1.9 mg/dL (1.9-2.7)
[2022-07-26] MEDS ORDERED: Magnesium Sulfate IV 1GM/100ML 1 GM/100 ML BAG IV ONE (07:23)
[2022-07-26 07:35] LABS: ABS Lymphocytes 2.3 10^3/ul (1.0-4.8); ABS Monocytes 0.7 10^3/ul (0-0.8); ABS Neutrophils 3.4 10^3/ul (1.5-7.7); Eosinophil % 0.1 %; Lymphocyte % 35.7 %; Nucleated Red Blood Cells % 0.1
[2022-07-26] MEDS: Dexamethasone IV 4 MG/ML VIAL 1 ml VIAL IV SLOW PU SCH (11:09)
[2022-07-26] MEDS: Pantoprazole VIAL 40 MG VIAL IV SCH (11:10)
[2022-07-26] MEDS: Polyethylene Glycol 3350 17 GM PACKET PO SCH (11:10)
[2022-07-26] MEDS ORDERED: Midazolam 5 mg/5 ml VIAL 1 mg/ml 5 ml VIAL (5 mg) ONE (16:28)
[2022-07-26] MEDS ORDERED: fentaNYL 100 mcg/2 ml 50 MCG/ML VIAL ONE (16:28)
[2022-07-26] MEDS ORDERED: cefTRIAXone 1 gm/50 mL D5W 1 GM/50 ML BAG IV ONE (17:00)
[2022-07-26] MEDS: Enoxaparin 40 MG/0.4 ML SYR SUBCUT SCH (19:59)
[2022-07-26] MEDS: Lansoprazole SUSP ORALSYR 3 MG/ML PO SCH (21:39)
[2022-07-27 06:08] LABS: Hematocrit 38 % (42-52); Hemoglobin 12.5 g/dL (14.0-18.0); Mean Corpuscular HGB Conc 33 g/dL (31-36); Mean Corpuscular Hemoglobin 32 pg (27-31); Mean Corpuscular Volume 97 fL (80-94); Mean Platelet Volume 9.9 fL (7.4-10.4); Platelet Count 184 10^3/uL (150-450); Red Blood Count 3.91 10^6 /uL (4.18-5.48); Red Cell Distribution Width 14 % (10-15); White Blood Count 6.8 10^3/uL (3.5-10.8)
[2022-07-27 06:32] LABS: Calcium 8.2 mg/dL (8.6-10.3); Potassium 4.5 mmol/L (3.5-5.0); eGFR CKD-EPI 105.7 (>60)
[2022-07-27 07:23] LABS: ABS Eosinophils 0.1 10^3/ul (0-0.6); ABS Lymphocytes 2.5 10^3/ul (1.0-4.8); ABS Monocytes 0.7 10^3/ul (0-0.8); ABS Neutrophils 3.6 10^3/ul (1.5-7.7); Lymphocyte % 36.3 %; Nucleated Red Blood Cells % 0.2
[2022-07-27] MEDS: Dexamethasone IV 4 MG/ML VIAL 1 ml VIAL IV SLOW PU SCH (08:51)
[2022-07-27] MEDS: Lansoprazole SUSP ORALSYR 3 MG/ML PO SCH ×2 (08:52→22:19)
[2022-07-27] MEDS: levETIRAcetam LIQ 500 MG/5 ML UDC PO SCH ×2 (08:52→22:18)
[2022-07-27] MEDS: Polyethylene Glycol 3350 17 GM PACKET PO SCH (08:53)
[2022-07-27] MEDS: Enoxaparin 40 MG/0.4 ML SYR SUBCUT SCH (22:16)
[2022-07-28 07:26] LABS: Hematocrit 39 % (42-52); Hemoglobin 12.9 g/dL (14.0-18.0)
[2022-07-28] MEDS: levETIRAcetam LIQ 500 MG/5 ML UDC PO SCH ×2 (08:29→22:00)
[2022-07-28] MEDS: Lansoprazole SUSP ORALSYR 3 MG/ML PO SCH ×2 (08:31→22:00)
[2022-07-28] MEDS: Polyethylene Glycol 3350 17 GM PACKET PO SCH (08:31)
[2022-07-28] MEDS: Enoxaparin 40 MG/0.4 ML SYR SUBCUT SCH (22:00)
[2022-07-29] MEDS: levETIRAcetam LIQ 500 MG/5 ML UDC PO SCH (07:41)
[2022-07-29] MEDS: Lansoprazole SUSP ORALSYR 3 MG/ML PO SCH (07:41)
[2022-07-29] MEDS: Polyethylene Glycol 3350 17 GM PACKET PO SCH (07:43)
[2022-07-29 07:52] VITALS: BP 108/71
== END 2022-07-29 10:15 | DRG 177 ==
LOC: EDHOLD 08:36 → ED 08:36 → SUATTDRO 11:45 → MED 21:02 → SUATTDRO 07-20 07:25 → ICU 07-20 20:07 → MED 07-23 15:18
PROVIDERS: ADMIT Family Medicine; ATTEND Internal Medicine